=== PATIENT | male | born 1980 | race Caucasian/White ===

== ENCOUNTER 2019-11-15 19:35 | Emergency (ER) | payer OTHER, MEDICAID, SELFPAY ==
[2019-11-15 19:51] VITALS: BP 136/77; PULSE 73; RESP 15; TEMP 36.8; O2SAT 99; BMI 24.4
--- NOTE | 2019-11-15 20:03 | DI.CT.S_ITS ---
PROCEDURE: CT HEAD/BRAIN WO CON INDICATIONS: Trauma -10 ft fall TECHNIQUE: Noncontrast 4.5 mm thick angled axial sections acquired from the foramen magnum to the vertex, with coronal and sagittal reformats. For radiation dose reduction, the following was used: automated exposure control, adjustment of mA and/or kV according to patient size. COMPARISON: None. FINDINGS: Image quality: Excellent. CSF spaces: Basal cisterns are patent. No extra-axial fluid collections. Ventricles are normal in size and shape. Brain: No midline shift. No intracranial masses or hemorrhage. Gold-white matter interface is normal. Skull and face: Calvarium and visualized facial bones are intact, without suspicious lesions. Sinuses: Visualized sinuses and mastoids are clear. IMPRESSION: No acute intracranial process. Dictated by: Vijay Conte M.D. on 11/15/2019 at 21:11 Approved by: Vijay Conte M.D. on 11/15/2019 at 21:13
--- NOTE | 2019-11-15 20:03 | DI.CT.S_ITS ---
PROCEDURE: CT CERVICAL SPINE WO CON INDICATIONS: Trauma - 10 ft.fall TECHNIQUE: Noncontrast 3 mm thick sections acquired from the skull base to the T4 level. Sagittal and coronal reformats were then constructed. For radiation dose reduction, the following was used: automated exposure control, adjustment of mA and/or kV according to patient size. COMPARISON: None. FINDINGS: Image quality: Excellent. Bones: No fractures or dislocations. Visualized superior ribs are intact. Straightening of the normal lordotic curvature. Multilevel degenerative endplate sclerosis and spurring. Diffuse facet arthropathy. There is levocurvature Soft tissues: Prevertebral soft tissues are normal in thickness. No paravertebral hematomas. No apical pneumothoraces. IMPRESSION: No fracture Straightening of the normal lordotic curvature. Dictated by: Vijay Conte M.D. on 11/15/2019 at 21:13 Approved by: Vijay Conte M.D. on 11/15/2019 at 21:18
--- NOTE | 2019-11-15 20:03 | DI.CT.S_ITS ---
PROCEDURE: CT CHEST ABD PEL W CON INDICATIONS: Trauma -10 ft fall TECHNIQUE: After the administration of intravenous contrast, 5 mm thick sections acquired from the lung apices to the symphysis. 2.5 mm thick coronal and sagittal reformats were acquired. Additional 7 mm thick coronal maximum intensity projection (MIP) reformats acquired through the lungs. Optional 10-minute delayed imaging may be performed from the kidneys to the bladder. For radiation dose reduction, the following was used: automated exposure control, adjustment of mA and/or kV according to patient size. COMPARISON: None. FINDINGS: Image quality: Excellent. CHEST: Lungs: No pulmonary contusions or lacerations. No acute airspace opacities. No pneumothorax or hemothorax. Central and peripheral airways appear patent and normal in caliber. Mediastinum: No mediastinal hematomas. Heart size is normal. No pericardial effusion. Thoracic aorta and pulmonary arteries demonstrate normal size and enhancement. No mediastinal or hilar adenopathy. Esophagus is normal in caliber. No hiatal hernia. Chest wall: No rib fractures. No subcutaneous emphysema. No axillary or supraclavicular adenopathy. Thyroid gland negative. ABDOMEN: Solid organs: Liver is normal in size and enhancement, without lacerations. Gallbladder contains tiny incidental 1 mm layering gravel like gallstones. Biliary system is non-dilated. Pancreas enhances normally, without transection. Spleen is normal in size and enhancement, without lacerations. No adrenal hematomas. Both kidneys enhance normally, without hydronephrosis or lacerations. Peritoneum and bowel: No free fluid or air. Unenhanced bowel loops demonstrate normal wall thickness and caliber. Nodes and vessels: No retroperitoneal or mesenteric adenopathy. Aorta and inferior vena cava are normal in size and enhancement. Miscellaneous: No ventral hernias. PELVIS: Genitourinary: Bladder wall thickness is normal. Miscellaneous: No inguinal hernias or adenopathy. Bones: Pelvic ring and hip joints appear intact. No vertebral compression fractures. IMPRESSION: Trace perihepatic fluid although the exact origin is unclear. Elsewhere, no acute abnormality identified Dictated by: Vijay Conte M.D. on 11/15/2019 at 21:18 Approved by: Vijay Conte M.D. on 11/15/2019 at 21:23
[2019-11-15 20:12] VITALS: BP 134/78; PULSE 64; RESP 16; O2SAT 99
--- NOTE | 2019-11-15 20:15 | ED.FALL ---
HPI - Fall General Chief Complaint: Trauma Stated Complaint: head, neck, back pain s/p fall Time Seen by Provider: 11/15/19 19:40 Source: patient and family Mode of arrival: Family Vehicle Limitations: no limitations History of Present Illness HPI Narrative: 39-year-old male nonsmoker with noncontributory medical history presents with his in the chief complaint of multiple injuries after a fall. He was standing a top multiple derrek of hay, approximately 10 ft up when he lost his balance and fell largely onto his right side and back. He denies loss of consciousness and has full recall. Though he complains of midline neck tenderness and tenderness to much of his back his primary complaint is with his right shoulder. He has full range of motion but states that her 20 moves it. He is not dizzy nor weak or lightheaded. He denies any cough, shortness of breath nor nausea or vomiting. Related Data Previous Rx's Medication Instructions Recorded cyclobenzaprine 10 mg PO TID PRN #14 tab 11/15/19 hydrocodone-acetaminophen 1 tab PO Q4-6H PRN #10 tab 11/15/19 ketorolac 10 mg PO Q6H PRN #14 tab 11/15/19 ondansetron 4 mg PO TID-QID PRN #10 tab 11/15/19 Allergies Allergy/AdvReac Type Severity Reaction Status Date / Time amoxicillin Allergy Anaphylaxis Verified 11/15/19 19:53 amitriptyline AdvReac Verified 11/15/19 19:53 diphenhydramine AdvReac Verified 11/15/19 19:53 [From Benadryl] haloperidol [From Haldol] AdvReac Verified 11/15/19 19:53 Review of Systems Constitutional Constitutional: Denies chills, Denies fatigue, Denies fever(s), Denies frequent falls, Denies lethargy and Denies weakness Eyes Eyes: Denies change in vision, Denies eye discharge, Denies irritation and Denies loss of vision ENT Ears, Nose, Mouth, and Throat: Denies change in voice, Denies dizziness, Reports neck pain, Denies sore throat and Denies throat swelling Cardiovascular Cardiovascular: Denies chest pain, Denies irregular heart rhythm, Denies lightheadedness, Denies palpitations, Denies dyspnea, Denies dyspnea on exertion and Denies orthopnea Respiratory Respiratory: Denies cough, Denies dyspnea, Denies dyspnea on exertion and Denies wheezing Gastrointestinal Gastrointestinal: Denies abdominal pain, Denies change in bowel habits, Denies diarrhea, Denies nausea and Denies vomiting Genitourinary Genitourinary: Denies hematuria, Denies flank pain, Denies urinary incontinence and Denies urinary urgency Musculoskeletal Musculoskeletal: Reports back pain, Reports limited range of motion, Denies muscle weakness, Reports neck pain, Denies numbness and Denies tingling Integumentary/Breasts Skin/Breast: Denies pruritus, Denies erythema, Denies rash and Denies wounds Neurologic Neurologic: Denies behavioral changes, Denies confusion, Denies dizziness, Denies frequent falls, Denies loss of vision, Denies numbness, Denies tingling and Denies weakness Psychiatric Psychiatric: Denies anxiety, Denies behavioral changes, Denies confusion, Denies depression, Denies homicidal ideation and Denies suicidal ideation Endocrine Endocrine: Denies fatigue, Denies flushing and Denies palpitations Hematologic/Lymphatic Hematologic/Lymphatic: Denies easy bruising Allergic/Immunologic Allergic/Immunologic: Denies urticaria, Denies throat swelling and Denies wheezing Patient History Social History Smoking Status: Never smoker Smoking Status: Never smoker Substance Use Type: marijuana Exam Narrative Exam Narrative: GENERAL: [39] year old patient appears stated age. Well-nourished, well-developed patient, in mild distress. GCS 15 HEAD: Atraumatic. Normocephalic. EYES: Pupils equal round and reactive. Extraocular motions intact. No scleral icterus. No injection or drainage. ENT: Nose without bleeding, purulent drainage. Throat without erythema, tonsillar hypertrophy or exudate. Airway patent. NECK: Trachea midline. Non tender. Mild midline tenderness, step-offs or crepitance. C-collar in place CARDIOVASCULAR: Regular rate and rhythm without murmurs, gallops, or rubs. RESPIRATORY: Clear to auscultation. Breath sounds equal bilaterally. No wheezes, rales, or rhonchi. GASTROINTESTINAL: Abdomen soft, non-tender, nondistended. EXTREMITIES: No edema or joint tenderness. BACK: Patient has some tenderness to palpation of mid thoracic spine NEURO: AOx3. SKIN: No rash or erythema of visible areas Initial Vital Signs Initial Vital Signs: Vital Signs Temperature 98.3 F 11/15/19 19:51 Pulse Rate 73 11/15/19 19:51 Respiratory Rate 15 11/15/19 19:51 Blood Pressure 136/77 11/15/19 19:51 Pulse Oximetry 99 11/15/19 19:51 Course Orders Ordered: Discontinued Medications Hydrocodone Bitart/Acetaminophen (Vicodin 5/325 Prepack) 1 bottle MISC SEEINSTR ONE Stop: 11/15/19 21:36 Last Admin: 11/15/19 21:54 Dose: 1 bottle Documented by: KIRA Hydromorphone HCl (Dilaudid) 0.5 mg IV NOW ONE Stop: 11/15/19 20:03 Last Admin: 11/15/19 20:47 Dose: 0.5 mg Documented by: KIRA Ketorolac Tromethamine (Toradol) 15 mg IV NOW ONE Stop: 11/15/19 21:36 Last Admin: 11/15/19 21:53 Dose: 15 mg Documented by: KIRA Ondansetron HCl (Zofran) 4 mg IV NOW ONE Stop: 11/15/19 20:03 Last Admin: 11/15/19 20:47 Dose: 4 mg Documented by: KIRA Ondansetron HCl (Zofran Odt Prepack) 1 bottle MISC SEEINSTR ONE Stop: 11/15/19 21:36 Last Admin: 11/15/19 21:54 Dose: 1 bottle Documented by: KIRA Vital Signs Vital signs: Vital Signs - 8 hr 11/15/19 19:51 11/15/19 20:12 Temperature 98.3 F Pulse Rate 73 64 Respiratory Rate 15 16 Blood Pressure 136/77 Blood Pressure [Left Arm] 134/78 Pulse Oximetry 99 99 MDM - Fall Lab Data Result diagrams: 11/15/19 20:05 11/15/19 20:05 Labs: Lab Results 11/15/19 11/15/19 11/15/19 Range/Units 20:05 20:05 20:05 WBC 13.2 H (4.5-11.0) X10^3/uL RBC 3.99 L (4.5-5.9) X10^6/uL Hgb 12.3 L (13.5-17.5) g/dL Hct 36.5 L (41-53) % MCV 91.5 (80-100) fL MCH 30.9 (26-34) PG MCHC 33.8 (30-36) % RDW 14.7 (11.6-14.8) % Plt Count 402 H (150-400) X10^3/uL Neut % (Auto) 82.3 H (50-75) % Lymph % (Auto) 12.5 L (25-40) % [place] % (Auto) 4.2 (3-14) % Eos % (Auto) 0.6 L (2-4) % Baso % (Auto) 0.4 (0-2) % Neut # (Auto) 63727 H (7708-6478) /uL Lymph # (Auto) 1600 (6880-8345) /uL [place] # (Auto) 600 (0-900) /uL Eos # (Auto) 100 (0-450) /uL Baso # (Auto) 100 (0-100) /uL Sodium 142 (137-145) mmol/L Potassium 3.1 L (3.4-5.1) mmol/L Chloride 111 H (98-107) mmol/L Carbon Dioxide 24 (22-32) mmol/L BUN 17 (9-20) mg/dL Creatinine 0.56 L (0.66-1.25) mg/dL Estimated GFR > 60.0 (>60) mL/min BUN/Creatinine Ratio 30.4 H (6-22) Glucose 94 (70-100) mg/dL Calcium 9.2 (8.4-10.2) mg/dL Total Bilirubin 0.9 (0.2-1.3) mg/dL AST 24 (17-59) IU/L ALT 17 (<50) IU/L Alkaline Phosphatase 72 (38-126) U/L Total Protein 6.8 (6.3-8.2) g/dL Albumin 4.0 (3.5-5.0) g/dL Globulin 2.8 (1.7-4.1) g/dL Albumin/Globulin Ratio 1.4 (1.0-2.8) Lipase 53 (23-300) U/L Ethyl Alcohol < 10 ( - 10) mg/dL Blood Type A Positive Antibody Screen Negative Imaging Data CT scan - head: Radiologist's Impression: Tee Greenberg 39 M [address] [address] [address] Scan Report Signed Patient: Tee Greenberg CMR#: [id number] : 1980Acct:[id number] Age/Sex: 39 / MDate of Service: 11/15/19 Loc: ED Accession Number: [id number] Procedure: CT head/brain wo con Ordering Provider: Zohaib Cline D.O. PROCEDURE: CT HEAD/BRAIN WO CON INDICATIONS: Trauma -10 ft fall TECHNIQUE: Noncontrast 4.5 mm thick angled axial sections acquired from the foramen magnum to the vertex, with coronal and sagittal reformats. For radiation dose reduction, the following was used: automated exposure control, adjustment of mA and/or kV according to patient size. COMPARISON: None. FINDINGS: Image quality: Excellent. CSF spaces: Basal cisterns are patent. No extra-axial fluid collections. Ventricles are normal in size and shape. Brain: No midline shift. No intracranial masses or hemorrhage. Gold-white matter interface is normal. Skull and face: Calvarium and visualized facial bones are intact, without suspicious lesions. Sinuses: Visualized sinuses and mastoids are clear. IMPRESSION: No acute intracranial process. Dictated by: Vijay Conte M.D. on 11/15/2019 at 21:11 Approved by: Vijay Conte M.D. on 11/15/2019 at 21:13 [facility] DATE TYPE STATUS AUTHOR Shantanu 11/15/19 20:03 Vijay Conte 11/15/19 20:03 Vijay Conte 11/15/19 20:03 Vijay Conte YariTee Michaela 39, M0 1980 [facility] ER, Main ED R05 180.34cm 79.379kg BMI: 24.4kg/m? Trauma Search Chart No Data to Display No Data to Display Anaphylaxis No Data to Display Today 20:12 Tee Greenberg 39 M [address] [address] [address] Scan Report Signed Patient: Tee Greenberg CMR#: [id number] : 1980Acct:[id number] Age/Sex: 39 / MDate of Service: 11/15/19 Loc: ED Accession Number: [id number] Procedure: CT cervical spine wo con Ordering Provider: Zohaib Cline D.O. PROCEDURE: CT CERVICAL SPINE WO CON INDICATIONS: Trauma - 10 ft.fall TECHNIQUE: Noncontrast 3 mm thick sections acquired from the skull base to the T4 level. Sagittal and coronal reformats were then constructed. For radiation dose reduction, the following was used: automated exposure control, adjustment of mA and/or kV according to patient size. COMPARISON: None. FINDINGS: Image quality: Excellent. Bones: No fractures or dislocations. Visualized superior ribs are intact. Straightening of the normal lordotic curvature. Multilevel degenerative endplate sclerosis and spurring. Diffuse facet arthropathy. There is levocurvature Soft tissues: Prevertebral soft tissues are normal in thickness. No paravertebral hematomas. No apical pneumothoraces. IMPRESSION: No fracture Straightening of the normal lordotic curvature. Dictated by: Vijay Conte M.D. on 11/15/2019 at 21:13 Approved by: Vijay Conte M.D. on 11/15/2019 at 21:18 [facility] DATE TYPE STATUS AUTHOR Hx 11/15/19 20:03 Vijay Conte 11/15/19 20:03 Vijay Conte 11/15/19 20:03 Vijay Conte Michael C 39, M0 1980 [facility] ED R05 180.34cm 79.379kg BMI: 24.4kg/m? Trauma Search Chart No Data to Display No Data to Display Anaphylaxis No Data to Display Today 20:12 Tee Greenberg 39 M 1980 [place] [address] CT Scan Report Signed Patient: Tee Greenberg CMR#: [id number] : 1980Acct:[id number] Age/Sex: 39 / MDate of Service: 11/15/19 Loc: ED Accession Number: [id number] Procedure: CT chest abd pel w con Ordering Provider: Zohaib Cline D.O. PROCEDURE: CT CHEST ABD PEL W CON INDICATIONS: Trauma -10 ft fall TECHNIQUE: After the administration of intravenous contrast, 5 mm thick sections acquired from the lung apices to the symphysis. 2.5 mm thick coronal and sagittal reformats were acquired. Additional 7 mm thick coronal maximum intensity projection (MIP) reformats acquired through the lungs. Optional 10-minute delayed imaging may be performed from the kidneys to the bladder. For radiation dose reduction, the following was used: automated exposure control, adjustment of mA and/or kV according to patient size. COMPARISON: None. FINDINGS: Image quality: Excellent. CHEST: Lungs: No pulmonary contusions or lacerations. No acute airspace opacities. No pneumothorax or hemothorax. Central and peripheral airways appear patent and normal in caliber. Mediastinum: No mediastinal hematomas. Heart size is normal. No pericardial effusion. Thoracic aorta and pulmonary arteries demonstrate normal size and enhancement. No mediastinal or hilar adenopathy. Esophagus is normal in caliber. No hiatal hernia. Chest wall: No rib fractures. No subcutaneous emphysema. No axillary or supraclavicular adenopathy. Thyroid gland negative. ABDOMEN: Solid organs: Liver is normal in size and enhancement, without lacerations. Gallbladder contains tiny incidental 1 mm layering gravel like gallstones. Biliary system is non-dilated. Pancreas enhances normally, without transection. Spleen is normal in size and enhancement, without lacerations. No adrenal hematomas. Both kidneys enhance normally, without hydronephrosis or lacerations. Peritoneum and bowel: No free fluid or air. Unenhanced bowel loops demonstrate normal wall thickness and caliber. Nodes and vessels: No retroperitoneal or mesenteric adenopathy. Aorta and inferior vena cava are normal in size and enhancement. Miscellaneous: No ventral hernias. PELVIS: Genitourinary: Bladder wall thickness is normal. Miscellaneous: No inguinal hernias or adenopathy. Bones: Pelvic ring and hip joints appear intact. No vertebral compression fractures. IMPRESSION: Trace perihepatic fluid although the exact origin is unclear. Elsewhere, no acute abnormality identified Dictated by: Vijay Conte M.D. on 11/15/2019 at 21:18 Approved by: Vijay Conte M.D. on 11/15/2019 at 21:23 Discharge Plan Departure Patient Disposition: Home Clinical Impression: Muscle strain of shoulder region Qualifiers: Encounter type: initial encounter Laterality: right Qualified Code(s): S46.911A - Strain of unspecified muscle, fascia and tendon at shoulder and upper arm level, right arm, initial encounter Discharge Date/Time: 11/15/19 22:14 Instructions: DI for Trauma Activity Restrictions/Additional Instructions: *You have been diagnosed with [fall with contusion, spasm and sprain] *What to do: *Take medications as directed *Follow up with your primary care provider in 2-3 days, call for an appointment. Let them know you were seen in the Emergency Department and that we ask that you be seen in follow up *Return to ER if you should have any new, worsening or concerning symptoms Prescriptions: New cyclobenzaprine 10 mg tablet 10 mg PO TID PRN (Reason: muscle spasm) Qty: 14 RF: 0 hydrocodone-acetaminophen 5-325 mg tablet 1 tab PO Q4-6H PRN (Reason: pain) Qty: 10 RF: 0 ketorolac 10 mg tablet 10 mg PO Q6H PRN (Reason: pain) Qty: 14 RF: 0 ondansetron 4 mg tablet,disintegrating 4 mg PO TID-QID PRN (Reason: nausea and vomiting) Qty: 10 RF: 0 Referrals: Nat Mccormick, [Primary Care Provider] -
[2019-11-15 20:17] LABS: Add Manual Diff / Slide Review NO; Basophils Absolute Auto 100 /uL (0-100); Basophils Percent Auto 0.4 % (0-2); Eosinophils Absolute Auto 100 /uL (0-450); Eosinophils Percent Auto 0.6 % (2-4); Hematocrit 36.5 % (41-53); Hemoglobin 12.3 g/dL (13.5-17.5); Lymphocytes Absolute Auto 1600 /uL (1100-4500); Lymphocytes Percent Auto 12.5 % (25-40); Mean Corpuscular HGB Conc 33.8 % (30-36); Mean Corpuscular Hemoglobin 30.9 PG (26-34); Mean Corpuscular Volume 91.5 fL (80-100); Monocytes Absolute Auto 600 /uL (0-900); Monocytes Percent Auto 4.2 % (3-14); Neutrophils Absolute Auto 10800 /uL (1500-7000); Neutrophils Percent Auto 82.3 % (50-75); Platelet Count 402 X10^3/uL (150-400); Red Blood Cell Count 3.99 X10^6/uL (4.5-5.9); Red Cell Distribution Width 14.7 % (11.6-14.8); White Blood Cell Count 13.2 X10^3/uL (4.5-11.0)
[2019-11-15 20:31] LABS: Alanine Aminotransferase 17 IU/L (<50); Albumin Globulin Ratio 1.4 (1.0-2.8); Alkaline Phosphatase 72 U/L (38-126); Aspartate Aminotransferase 24 IU/L (17-59); BUN Creatinine Ratio 30.4 (6-22); Bilirubin Total 0.9 mg/dL (0.2-1.3); Blood Urea Nitrogen 17 mg/dL (9-20); Calcium 9.2 mg/dL (8.4-10.2); Carbon Dioxide 24 mmol/L (22-32); Chloride 111 mmol/L (98-107); Estimated Glomerular Filt Rate > 60.0 mL/min (>60); Ethanol (ETOH) < 10 mg/dL; Globulin 2.8 g/dL (1.7-4.1); Glucose 94 mg/dL (70-100); HEMOLYSIS < 15 (0-50); Lipase 53 U/L (23-300); Potassium 3.1 mmol/L (3.4-5.1); Sodium 142 mmol/L (137-145); Total Protein 6.8 g/dL (6.3-8.2)
[2019-11-15] MEDS: HYDROMORPHONE 1 MG INJ 0.5 MG IV (20:47)
[2019-11-15] MEDS: ONDANSETRON 4 MG/2 ML INJ IV (20:47)
[2019-11-15] MEDS: KETOROLAC 60 MG/2 ML VIAL 15 MG IV (21:53)
[2019-11-15] MEDS: HYDROCODONE/ACET 5/325 PREPACK 1 BOTTLE MISC (21:54)
[2019-11-15] MEDS: ONDANSETRON 4 MG ODT PREPACK 1 BOTTLE MISC (21:54)
[2019-11-15 22:11] VITALS: BP 136/82; PULSE 52; RESP 18; O2SAT 98
== END 2019-11-15 22:14 | disposition home or self-care (01) ==
PROVIDERS: Emergency Provider Emergency Medicine; PCP Family Medicine
DX: S46.911A Strain of unspecified muscle, fascia and tendon at shoulder and upper arm level, right arm, initial encounter (principal); S19.9XXA Unspecified injury of neck, initial encounter; S09.90XA Unspecified injury of head, initial encounter; W19.XXXA Unspecified fall, initial encounter
CPT/HCPCS: 36415; 70450; 71260; 72125; 74177; 80053; 80320; 83690; 85025; 86850; 86900; 86901; 96374; 96375; 99285; J1170; J1885; J2405; Q9967

== ENCOUNTER 2019-12-26 15:57 | Emergency (ER) | payer OTHER, MEDICAID, SELFPAY ==
--- NOTE | 2019-12-26 16:06 | ED_ITS ---
HPI - General Adult General Chief complaint: Extremity Injury, Lower Stated complaint: poss broken right foot/big toe knuckle Time Seen by Provider: 12/26/19 16:00 Source: patient Mode of arrival: Ambulatory Limitations: no limitations History of Present Illness HPI narrative: 39-year-old male here for evaluation of right foot/great toe pain. Patient states that for the past week he has had pain on the inside of his right foot. Approximately 3 hours ago when he was rolling over a stone with his foot he had a sudden increase in pain. Points to the area at the base of his great toe in the medial aspect is the greatest source of his pain. Other than this no specific trauma. Has not tried anything for symptoms. No prior injuries to his knowledge. Related Data Previous Rx's Medication Instructions Recorded cyclobenzaprine 10 mg PO TID PRN #14 tab 11/15/19 ketorolac 10 mg PO Q6H PRN #14 tab 11/15/19 ondansetron 4 mg PO TID-QID PRN #10 tab 11/15/19 hydrocodone-acetaminophen [P[place]] 1 tab PO Q6H PRN #10 tab 11/16/19 Allergies Allergy/AdvReac Type Severity Reaction Status Date / Time amoxicillin Allergy Anaphylaxis Verified 11/15/19 19:53 amitriptyline AdvReac Verified 11/15/19 19:53 diphenhydramine AdvReac Verified 11/15/19 19:53 [From Benadryl] haloperidol [From Haldol] AdvReac Verified 11/15/19 19:53 Review of Systems Constitutional Constitutional: Denies fever(s) Musculoskeletal Comments: Right great toe/foot pain Integumentary/Breasts Skin/Breast: Denies lesions and Denies rash Neurologic Comments: Tingling down the inside of his right foot Hematologic/Lymphatic Hematologic/Lymphatic: Denies easy bleeding and Denies easy bruising Patient History Medical History Healthy adult (Acute) Social History Smoking Status: Never smoker Smoking Status: Never smoker Substance Use Type: marijuana Exam Initial Vital Signs Initial Vital Signs: Vital Signs Temperature 98.6 F 12/26/19 16:07 Pulse Rate 60 12/26/19 16:07 Respiratory Rate 16 12/26/19 16:07 Blood Pressure 155/80 H 12/26/19 16:07 Pulse Oximetry 97 12/26/19 16:07 Const General: cooperative, comfortable and well developed Cardio Pulses: dorsalis pedis present on the right Skin Lesions: no lesions Rashes: no rashes Neuro Sensory Exam: no sensory deficits noted Extrem Other: Patient's right foot exam unremarkable except for tenderness to palpation along the MTP joint and specifically along bony prominence medial aspect of the base of the right great toe. Exam fairly consistent with a bunion. Course Orders Ordered: ED Orders 12/26/19 16:07 XR foot RT min 3V Stat Vital Signs Vital signs: Vital Signs - 8 hr 12/26/19 16:07 12/26/19 16:52 Temperature 98.6 F Pulse Rate 60 47 L Respiratory Rate 16 16 Blood Pressure 155/80 H Blood Pressure [Left Arm] 138/80 Pulse Oximetry 97 98 Medical Decision Making Imaging Data Extremity x-ray #1: Radiologist's Impression: [address] [address] XRay Report Signed Patient: Tee Greenberg CMR#: [id number] : 1980Acct:[id number] Age/Sex: 39 / MDate of Service: 12/26/19 Loc: ED Accession Number: [id number] Procedure: XR foot RT min 3V Ordering Provider: Tee Ohara D.O. PROCEDURE: XR FOOT RT MIN 3V INDICATIONS: pain in R foot x 1 week TECHNIQUE: 3 views of the foot were acquired. COMPARISON: None. FINDINGS: Bones: No fractures or dislocations. No suspicious bony lesions. Soft tissues: No tibiotalar joint effusion. Achilles tendon appears normal. IMPRESSION: No trauma found. Source of pain is not identified. Dictated by: Agapito Beauchamp M.D. on 12/26/2019 at 15:42 Approved by: Agapito Beauchamp M.D. on 12/26/2019 at 15:43 MDM Narrative Medical decision making narrative: X-ray shows no signs of a fracture. He is neurovascularly intact. Potentially has ligamentous injury to the medial aspect of the MTP joint of his right great toe however is difficult to establish that here in the ER. He was wearing a steel-toed shoe at the time that he was pushing over the rock. Discussed the use of Tylenol and/or ibuprofen for discomfort. Was given a hard sole shoe to help with symptom control. Feel we can hold on further workup for now. Patient is given return precautions. He expressed understanding and agreement. Discharge Plan Departure Prescriptions: No Action cyclobenzaprine 10 mg tablet 10 mg PO TID PRN (Reason: muscle spasm) Qty: 14 RF: 0 ketorolac 10 mg tablet 10 mg PO Q6H PRN (Reason: pain) Qty: 14 RF: 0 ondansetron 4 mg tablet,disintegrating 4 mg PO TID-QID PRN (Reason: nausea and vomiting) Qty: 10 RF: 0 hydrocodone-acetaminophen [P[place]illy] 5-325 mg tablet 1 tab PO Q6H PRN (Reason: pain) Qty: 10 RF: 0
[2019-12-26 16:07] VITALS: BP 155/80; PULSE 60; RESP 16; TEMP 37; O2SAT 97; BMI 23.6
[2019-12-26 16:52] VITALS: BP 138/80; PULSE 47; RESP 16; O2SAT 98
== END 2019-12-26 17:16 | disposition home or self-care (01) ==
PROVIDERS: Emergency Provider Emergency Medicine; PCP Family Medicine
DX: M79.674 Pain in right toe(s) (principal)
CPT/HCPCS: 73630; 99283

== ENCOUNTER 2020-02-12 11:55 | Emergency (ER) | payer OTHER, MEDICAID, SELFPAY ==
[2020-02-12 12:04] VITALS: BP 149/86; PULSE 65; RESP 14; O2SAT 97; BMI 22.3
[2020-02-12 16:30] VITALS: BP 135/69; PULSE 87; RESP 18; O2SAT 99
--- NOTE | 2020-02-12 16:31 | DI.RAD.S_ITS ---
PROCEDURE: XR LUMBAR SPINE 2-3V INDICATIONS: thoracic and lumbar back pain TECHNIQUE: Three views of the lumbar spine were acquired. COMPARISON: None. FINDINGS: Bones: Five [id number] vertebrae are present. There is normal bony alignment. No vertebral body compression fractures. No suspicious bony lesions. Soft tissues: Overlying bowel gas pattern is normal. No suspicious soft tissue calcifications. IMPRESSION: Normal lumbar spine. Dictated by: Jennifer Rodriguez M.D. on 02/12/2020 at 16:17 Approved by: Jennifer Rodriguez M.D. on 02/12/2020 at 16:17
--- NOTE | 2020-02-12 16:31 | DI.RAD.S_ITS ---
PROCEDURE: XR THORACIC SPINE 3V INDICATIONS: thoracic and lumbar back pain TECHNIQUE: Three views of the thoracic spine were acquired. COMPARISON: None. FINDINGS: Bones: No fractures or dislocations. No suspicious bony lesions. 12 pairs of ribs are noted, and appear intact where visualized. Soft tissues: No paravertebral stripe thickening. IMPRESSION: Normal thoracic spine. Dictated by: Jennifer Rodriguez M.D. on 02/12/2020 at 16:10 Approved by: Jennifer Rodriguez M.D. on 02/12/2020 at 16:16
--- NOTE | 2020-02-12 16:39 | ED_ITS ---
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 Patient reports he had moved 60 lb concrete back 5 days ago since then he has been having acute pain on chronic back pain. He states he was seen at [facility] ER and he was given steroids which he had completed for 5 day course. Patient reports no imaging test was done during this visit. Patient reports slight improvement in pressure-like discomfort after the steroids. However, he continues to have constant L4 and L5 back pain which radiates up to his neck and right-sided abdomen. Patient reports pain worsened with movement. Patient reports he has urinary urgency, frequency, dysuria but denies hematuria. Patient denies fever, chills, nausea or vomiting, or rash in his back. Patient denies urinary retention, incontinence for stool or bladder, overt saddle anesthesia. Patient denies IV drug use in the past. Patient reports numbness mostly in anterior and occasional posterior in bilateral legs which comes as a wave. He has been resting his back since the acute pain. He has been using methocarbamol, gabapentin, Motrin, hydrocodone for back pain without much improvement and he continues to take his routine psych medications. Patient is requesting MRI test. Patient does not have primary care physician but sees medical providers at [facility] and used to see Dr. Jacobs. Patient states he was proven for back surgery by technology infusion specialist but had difficult time with medical insurance to forego with this. Related Data Previous Rx's Medication Instructions Recorded cyclobenzaprine 10 mg PO TID PRN #14 tab 11/15/19 ondansetron 4 mg PO TID-QID PRN #10 tab 11/15/19 hydrocodone-acetaminophen [[place]] 1 tab PO Q6H PRN #10 tab 05/07/20 ketorolac 10 mg PO Q8H PRN 5 Days #15 tab 02/12/20 Allergies Allergy/AdvReac Type Severity Reaction Status Date / Time amoxicillin Allergy Anaphylaxis Verified 11/15/19 19:53 amitriptyline AdvReac Verified 11/15/19 19:53 diphenhydramine AdvReac Verified 11/15/19 19:53 [From Benadryl] haloperidol [From Haldol] AdvReac Verified 11/15/19 19:53 Review of Systems <BRAD Sharp - Last Filed: 02/12/20 21:57> Review of Systems Narrative: General: Denies fever, chills, fatigue, malaise, sweats. HEENT: Denies sinus pain, ear pain, sore throat, difficulty swallowing, dizziness. Respiratory: Denies dyspnea, cough, wheezing, hemoptysis, sputum. Cardiovascular: Denies chest pain, palpitations, orthopnea, edema. Gastrointestinal: See HPI : See HPI Musculoskeletal: See HPI Skin: Denies rash, skin lesions, or other. Neurologic: Denies weakness, headache, numbness, change in speech, confusion, seizures, incoordination. Psychiatric: No concerning psychosocial issues. 12-point review of systems is negative except for those stated above. Patient History <BRAD Sharp - Last Filed: 02/12/20 21:57> Medical History (Updated 02/12/20 @ 18:02 by BRAD Sharp) Compression fracture (Acute) Head injury (Acute) PTSD (post-traumatic stress disorder) (Acute) Surgical History (Updated 02/12/20 @ 16:46 by BRAD Sharp) History of appendectomy (Acute) Social History (Updated 02/12/20 @ 16:47 by BRAD Sharp) Smoking Status: Current every day smoker alcohol intake: former substance use type: marijuana Smoking Status: Current every day smoker tobacco type: cigarettes alcohol intake frequency: 0-2 drinks per day Substance Use Type: marijuana Exam <BRAD Sharp - Last Filed: 02/12/20 21:57> Narrative Exam Narrative: GEN: Alert, oriented x 3, well appearing and nourished, and in no acute distress. Head: Normal cephalic, atraumatic. No scalp or temporal tenderness, palpable mass or rash. EYES: Pupils are equal, round, and reactive to light and accommodation. Extraocular muscles are intact bilaterally. There is no subconjunctival hemorrhage, exudate and sclera non-icteric. ENT: Hearing grossly intact. Airway patent. Neck: Trachea in midline. No JVD, non-tender without lymphadenopathy. No masses or thyroid megaly. Supple, non-tender and no meningeal signs. CARDIAC: Normal [place] rate and rhythm without murmurs, gallops, or rubs. No chest wall tenderness. No peripheral edema, cyanosis or pallor. Capillary refill is less than 2 seconds. RESPIRATORY: Lungs are clear to auscultate bilaterally. No cough, wheezes, rales, or rhonchi. No stridor, respiratory distress, increase work of breathing, or accessary muscle used. ABD: Abdomen soft, non distension, tender to palpate in bilateral quadrant worsen right-sided. No guarding or rebound tenderness to palpate. Bowel sounds are normal in all 4 quadrants. There is no palpable masses or organomegaly. EXT: Full painless ROM of all extremities with no loss of sensation, strength, effusion or edema. SKIN: Warm, dry, normal color for patient. No erythema, lesions or rash over visible areas. NEUROLOGICAL: Alert and oriented to place, time and person. Sensation and motor function intact bilaterally. No facial droops, dysphasia. PSYCHIATRIC: Good judgement and reason, without hallucinations, abnormal affect or abnormal behaviors during the examination. Patient is not suicidal. Initial Vital Signs Initial Vital Signs: Vital Signs Pulse Rate 65 02/12/20 12:04 Respiratory Rate 14 02/12/20 12:04 Blood Pressure 149/86 H 02/12/20 12:04 Pulse Oximetry 97 02/12/20 12:04 Back/Spine/Pelvis Back: normal to inspection, back tenderness, No CVA tenderness, No ecchymosis, No erythema, No mass and No warmth Thoracic/Lumbar Spine: thoracic and lumbar spine normal to inspection, No surgical scar(s) present, pain with thoraco-lumbar ROM, paraspinal tenderness, thoraco-lumbar spasm, thoracic spinal tenderness, lumbar spinal tenderness and straight leg raise positive <Lincoln Ferreira MD - Last Filed: 02/13/20 08:13> Initial Vital Signs Initial Vital Signs: Vital Signs Pulse Rate 65 08/03/20 12:04 Respiratory Rate 14 02/12/20 12:04 Blood Pressure 149/86 H 02/12/20 12:04 Pulse Oximetry 97 02/12/20 12:04 Scores <BRAD Sharp - Last Filed: 02/12/20 21:57> GCS Romain coma scale eye opening: Spontaneous Romain coma scale verbal response: Orientated Romain coma scale motor response: Obey commands Romain coma scale total score: 15 Course <BRAD Sharp - Last Filed: 02/12/20 21:57> Orders Ordered: Discontinued Medications Cyclobenzaprine HCl (Flexeril) 10 mg PO NOW ONE Stop: 02/12/20 16:35 Last Admin: 02/12/20 16:58 Dose: 10 mg Documented by: KIRA Ketorolac Tromethamine (Toradol) 30 mg IM NOW ONE Stop: 02/12/20 16:32 Last Admin: 02/12/20 16:58 Dose: 30 mg Documented by: KIRA Lidocaine (Lidoderm) 2 each TOP NOW ONE Stop: 02/12/20 16:32 Last Admin: 02/12/20 16:58 Dose: 2 each Documented by: KIRA Lidocaine (Lidoderm (Remove Patch)) 1 each TOP BEDTIME KEYLA Vital Signs Vital signs: Vital Signs - 8 hr 02/12/20 16:30 02/12/20 18:36 Pulse Rate 87 51 L Respiratory Rate 18 14 Blood Pressure 135/69 140/84 Pulse Oximetry 99 98 <Lincoln Ferreira MD - Last Filed: 02/13/20 08:13> Orders Ordered: Discontinued Medications Cyclobenzaprine HCl (Flexeril) 10 mg PO NOW ONE Stop: 02/12/20 16:35 Last Admin: 02/12/20 16:58 Dose: 10 mg Documented by: KIRA Ketorolac Tromethamine (Toradol) 30 mg IM NOW ONE Stop: 02/12/20 16:32 Last Admin: 02/12/20 16:58 Dose: 30 mg Documented by: KIRA Lidocaine (Lidoderm) 2 each TOP NOW ONE Stop: 02/12/20 16:32 Last Admin: 02/12/20 16:58 Dose: 2 each Documented by: KIRA Lidocaine (Lidoderm (Remove Patch)) 1 each TOP BEDTIME KEYLA Vital Signs Vital signs: Vital Signs - 8 hr 02/12/20 16:30 02/12/20 18:36 Pulse Rate 87 51 L Respiratory Rate 18 14 Blood Pressure 135/69 140/84 Pulse Oximetry 99 98 MDM - Back Pain/Injury <Gerry BRAD Ramon - Last Filed: 02/12/20 21:57> Differential Diagnosis Differential diagnosis: Likely lumbar radiculopathy, strain of lumbar region, thoracic back pain, discitis and other (Abscess, cauda equina syndrome) Medical Records Attestation: I reviewed the patient's medical records. Lab Data Attestation: I reviewed the patient's lab results. Result diagrams: 02/12/20 16:51 02/12/20 16:51 Labs: Lab Results 02/12/20 02/12/20 02/12/20 Range/Units 16:51 16:51 18:15 WBC 10.1 (4.5-11.0) X10^3/uL RBC 4.42 L (4.5-5.9) X10^6/uL Hgb 13.7 (13.5-17.5) g/dL Hct 40.0 L (41-53) % MCV 90.5 (80-100) fL MCH 31.0 (26-34) PG MCHC 34.3 (30-36) % RDW 14.4 (11.6-14.8) % Plt Count 478 H (150-400) X10^3/uL Neut % (Auto) 60.8 (50-75) % Lymph % (Auto) 32.7 (25-40) % [place] % (Auto) 4.5 (3-14) % Eos % (Auto) 1.5 L (2-4) % Baso % (Auto) 0.5 (0-2) % Neut # (Auto) 6100 (8391-2496) /uL Lymph # (Auto) 3300 (4602-5677) /uL [place] # (Auto) 500 (0-900) /uL Eos # (Auto) 200 (0-450) /uL Baso # (Auto) 0 (0-100) /uL ESR 2 (0-15) MM/HR Sodium 142 (137-145) mmol/L Potassium 3.5 (3.4-5.1) mmol/L Chloride 109 H (98-107) mmol/L Carbon Dioxide 28 (22-32) mmol/L BUN 13 (9-20) mg/dL Creatinine 0.60 L (0.66-1.25) mg/dL Estimated GFR > 60.0 (>60) mL/min BUN/Creatinine Ratio 21.7 (6-22) Glucose 97 (70-100) mg/dL Calcium 9.9 (8.4-10.2) mg/dL Total Bilirubin 0.5 (0.2-1.3) mg/dL AST 19 (17-59) IU/L ALT 15 (<50) IU/L Alkaline Phosphatase 60 (38-126) U/L C-Reactive Protein < 0.5 (<1.0) mg/dL Total Protein 6.8 (6.3-8.2) g/dL Albumin 4.4 (3.5-5.0) g/dL Globulin 2.4 (1.7-4.1) g/dL Albumin/Globulin Ratio 1.8 (1.0-2.8) Urine RBC None seen (0-5/HPF) Urine WBC 5-10/hpf H (0-5/HPF) Ur Squamous Epith Cells 0-1 /hpf (0-5/HPF) Urine Bacteria Moderate (10-30) H (None) Ur Culture Indicated? Specimen cultured Urine Dip Bedside Urine Glucose Negative Bedside Urine Bilirubin - Negative Bedside Urine Ketone - Negative Urine Specific [place] 1.010 Bedside Urine Occult Blood - Negative Bedside Urine pH 7.5 Bedside Urine Protein - Negative Bedside Urine Urobilinogen - Negative Bedside Urine Nitrite - Negative Bedside Urine Leukocytes +/- 15 Esterase Imaging Data XR-Thoracic: Radiologist's Impression: [address] [address] XRay Report Signed Patient: Tee Greenberg CMR#: [id number] : 1980Acct:[id number] Age/Sex: 39 / MDate of Service: 02/12/20 Loc: ED Accession Number: [id number] Procedure: XR thoracic spine 3V Ordering Provider: Gerry Ramon PROCEDURE: XR THORACIC SPINE 3V INDICATIONS: thoracic and lumbar back pain TECHNIQUE: Three views of the thoracic spine were acquired. COMPARISON: None. FINDINGS: Bones: No fractures or dislocations. No suspicious bony lesions. 12 pairs of ribs are noted, and appear intact where visualized. Soft tissues: No paravertebral stripe thickening. IMPRESSION: Normal thoracic spine. Dictated by: Jennifer Rodriguez M.D. on 02/12/2020 at 16:10 Approved by: Jennifer Rodriguez M.D. on 02/12/2020 at 16:16 XR-Lumbar: Radiologist's Impression: [address] [address] XRay Report Signed Patient: Tee Greenberg CMR#: [id number] : 1980Acct:[id number] Age/Sex: 39 / MDate of Service: 02/12/20 Loc: ED Accession Number: [id number] Procedure: XR lumbar spine 2-3V Ordering Provider: Gerry Ramon PROCEDURE: XR LUMBAR SPINE 2-3V INDICATIONS: thoracic and lumbar back pain TECHNIQUE: Three views of the lumbar spine were acquired. COMPARISON: None. FINDINGS: Bones: Five [id number] vertebrae are present. There is normal bony alignment. No vertebral body compression fractures. No suspicious bony lesions. Soft tissues: Overlying bowel gas pattern is normal. No suspicious soft tissue calcifications. IMPRESSION: Normal lumbar spine. Dictated by: Jennifer Rodriguez M.D. on 02/12/2020 at 16:17 Approved by: Jennifer Rodriguez M.D. on 02/12/2020 at 16:17 [facility] Narrative Medical decision making narrative: This is a 39-year-old gentleman who presents to ED with acute thoracic and back pain who has history of back pain and compression fracture in the past after he was carrying heavy bag of cement 5 days ago. He was evaluated and treated at [facility] with steroids that any imaging test. Patient is here requesting MRI test. Patient reports radiculopathy pain to right-sided abdomen worse than left side but does not exhibit red flag symptoms. Patient is afebrile with within normal range of vital signs. Patient has no history of IV drug use in the past. Explained to patient that MRI test is not obtainable today and this could be arranged by his primary care physician and it is unlikely the patient's symptoms are warrants requiring an emergent surgical intervention. X-ray test of lumbar and thoracic region without acute findings. No leukocytosis per CBC with normal ESR and CRP and it is unlikely patient has epidural abscess or infection. Patient reports dysuria. POC urine test shows +/-leukoesterase without urine nitrite. Micro urine test shows moderate bacteria and 5-10/hpf urine WBC and urine culture is pending. Patient was treated IM Toradol, Flexeril,and Lidocaine patches and patient reports improved discomfort. Patient discharged to home with short course of p.o. Ketolac and to advised to use [id number] 4% lidocaine patch and to continue with his current pain management regimen. We discussed NSAIDS precautions. Return precautions were discussed with patient and patient advised to follow with primary care physician at [facility] for further evaluation and treatment such as physical therapy, spinal injection and further imaging tests as warrants. Patient verbalized understanding and agreement with treatment plan. <Lincoln Ferreira MD - Last Filed: 02/13/20 08:13> Lab Data Labs: Lab Results 02/12/20 02/12/20 02/12/20 Range/Units 16:51 16:51 18:15 WBC 10.1 (4.5-11.0) X10^3/uL RBC 4.42 L (4.5-5.9) X10^6/uL Hgb 13.7 (13.5-17.5) g/dL Hct 40.0 L (41-53) % MCV 90.5 (80-100) fL MCH 31.0 (26-34) PG MCHC 34.3 (30-36) % RDW 14.4 (11.6-14.8) % Plt Count 478 H (150-400) X10^3/uL Neut % (Auto) 60.8 (50-75) % Lymph % (Auto) 32.7 (25-40) % [place] % (Auto) 4.5 (3-14) % Eos % (Auto) 1.5 L (2-4) % Baso % (Auto) 0.5 (0-2) % Neut # (Auto) 6100 (7755-7225) /uL Lymph # (Auto) 3300 (5415-6094) /uL [place] # (Auto) 500 (0-900) /uL Eos # (Auto) 200 (0-450) /uL Baso # (Auto) 0 (0-100) /uL ESR 2 (0-15) MM/HR Sodium 142 (137-145) mmol/L Potassium 3.5 (3.4-5.1) mmol/L Chloride 109 H (98-107) mmol/L Carbon Dioxide 28 (22-32) mmol/L BUN 13 (9-20) mg/dL Creatinine 0.60 L (0.66-1.25) mg/dL Estimated GFR > 60.0 (>60) mL/min BUN/Creatinine Ratio 21.7 (6-22) Glucose 97 (70-100) mg/dL Calcium 9.9 (8.4-10.2) mg/dL Total Bilirubin 0.5 (0.2-1.3) mg/dL AST 19 (17-59) IU/L ALT 15 (<50) IU/L Alkaline Phosphatase 60 (38-126) U/L C-Reactive Protein < 0.5 (<1.0) mg/dL Total Protein 6.8 (6.3-8.2) g/dL Albumin 4.4 (3.5-5.0) g/dL Globulin 2.4 (1.7-4.1) g/dL Albumin/Globulin Ratio 1.8 (1.0-2.8) Urine RBC None seen (0-5/HPF) Urine WBC 5-10/hpf H (0-5/HPF) Ur Squamous Epith Cells 0-1 /hpf (0-5/HPF) Urine Bacteria Moderate (10-30) H (None) Ur Culture Indicated? Specimen cultured Urine Dip Bedside Urine Glucose Negative Bedside Urine Bilirubin - Negative Bedside Urine Ketone - Negative Urine Specific [place] 1.010 Bedside Urine Occult Blood - Negative Bedside Urine pH 7.5 Bedside Urine Protein - Negative Bedside Urine Urobilinogen - Negative Bedside Urine Nitrite - Negative Bedside Urine Leukocytes +/- 15 Esterase Discharge Plan Departure Patient Disposition: Home Clinical Impression: Acute back pain with radiculopathy Discharge Date/Time: 02/12/20 18:38 Instructions: DI for Back Strain or Sprain Activity Restrictions/Additional Instructions: You have been diagnosed with [thoracic and lumbar pain with radiculopathy. No indications for infection according to blood test. Acute findings in x-ray in lumbar and thoracic region. Urine culture is pending]. What to do: *Take your medications as directed. He can continue to take your pain regimen at home. Lidocaine patch 4% [id number] which stays on for 12 hours and off for 12 hours. Ketolac 10mg 3 times a day as needed for pain. Please take this medication with food to decrease GI irritation. This medication has been transmitted to [facility] in [place]. Also, you can pick pulling machine tender [id number] omeprazole while your taking this medications. Please do not take additional NAIDS while your taking this such as Aleve, ibuprofen, Motrin, Naprosyn, etc. *Follow up with your primary care provider in 2-3 days, call for an appointment. Let them know you were seen in the ED and that we asked you to be seen in follow up. *Return to ED if you have any new, worsening, or concerning symptoms, such as [fever, chest pain, breathing difficulty, unable to tolerate fluids, increasing weakness/numbness in extremities, incontinence for bowel or bladder numbness to her groin region, rash on her back or any acute concerns]. Prescriptions: New ketorolac 10 mg tablet 10 mg PO Q8H PRN (Reason: pain) 5 Days Qty: 15 RF: 0 No Action cyclobenzaprine 10 mg tablet 10 mg PO TID PRN (Reason: muscle spasm) Qty: 14 RF: 0 ondansetron 4 mg tablet,disintegrating 4 mg PO TID-QID PRN (Reason: nausea and vomiting) Qty: 10 RF: 0 hydrocodone-acetaminophen [[place]] 5-325 mg tablet 1 tab PO Q6H PRN (Reason: pain) Qty: 10 RF: 0 Referrals: Nat Mccormick DO [Primary Care Provider] -
[2020-02-12] MEDS: CYCLOBENZAPRINE 10 MG TABLET PO (16:58)
[2020-02-12] MEDS: LIDOCAINE PATCH 1 EACH ADH..PATCH 2 EACH TOP (16:58)
[2020-02-12] MEDS: KETOROLAC 60 MG/2 ML VIAL 30 MG IM (16:58)
[2020-02-12 17:00] LABS: Add Manual Diff / Slide Review NO; Basophils Absolute Auto 0 /uL (0-100); Basophils Percent Auto 0.5 % (0-2); Eosinophils Absolute Auto 200 /uL (0-450); Eosinophils Percent Auto 1.5 % (2-4); Hemoglobin 13.7 g/dL (13.5-17.5); Lymphocytes Absolute Auto 3300 /uL (1100-4500); Lymphocytes Percent Auto 32.7 % (25-40); Mean Corpuscular HGB Conc 34.3 % (30-36); Mean Corpuscular Volume 90.5 fL (80-100); Monocytes Absolute Auto 500 /uL (0-900); Monocytes Percent Auto 4.5 % (3-14); Neutrophils Absolute Auto 6100 /uL (1500-7000); Neutrophils Percent Auto 60.8 % (50-75); Platelet Count 478 X10^3/uL (150-400); Red Blood Cell Count 4.42 X10^6/uL (4.5-5.9); Red Cell Distribution Width 14.4 % (11.6-14.8); White Blood Cell Count 10.1 X10^3/uL (4.5-11.0)
[2020-02-12 17:15] LABS: Alanine Aminotransferase 15 IU/L (<50); Albumin 4.4 g/dL (3.5-5.0); Albumin Globulin Ratio 1.8 (1.0-2.8); Alkaline Phosphatase 60 U/L (38-126); Aspartate Aminotransferase 19 IU/L (17-59); BUN Creatinine Ratio 21.7 (6-22); Bilirubin Total 0.5 mg/dL (0.2-1.3); Blood Urea Nitrogen 13 mg/dL (9-20); Calcium 9.9 mg/dL (8.4-10.2); Carbon Dioxide 28 mmol/L (22-32); Chloride 109 mmol/L (98-107); Estimated Glomerular Filt Rate > 60.0 mL/min (>60); Globulin 2.4 g/dL (1.7-4.1); Glucose 97 mg/dL (70-100); HEMOLYSIS < 15 (0-50); Potassium 3.5 mmol/L (3.4-5.1); Sodium 142 mmol/L (137-145); Total Protein 6.8 g/dL (6.3-8.2)
[2020-02-12 17:17] LABS: C-Reactive Protein Quant < 0.5 mg/dL (<1.0)
[2020-02-12 17:41] LABS: Erythrocyte Sedimentation Rate 2 MM/HR (0-15)
[2020-02-12 18:24] LABS: RBC Urine None Seen (0-5/HPF)
[2020-02-12 18:36] VITALS: BP 140/84; PULSE 51; RESP 14; O2SAT 98
[2020-02-12 18:36] LABS: Bacteria Urine Moderate (10-30); Culture Indicated Urine Specimen Cultured; Squamous Epithelial Cell Urine 0-1 /HPF (0-5/HPF); WBC Urine 5-10/HPF (0-5/HPF)
== END 2020-02-12 18:38 | disposition home or self-care (01) ==
PROVIDERS: Emergency Provider Nurse Practitioner Family; PCP Family Medicine
DX: M54.16 Radiculopathy, lumbar region (principal); M54.14 Radiculopathy, thoracic region; R30.0 Dysuria; R20.0 Anesthesia of skin; Z87.310 Personal history of (healed) osteoporosis fracture
CPT/HCPCS: 36415; 72072; 72100; 80053; 81003; 81015; 85025; 85651; 86140; 87077; 87086; 87186; 96372; 99284; J1885

== ENCOUNTER 2020-06-18 20:52 | Emergency (ER) | payer OTHER, MEDICAID, SELFPAY ==
[2020-06-18 21:03] VITALS: BP 121/69; PULSE 60; RESP 18; TEMP 37.1; O2SAT 98
--- NOTE | 2020-06-18 21:09 | ED.ABDPAIN ---
HPI - Abdominal Pain General Chief Complaint: Abdominal Pain Stated Complaint: GROIN AREA PAIN Time Seen by Provider: 06/18/20 20:55 Source: patient Mode of arrival: Ambulatory Limitations: no limitations History of Present Illness HPI narrative: 39-year-old male daily smoker presents with his significant other and a chief complaint of pain in his left lower quadrant which has been present over the past few months but significantly worse over the past 4 days. He states there has been a bulge there that seems to cause significant pain with bowel movements and when standing and goes away when he lays flat. He has had no fever chills. He denies any nausea or vomiting. He states that the problem has been developing for some time and he has been seen at other facilities and had reassuring lab work and imaging, but he was not having the bulge at that time. MD complaint: abdominal pain Onset (ago): month(s) Pain Consistency: intermittent and now resolved Location: LLQ Quality: cramping and aching Radiation: none Relieving factors: other (laying flat) Exacerbating factors: bowel movement and other (standing up, lifting) Associated symptoms: denies other symptoms Related Data Previous Rx's Medication Instructions Recorded cyclobenzaprine 10 mg PO TID PRN #14 tab 11/15/19 ondansetron 4 mg PO TID-QID PRN #10 tab 11/15/19 hydrocodone-acetaminophen [[employer]] 1 tab PO Q6H PRN #10 tab 11/16/19 Allergies Allergy/AdvReac Type Severity Reaction Status Date / Time amoxicillin Allergy Anaphylaxis Verified 11/15/19 19:53 amitriptyline AdvReac Verified 11/15/19 19:53 diphenhydramine AdvReac Verified 11/15/19 19:53 [From Benadryl] haloperidol [From Haldol] AdvReac Verified 11/15/19 19:53 Review of Systems Constitutional Constitutional: Denies chills, Denies fatigue, Denies fever(s), Denies frequent falls, Denies lethargy and Denies weakness Eyes Eyes: Denies change in vision, Denies eye discharge, Denies irritation and Denies loss of vision ENT Ears, Nose, Mouth, and Throat: Denies change in voice, Denies dizziness, Denies neck pain, Denies sore throat and Denies throat swelling Cardiovascular Cardiovascular: Denies chest pain, Denies irregular heart rhythm, Denies lightheadedness, Denies palpitations, Denies dyspnea, Denies dyspnea on exertion and Denies orthopnea Respiratory Respiratory: Denies cough, Denies dyspnea, Denies dyspnea on exertion and Denies wheezing Gastrointestinal Gastrointestinal: Reports abdominal pain, Denies change in bowel habits, Denies diarrhea, Denies nausea and Denies vomiting Musculoskeletal Musculoskeletal: Denies neck pain and Denies numbness Integumentary/Breasts Skin/Breast: Denies pruritus, Denies erythema, Denies rash and Denies wounds Neurologic Neurologic: Denies behavioral changes, Denies confusion, Denies dizziness, Denies frequent falls, Denies loss of vision, Denies numbness and Denies weakness Psychiatric Psychiatric: Denies anxiety, Denies behavioral changes, Denies confusion, Denies depression, Denies homicidal ideation and Denies suicidal ideation Endocrine Endocrine: Denies fatigue, Denies flushing and Denies palpitations Hematologic/Lymphatic Hematologic/Lymphatic: Denies easy bruising Allergic/Immunologic Allergic/Immunologic: Denies urticaria, Denies throat swelling and Denies wheezing Patient History Medical History Compression fracture Head injury PTSD (post-traumatic stress disorder) Surgical History History of appendectomy Social History Smoking Status: Current every day smoker alcohol intake: former substance use type: marijuana Smoking Status: Current every day smoker tobacco type: cigarettes alcohol intake frequency: 0-2 drinks per day Substance Use Type: marijuana Exam Narrative Exam Narrative: GEN: AOx3 and in mild distress EYES: Pupils are equal, round, and reactive to light and accommodation. Extraoccular muscles are intact bilaterally. There is no subconjunctival hemorrhage or exudate. CHEST: Lungs are clear to auscultation bilaterally and free of wheezes, rales, or rhonchi. Heart rate is regular rhythm, there are no murmurs, clicks, rubs, or gallops. There is no chest wall tenderness. ABD: Abdomen is soft and largely nontender. He does have some pain in left groin while laying flat, no redness, warmth. BS x4 quadrants There is no guarding or rebound. Patient also examined while standing and painful bulge appears in L groin consistent with hernia. It is reducible while standing and also spontaneously resolves when laying flat. EXT: Full painless ROM of all extremities with no loss of sensation or strength. SKIN: Warm, pink, and dry. No erythema or rash Initial Vital Signs Initial Vital Signs: Vital Signs Temperature 98.7 F 06/18/20 21:03 Pulse Rate 60 06/18/20 21:03 Respiratory Rate 18 06/18/20 21:03 Blood Pressure 121/69 06/18/20 21:03 Pulse Oximetry 98 06/18/20 21:03 Course Vital Signs Vital signs: Vital Signs - 8 hr 06/18/20 21:03 Temperature 98.7 F Pulse Rate 60 Respiratory Rate 18 Blood Pressure 121/69 Pulse Oximetry 98 MDM - Abdominal Pain MDM Narrative Medical decision making narrative: History and physical most consistent with groin hernia. There is currently no evidence of incarceration. Return precautions given, and extensive discussion regarding avoidance of activities which raise intra-abdominal pressure. Discharge Plan Departure Patient Disposition: Home Clinical Impression: Inguinal hernia Qualifiers: Obstruction and gangrene presence: without obstruction or gangrene Laterality: unilateral Recurrence: non-recurrent Qualified Code(s): K40.90 - Unilateral inguinal hernia, without obstruction or gangrene, not specified as recurrent Instructions: DI for Groin Hernia Activity Restrictions/Additional Instructions: *You have been diagnosed with [left inguinal hernia, reducible] *What to do: *Take medications as directed: Stay well-hydrated, consider a diet high in fiber, uneven the possible addition of Metamucil or other bulk forming laxative to help avoid constipation. Avoid heavy lifting and other activities (likely discussed) that buildup pressure in your belly and make the hernia more likely to ?come out ? *Contact Dr. Delatorre with [facility]. Please call the office in the morning and let them know you were seen in the Emergency Department and we want you to be seen in follow up. *Return to ER if you should have any new, worsening or concerning symptoms, such as [the bulge not going back in with pressure or laying down, unrelenting pain, redness of the skin overlying it, vomiting, fever > 101F, inability to have bowel movement or other bothersome symptoms ] Prescriptions: No Action cyclobenzaprine 10 mg tablet 10 mg PO TID PRN (Reason: muscle spasm) Qty: 14 RF: 0 ondansetron 4 mg tablet,disintegrating 4 mg PO TID-QID PRN (Reason: nausea and vomiting) Qty: 10 RF: 0 hydrocodone-acetaminophen [[employer]] 5-325 mg tablet 1 tab PO Q6H PRN (Reason: pain) Qty: 10 RF: 0 Referrals: Nat Mccormick DO [Primary Care Provider] - Rico Delatorre MD [Physician] -
== END 2020-06-18 21:34 | disposition home or self-care (01) ==
PROVIDERS: Emergency Provider Emergency Medicine; PCP Family Medicine
DX: K40.90 Unilateral inguinal hernia, without obstruction or gangrene, not specified as recurrent (principal)
CPT/HCPCS: 99281

== ENCOUNTER → 2020-06-21 14:30 | Outpatient (CLI) | payer OTHER, MEDICAID, SELFPAY ==
[2020-06-21 14:45] LABS: Appearance Urine UA CLEAR; Bilirubin Urine UA NEGATIVE (NEGATIVE); Color Urine UA YELLOW; Glucose Urine UA NEGATIVE (Negative); Ketones Urine UA NEGATIVE (NEGATIVE); Leukocyte Esterase Urine UA NEGATIVE (NEGATIVE); Nitrite Urine UA NEGATIVE (Negative); Occult Blood Urine UA NEGATIVE (Negative); Protein Urine UA NEGATIVE (Negative); Urobilinogen Urine UA 0.2 E.U./dL (0.2)
== END ==
PROVIDERS: PCP Family Medicine; Referring Provider Surgery; Visit Provider Surgery
DX: R30.0 Dysuria (principal); K40.90 Unilateral inguinal hernia, without obstruction or gangrene, not specified as recurrent; R10.32 Left lower quadrant pain; F11.90 Opioid use, unspecified, uncomplicated; G89.29 Other chronic pain
CPT/HCPCS: 81003; 99214

== ENCOUNTER → 2020-06-25 10:22 | Outpatient (CLI) | payer OTHER, MEDICAID, SELFPAY ==
[2020-06-25 11:22] LABS: COVID19 -Nasal RAPID Negative (Negative)
== END ==
PROVIDERS: PCP Family Medicine; Visit Provider Surgery
DX: Z20.828 Contact with and (suspected) exposure to other viral communicable diseases (principal)
CPT/HCPCS: 87635

== ENCOUNTER → 2020-06-26 14:07 | Day surgery (SDC) | payer OTHER, MEDICAID, SELFPAY ==
[2020-06-25 15:01] VITALS: BMI 21.3
[2020-06-26 14:43] VITALS: BMI 21.3
--- NOTE | 2020-06-26 15:07 | SUR.PREOP ---
Pt in lobby drinking from bottle of water prior to coming back to pre-op. Upon questioning pt admitted that he had drank nearly an entire 16.9 ounce bottle of water since this morning. Anesthesia informed, surgery was cancelled for today as waiting 2 hours would put the start time after 1700 and therefore surgery needs to be rescheduled. Pt unhappy and stated he was told he was allowed to drink water. Had discussion with pt regarding the amount of water he could have and that all water drinking must be stopped a minimum of 2 hours prior to surgery check-in. Pt stated understanding. No IV start was performed.
== END ==
PROVIDERS: PCP Family Medicine; Referring Provider Surgery; Visit Provider Surgery

== ENCOUNTER 2020-06-27 13:09 | Day surgery (SDC) | payer OTHER, MEDICAID, SELFPAY ==
[2020-06-27] VITALS (9 sets, daily range): BP systolic 100–115; BP diastolic 53–69; PULSE 52–74; RESP 14–20; TEMP 36.4–36.8; O2SAT 95–99; BMI 46.1
--- NOTE | 2020-06-27 | PATH_ITS ---
[facility] Accession Number: [id number] . 01 Material submitted: . PART A: hernia - HERNIA SAC PART B: spermatic cord - SPERMATIC CORD LIPOMA . 01 Diagnosis: A. Hernia Sac, Excision: Fibromembranous and adipose tissue, consistent with hernia sac contents. . B. Spermatic Cord Lipoma, Excision: Mature adipose tissue, consistent with lipoma. MRV 07/01/2020 1136 Local . 01 Electronically signed: . Francesca Parker MD, Pathologist NPI- [id number] . 01 Gross description: . A. Received in formalin, labeled with the patient's name and hernia sac, is a 1.0 gram, 2.2 x 1.0 x 0.5 cm fragment of pink and yellow-akers fibrous soft tissue visually consistent with a hernia sac, no lesions identified; teleservices representative sections are submitted. . Summary of sections: A1. Three pieces. . B. Received in formalin, labeled with the patient's name and spermatic cord lipoma, is a 0.3 gram, 3.1 x 1.5 x 0.6 cm fragment of partially encapsulated yellow-akers adipose tissue, outer surface inked blue, sectioned to reveal homogeneous yellow-akers fatty cut surface without hemorrhage or softening. Equine Manager sections are submitted. . Summary of sections: B1. Three pieces. ([id number]) /MRV 06/28/2020 1439 Local . 01 Pathologist provided ICD-10: K40.90, D17.9 . 01 CPT . 125629, 602514 Performed at: [address], [place], [place] [id number] MD Titus Ghosh MD Phone: [phone]
[2020-06-27] MEDS: LACTATED RINGERS 1,000 ML 100 ML IV (13:41)
--- NOTE | 2020-06-27 14:03 | PM.PREOP ---
Pre-operative Note COVID-19 COVID-19 status: Negative Result date/Date tested (Pos, Neg/Pending): 06/25/20 Interval Note History & Physical reviewed/Exam performed by Physician: Yes Changes to H&P: No
[2020-06-27] MEDS: CLINDAMYCIN 900 MG/50 ML PIGGYBACK 50 MG IV (14:30)
--- NOTE | 2020-06-27 14:47 | SUR.OPER ---
Supine on padded OR bed, head on pillow, arms secured on padded arm boards at <90 degrees abduction, legs uncrossed, safety belt at thigh, tape over blanket over lower legs.
[2020-06-27] MEDS: BUPIVACAINE LIPOSOME 266 MG/20 ML VIAL INJ (14:56)
[2020-06-27] MEDS: BUPIVACAINE 0.25% W/ EPI (PF) 10 ML VIAL 30 ML INJ ×2 (14:57→15:23)
--- NOTE | 2020-06-27 15:55 | P.OP_ITS ---
Operative Date/Time/Diagnoses Date of procedure: 06/27/20 Time of procedure: 15:55 Pre-op diagnosis: Left inguinal hernia Post-op diagnosis: same (Indirect left inguinal hernia with spermatic cord lipoma) Procedure & Clinicians Procedure: Open repair of indirect left inguinal hernia with removal of spermatic cord lipoma Same procedure as scheduled: Yes Indications: left inguinal hernia, left groin pain Surgeon: Shoshana Bhatti Yes if Unassisted: Yes Anesthesia Type: General Operative Notes Findings: Left indirect hernia sac adherent to spermatic cord structures; left spermatic cord lipoma Specimen(s): other (hernia sac, spermatic cord lipoma) Prosthetic devices, grafts, tissues, transplants, or devices: BARD macroporous polypropelene mesh Estimated Blood Loss (mL): 2 Procedure in detail: The patient was brought into the OR, placed supine on the OR table, and appropriate preoperative antibiotics were given. Sequential compression devices were placed on both legs and turned on. General anesthesia was induced and the patient was intubated with an LMA by the anesthesiologist. The left lower abdomen and groin were prepped and draped in sterile fashion for inguinal incision. A surgical time out was conducted. Local anesthetic was inf iltrated into the skin and a 15 blade was used to make an oblique 10cm incision two finger breadths superior to the inguinal ligament. Dissection was carried down to through the subcutaneous fat and gorge's fascia. Dissection was carried down to the aponeurosis of the external oblique. Using a fresh 15 blade, I opened the aponeurosis after giving generous local anesthetic. There was a moderate indirect inguinal hernia, with a hernia sac scarred onto the spermatic cord and an associated spermatic cord lipoma coming through the indirect defect. I then gave local anesthetic in the inguinal canal floor, pubic tubercle, and conjoint tendon, using a total of 40mL of 0.25% Marcaine with Epi. I also infiltrated the area superior to Poupart's ligament with 20mL Exparel in small aliquots. I dissected the indirect hernia sac free from the spermatic cord, and did a high ligation of the sac. I removed the excess sac and passed it off the field. I dissected the spermatic cord lipoma free from the cord and suture ligated it, passing it off the field as well. The stump of the spermatic cord lipoma and the stump of the hernia sac were dropped back into the abdomen through the indirect defect. A BARD macroporous inguinal hernia mesh was then brought into the field and shaped to fit the groin. I secured it to the ligaments overlying the pubic tubercle with 2cm overlap, and then secured it to the inguinal ligament inferiorly and the conjoint tendon superiorly with 2-0 PDS suture. I made an opening in the mesh to accommodate the spermatic cord, ensuring it was appropriately sized to avoid strangulation of the cord. Once the mesh was secure, I closed the external oblique aponeurosis with 3-0 Vicryl. I closed the Gorge's fascia with 3-0 Vicryl. The remaining local anesthetic was given in the skin and soft tissue. The skin was closed with running 4-0 Monocryl subcuticular stitch. The skin edges were sealed with Dermabond. The patient was awakened from anesthesia and extubated. He tolerated the procedure well. Needle, sponge and instrument counts were correct x 2. The patient was transferred to PACU in stable condition. Complications: none Post-operative Condition: stable Disposition: PACU
[2020-06-27] MEDS: KETOROLAC 30 MG/ML VIAL IV (16:17)
--- NOTE | 2020-06-27 16:18 | SUR.PHASEI ---
KETOROLAC GIVEN AT THIS TIME ANESTHESIA FORGOT TO GIVE IT IN THE OR. PT. STILL SLEEPING.
[2020-06-27] MEDS: OXYCODONE/ACETAMINOPHEN 5/325 TABLET 1 TAB PO ×2 (16:43→17:06)
== END 2020-06-27 17:19 | disposition home or self-care (01) ==
PROVIDERS: PCP Family Medicine; Referring Provider Surgery; Visit Provider Surgery
PROC: (CPT 49505; principal; 2020-06-27 14:15)
DX: K40.90 Unilateral inguinal hernia, without obstruction or gangrene, not specified as recurrent (principal); D17.6 Benign lipomatous neoplasm of spermatic cord; F17.210 Nicotine dependence, cigarettes, uncomplicated; G89.29 Other chronic pain; F11.90 Opioid use, unspecified, uncomplicated
CPT/HCPCS: 49505; 82962; C1781; C9290; J1100; J1885; J2250; J2405; J2704; J3010

== ENCOUNTER → 2020-09-27 10:29 | Outpatient (CLI) | payer OTHER, MEDICAID, SELFPAY ==
[2020-09-27 12:18] LABS: COVID19 -Nasal RAPID Negative (Negative)
== END ==
PROVIDERS: PCP Family Medicine; Visit Provider Surgery
DX: Z20.822 Contact with and (suspected) exposure to COVID-19 (principal)
CPT/HCPCS: 87635; C9803

== ENCOUNTER 2020-09-30 11:11 | Day surgery (SDC) | payer OTHER, MEDICAID, SELFPAY ==
[2020-09-30] VITALS (15 sets, daily range): BP systolic 89–128; BP diastolic 40–71; PULSE 50–60; RESP 12–18; TEMP 36.5–37.1; O2SAT 90–99; BMI 21.5
--- NOTE | 2020-09-30 | PATH_ITS ---
[facility] Accession Number: [id number] . 01 Material submitted: . PART A: hernia - RIGHT INGUINAL HERNIA SAC PART B: spermatic cord - RIGHT SPERMATIC CORD LIPOMA . 02 Diagnosis: A. Right Inguinal Hernia Sac, Hernia Repair: Portions of fibroconnective tissue with patchy areas of mesothelial lining, consistent with hernia sac. Negative for atypia or malignancy. . B. Right Spermatic Cord Lipoma, Hernia Repair: Portion of mature fibroadipose and fibrovascular tissue, consistent with cord lipoma (3.0 x 2.0 x 1.2 cm). MRV 10/03/2020 0937 Local . 02 Electronically signed: . Julia Kovacs MD, Pathologist NPI- [id number] . 01 Gross description: . A. The specimen is received in formalin, labeled right hernia sac and consists of a 2.0 x 1.0 x 0.8 cm akers-pink fibromembranous fragment of soft tissue which is bisected and entirely submitted in cassette A1. B. The specimen is received in formalin, labeled right spermatic cord lipoma and consists of a 3.0 x 2.0 x 1.2 cm akers-yellow fragment of adipose tissue which is inked blue and sectioned to reveal akers-yellow, lobulated cut surfaces. The specimen is entirely submitted in cassettes B1-B4. ([id number]) /MRV 10/02/2020 1504 Local . 02 Pathologist provided ICD-10: K40.90 . 02 CPT . 988045, 269762 Performed at: [address], [place], [place] [id number] MD Titus Ghosh MD Phone: [phone] Performed at: 02 [facility] [address] [place] [id number] MD Susanna Starr MD Phone: [phone]
[2020-09-30] MEDS: LACTATED RINGERS 1,000 ML 42 ML IV (12:30)
--- NOTE | 2020-09-30 12:33 | PM.PREOP ---
Pre-operative Note COVID-19 COVID-19 status: Negative Result date/Date tested (Pos, Neg/Pending): 09/27/20 Interval Note History & Physical reviewed/Exam performed by Physician: Yes Changes to H&P: No
[2020-09-30] MEDS: CLINDAMYCIN 900 MG/50 ML PIGGYBACK 50 MG IV (12:42)
[2020-09-30] MEDS: BUPIVACAINE 0.25% W/ EPI (PF) 10 ML VIAL 30 ML INJ (13:06)
[2020-09-30] MEDS: BUPIVACAINE LIPOSOME 266 MG/20 ML VIAL INJ (13:07)
--- NOTE | 2020-09-30 14:21 | P.OP_ITS ---
Procedure & Clinicians Procedure: Open right inguinal hernia repair, removal of spermatic cord lipoma Same procedure as scheduled: Yes Indications: Symptomatic right inguinal hernia Surgeon: Shoshana Irizarry Click Yes if Unassisted: Yes Anesthesia Type: General Operative Notes Findings: Indirect right inguinal hernia with spermatic cord lipoma Specimen(s): other (Spermatic cord lipoma, hernias) Estimated Blood Loss (mL): 2 Procedure in detail: The patient was brought into the OR, placed supine on the OR table, and appropriate preoperative antibiotics were given. Sequential compression devices were placed on both legs and turned on. General anesthesia was induced and the patient was intubated with an LMA by the anesthesiologist. The right lower abdomen and groin were prepped and draped in sterile fashion for inguinal incision. A surgical time out was conducted. Local anesthetic was infiltrated into the skin and a 15 blade was used to make an oblique 10cm incision two finger breadths superior to the inguinal ligament. Dissection was carried down to through the subcutaneous fat and gorge's fascia. Dissection was carried down to the aponeurosis of the external oblique. Using a fresh 15 blade, I opened the aponeurosis after giving generous local anesthetic. There was a moderate indirect inguinal hernia, with an associated spermatic cord lipoma. I dissected the cord lipoma free from the cord and suture ligated it, passing it off the field. I dissected the hernia sac off of the spermatic cord, and suture ligated it with a 3-0 Vicryl. I divided the hernia sac and passed off the field. The stumps of the spermatic cord lipoma and hernia sac were dropped back into the abdomen through the indirect defect. 20 mL of Exparel, and a total of 30 mL of 0.25% Marcaine with epi were used for the entire pr ocedure. The Exparel was infiltrated in the conjoint tendon, and pubic tubercle, avoiding the inguinal ligament shelving edge, and below. A BARD macroporous inguinal hernia mesh was then brought into the field and shaped to fit the groin. I secured it to the ligaments overlying the pubic tubercle with 2cm overlap, and then secured it to the inguinal ligament inferiorly and the conjoint tendon superiorly with 2-0 PDS suture. I made an opening in the mesh to accommodate the spermatic cord, ensuring it was appropriately sized to avoid strangulation of the cord. Once the mesh was secure, I closed the external oblique aponeurosis with 3-0 Vicryl. I closed the Gorge's fascia with 3-0 Vicryl. The remaining local anesthetic was given in the skin and soft tissue. The skin was closed with running 4-0 Monocryl subcuticular stitch. The skin edges were sealed with Dermabond. The patient was awakened from anesthesia and extubated. He tolerated the procedure well. Needle, sponge and instrument counts were correct x 2. The patient was transferred to PACU in stable condition. Complications: none Post-operative Condition: stable Disposition: PACU
[2020-09-30] MEDS: fentaNYL 100 MCG/2 ML INJ IV (14:25)
[2020-09-30] MEDS: OXYCODONE/ACETAMINOPHEN 5/325 TABLET 1 TAB PO ×2 (14:29→15:04)
== END 2020-09-30 15:20 | disposition home or self-care (01) ==
PROVIDERS: Referring Provider Surgery; Visit Provider Surgery
PROC: (CPT 49505; principal; 2020-09-30 12:45)
DX: K40.90 Unilateral inguinal hernia, without obstruction or gangrene, not specified as recurrent (principal); D17.6 Benign lipomatous neoplasm of spermatic cord; F41.9 Anxiety disorder, unspecified; F43.10 Post-traumatic stress disorder, unspecified; F17.210 Nicotine dependence, cigarettes, uncomplicated; G89.29 Other chronic pain; G62.9 Polyneuropathy, unspecified
CPT/HCPCS: 49505; 82962; C1781; C9290; J1100; J2250; J2405; J2704; J3010

== ENCOUNTER 2020-10-07 09:28 | Emergency (ER) | payer OTHER, MEDICAID, SELFPAY ==
[2020-10-07] VITALS (9 sets, daily range): BP systolic 120–141; BP diastolic 58–87; PULSE 45–60; RESP 14–22; TEMP 36.8; O2SAT 96–99; BMI 22.0
[2020-10-07 10:05] LABS: Add Manual Diff / Slide Review NO; Basophils Absolute Auto 0 /uL (0-100); Basophils Percent Auto 0.3 % (0-2); Eosinophils Absolute Auto 200 /uL (0-450); Eosinophils Percent Auto 1.7 % (2-4); Hematocrit 40.2 % (41-53); Hemoglobin 13.7 g/dL (13.5-17.5); Lymphocytes Absolute Auto 2900 /uL (1100-4500); Lymphocytes Percent Auto 28.6 % (25-40); Mean Corpuscular HGB Conc 34.1 % (30-36); Mean Corpuscular Hemoglobin 32.4 PG (26-34); Monocytes Absolute Auto 400 /uL (0-900); Monocytes Percent Auto 4.4 % (3-14); Neutrophils Absolute Auto 6600 /uL (1500-7000); Platelet Count 465 X10^3/uL (150-400); Red Blood Cell Count 4.23 X10^6/uL (4.5-5.9); Red Cell Distribution Width 12.9 % (11.6-14.8); White Blood Cell Count 10.2 X10^3/uL (4.5-11.0)
--- NOTE | 2020-10-07 10:08 | DI.CT.S_ITS ---
PROCEDURE: CT ABDOMEN PELVIS W CON INDICATIONS: right lower quad pain after hernia repair TECHNIQUE: After the administration of intravenous contrast, 5 mm thick sections acquired from the diaphragm to the symphysis. 5 mm coronal and sagittal reformats were acquired. For radiation dose reduction, the following was used: automated exposure control, adjustment of mA and/or kV according to patient size. COMPARISON: [facility], CT, CT CHEST ABD PEL W CON, 11/15/2019, 20:08. [facility], RG, CT ABDOMEN/PELVIS WITH CONTRAST, 08/03/2020, 9:26. FINDINGS: Image quality: Excellent. ABDOMEN: Lung bases: Lung bases are clear. Heart size is normal. Solid organs: Liver is normal in size and enhancement. Gallbladder wall is not thickened. Biliary system is non dilated. Pancreas enhances normally. Spleen is normal in size and enhancement. No adrenal nodules. Kidneys demonstrate normal size and enhancement, without hydronephrosis. Peritoneum and bowel: Bowel loops demonstrate normal wall thickness and caliber. No free fluid or air. No appendix is seen. Nodes and vessels: No retroperitoneal or mesenteric adenopathy by size criteria. Aorta and inferior vena cava are normal in size. Miscellaneous: A mild periumbilical hernia is seen, containing fat. PELVIS: Genitourinary: Bladder wall thickness is normal. Miscellaneous: In this patient with this given history, scrutiny is given to the right groin. No significant abnormality is seen. No inguinal hernias or adenopathy. Bones: No suspicious bony lesions. No vertebral body compression fractures. Mild levoconvex scoliotic curvature is noted. Degenerative changes are seen, which are worst at the L5-S1 level. IMPRESSION: No significant right groin abnormality can be seen. Prior appendectomy. Incidental note is made of: Fat containing periumbilical hernia Levoconvex scoliotic curvature Focal L5-S1 degenerative change Dictated by: Fady Muhammad M.D. on 10/07/2020 at 9:30 Approved by: Fady Muhammad M.D. on 10/07/2020 at 9:34
[2020-10-07 10:11] LABS: Prothrombin Time 11.4 SECONDS (10.1-12.7)
[2020-10-07 10:13] LABS: PTT Partial Thromboplastin Tim 36 SECONDS (26.4-36.2)
[2020-10-07 10:16] LABS: Alanine Aminotransferase 22 IU/L (<50); Albumin 4.5 g/dL (3.5-5.0); Albumin Globulin Ratio 1.8 (1.0-2.8); Alkaline Phosphatase 44 U/L (38-126); Aspartate Aminotransferase 23 IU/L (17-59); BUN Creatinine Ratio 24.5 (6-22); Bilirubin Total 0.4 mg/dL (0.2-1.3); Blood Urea Nitrogen 13 mg/dL (9-20); Carbon Dioxide 23 mmol/L (22-32); Chloride 107 mmol/L (98-107); Estimated Glomerular Filt Rate > 60.0 mL/min (>60); Globulin 2.5 g/dL (1.7-4.1); Glucose 112 mg/dL (70-100); HEMOLYSIS < 15 (0-50); Lipase 90 U/L (23-300); Potassium 4.1 mmol/L (3.4-5.1); Sodium 138 mmol/L (137-145)
[2020-10-07] MEDS: KETOROLAC 60 MG/2 ML VIAL 15 MG IV (10:21)
--- NOTE | 2020-10-07 10:34 | ED_ITS ---
HPI - Abdominal Pain General Chief Complaint: Abdominal Pain Stated Complaint: post hernia mesh, abd pain Time Seen by Provider: 10/07/20 09:44 Source: patient Mode of arrival: Ambulatory Limitations: no limitations History of Present Illness HPI narrative: PATIENT IS A 40-YEAR-OLD MALE WITH HISTORY OF RECENT RIGHT INGUINAL HERNIA REPAIR LAST WEEK AND COLITIS PRESENTING TODAY WITH WORSENING RIGHT LOWER QUADRANT PAIN. HE IS TENDER OVER THE INCISION SITE ALSO SUPERIORLY. HE IS WORRIED THERE IS INFECTION HE HAS BEEN CHILLED but denies any fever. He denies any nausea or vomiting he has been taking his pain medications and he says he feels like it is helping but is still having pain. It has progressively gotten worse over the last few days MD complaint: abdominal pain Onset (ago): day(s) Pain Consistency: constant Location: RLQ Severity: moderate Quality: sharp Related Data Home Medications Medication Instructions Recorded Confirmed acetaminophen 325 mg capsule 650 mg PO Q6H PRN 06/21/20 09/30/20 ibuprofen 400 mg tablet 400 mg PO Q8H PRN 06/21/20 09/30/20 lamotrigine 100 mg tablet 100 mg PO DAILY 06/21/20 09/30/20 methocarbamol 750 mg tablet 750 mg PO BEDTIME 06/21/20 09/30/20 prazosin 2 mg capsule 2 mg PO BEDTIME 06/21/20 09/30/20 cetirizine 10 mg PO BID PRN 06/26/20 09/30/20 gabapentin 600 mg PO TID 06/26/20 09/30/20 methylphenidate HCl [Ritalin] 10 mg PO BID 09/30/20 09/30/20 Previous Rx's Medication Instructions Recorded hydrocodone-acetaminophen [[place]] 1 tab PO Q6H PRN #10 tab 11/16/19 docusate sodium 100 mg PO BID #20 cap 06/27/20 docusate sodium 100 mg PO BID #20 cap 09/30/20 oxycodone 5 mg PO Q6H PRN #30 tab 09/30/20 Allergies Allergy/AdvReac Type Severity Reaction Status Date / Time amoxicillin Allergy Severe Anaphylaxis Verified 10/07/20 09:47 amitriptyline AdvReac Severe Agitated Verified 10/07/20 09:47 diphenhydramine AdvReac Severe Agitated Verified 10/07/20 09:47 [From Benadryl] haloperidol [From Haldol] AdvReac Severe Agitated Verified 10/07/20 09:47 Review of Systems Review of Systems Narrative: GENERAL: Denies chills, fatigue, malaise, fever, sweats, travel HEENT: Denies sinus pain, ear pain, sore throat, difficulty swallowing, neck pain RESPIRATORY: Denies dyspnea, cough, wheezing, hemoptysis, sputum. CARDIOVASCULAR: Denies chest pain, palpitations, orthopnea, edema GASTROINTESTINAL: See HPI : Denies dysuria, frequency, incontinence, hematuria, urinary retention, flank pain. MUSCULOSKELETAL: Denies weakness, joint pain, or bony pain SKIN: No rash, no erythema, no pruritus NEUROLOGIC: Denies weakness, dizziness, headache, numbness, change in speech, confusion PSYCHIATRIC: No concerning psychosocial issues. 12 point review of systems is negative except for those stated above and HPI Patient History Medical History Anxiety Chronic pain Compression fracture Depression Head injury Neuropathy PTSD (post-traumatic stress disorder) Surgical History History of appendectomy Social History marital status: household members: spouse occupational status: disabled Smoking Status: Current every day smoker alcohol intake: former substance use type: marijuana Smoking Status: Current every day smoker tobacco type: cigarettes alcohol intake frequency: 0-2 drinks per day Substance Use Type: marijuana Exam Initial Vital Signs Initial Vital Signs: Vital Signs Temperature 98.3 F 10/07/20 09:44 Pulse Rate 60 10/07/20 09:44 Respiratory Rate 14 10/07/20 09:44 Blood Pressure 141/87 H 10/07/20 09:44 Pulse Oximetry 99 10/07/20 09:44 GENERAL: Well-appearing, well-nourished and in no acute distress. HEENT: Head atraumatic,EOMI, pupils reactive, face symmetric, moist mucous membranes CARDIOVASCULAR: Regular rate and rhythm without murmurs, rubs or gallops. RESPIRATORY: Breath sounds equal bilaterally, no wheezes rales or rhonchi. ABDOMEN: Soft, tender suprapubic and right lower quadrant area incision site overall appears well no erythema my this swelling noted no drainage EXTREMITIES: Normal range of motion, no clubbing or edema. Neurovascularly intact NEUROLOGICAL: Alert and oriented x4.Normal gait and speech. SKIN: Warm, dry, no laceration, no petechiae, no rashes or lesions. Course Orders Ordered: ED Orders 10/07/20 09:50 Complete Blood Count AUTO DIFF Stat Comprehensive Metabolic Panel Stat Lipase Stat Partial Thromboplastin Time Stat Prothrombin Time INR Stat 10/07/20 10:08 CT abdomen pelvis w con Stat Discontinued Medications Ketorolac Tromethamine (Ketorolac 60 Mg/2 Ml Vial) 15 mg IV NOW ONE Stop: 10/07/20 10:09 Last Admin: 10/07/20 10: Dose: 15 mg Documented by: KWESI Morphine Sulfate (Morphine 4 Mg/Ml Inj) 4 mg IV NOW ONE Stop: 10/07/20 12:09 Last Admin: 10/07/20 12:26 Dose: 4 mg Documented by: IVONNE Vital Signs Vital signs: Vital Signs - 8 hr 10/07/20 09:44 10/07/20 10:21 10/07/20 10:22 Temperature 98.3 F Pulse Rate 60 51 L 49 L Respiratory Rate 14 Blood Pressure 141/87 H 129/66 Pulse Oximetry 99 99 99 10/07/20 10:30 10/07/20 11:00 10/07/20 11:30 Temperature Pulse Rate 50 L 45 L 45 L Respiratory Rate 14 18 18 Blood Pressure 120/68 121/70 123/69 Pulse Oximetry 98 96 97 10/07/20 12:00 10/07/20 12:30 10/07/20 12:31 Temperature Pulse Rate 48 L 55 L 52 L Respiratory Rate 17 22 19 Blood Pressure 124/64 125/58 L Pulse Oximetry 96 96 96 MDM - Abdominal Pain Lab Data Attestation: I reviewed the patient's lab results. Result diagrams: 10/07/20 09:50 10/07/20 09:50 Labs: Lab Results 10/07/20 10/07/20 10/07/20 Range/Units 09:50 09:50 09:50 WBC 10.2 (4.5-11.0) X10^3/uL RBC 4.23 L (4.5-5.9) X10^6/uL Hgb 13.7 (13.5-17.5) g/dL Hct 40.2 L (41-53) % MCV 95.0 (80-100) fL MCH 32.4 (26-34) PG MCHC 34.1 (30-36) % RDW 12.9 (11.6-14.8) % Plt Count 465 H (150-400) X10^3/uL Neut % (Auto) 65.0 (50-75) % Lymph % (Auto) 28.6 (25-40) % Kings % (Auto) 4.4 (3-14) % Eos % (Auto) 1.7 L (2-4) % Baso % (Auto) 0.3 (0-2) % Neut # (Auto) 6600 (3890-5475) /uL Lymph # (Auto) 2900 (8095-2789) /uL Kings # (Auto) 400 (0-900) /uL Eos # (Auto) 200 (0-450) /uL Baso # (Auto) 0 (0-100) /uL PT 11.4 (10.1-12.7) SECONDS INR 1.0 (0.9-1.3) APTT 36 (26.4-36.2) SECONDS Sodium 138 (137-145) mmol/L Potassium 4.1 (3.4-5.1) mmol/L Chloride 107 (98-107) mmol/L Carbon Dioxide 23 (22-32) mmol/L BUN 13 (9-20) mg/dL Creatinine 0.53 L (0.66-1.25) mg/dL Estimated GFR > 60.0 (>60) mL/min BUN/Creatinine Ratio 24.5 H (6-22) Glucose 112 H (70-100) mg/dL Calcium 10.0 (8.4-10.2) mg/dL Total Bilirubin 0.4 (0.2-1.3) mg/dL AST 23 (17-59) IU/L ALT 22 (<50) IU/L Alkaline Phosphatase 44 (38-126) U/L Total Protein 7.0 (6.3-8.2) g/dL Albumin 4.5 (3.5-5.0) g/dL Globulin 2.5 (1.7-4.1) g/dL Albumin/Globulin Ratio 1.8 (1.0-2.8) Lipase 90 (23-300) U/L Point of care testing: Urine Dip Bedside Urine Glucose Negative Bedside Urine Bilirubin - Negative Bedside Urine Ketone - Negative Urine Specific Bim 1.01 Bedside Urine Occult Blood - Negative Bedside Urine pH 7.5 Bedside Urine Protein - Negative Bedside Urine Urobilinogen - Negative Bedside Urine Nitrite - Negative Bedside Urine Leukocytes - Negative Esterase Imaging Data CT scan - abdomen/pelvis: Radiologist's Impression: PROCEDURE: CT ABDOMEN PELVIS W CON INDICATIONS: right lower quad pain after hernia repair TECHNIQUE: After the administration of intravenous contrast, 5 mm thick sections acquired from the diaphragm to the symphysis. 5 mm coronal and sagittal reformats were acquired. For radiation dose reduction, the following was used: automated exposure control, adjustment of mA and/or kV according to patient size. COMPARISON: [facility], CT, CT CHEST ABD PEL W CON, 11/15/2019, 20:08. [facility], RG, CT ABDOMEN/PELVIS WITH CONTRAST, 08/03/2020, 9:26. FINDINGS: Image quality: Excellent. ABDOMEN: Lung bases: Lung bases are clear. Heart size is normal. Solid organs: Liver is normal in size and enhancement. Gallbladder wall is not thickened. Biliary system is non dilated. Pancreas enhances normally. Spleen is normal in size and enhancement. No adrenal nodules. Kidneys demonstrate normal size and enhancement, without hydronephrosis. Peritoneum and bowel: Bowel loops demonstrate normal wall thickness and c aliber. No free fluid or air. No appendix is seen. Nodes and vessels: No retroperitoneal or mesenteric adenopathy by size criteria. Aorta and inferior vena cava are normal in size. Miscellaneous: A mild periumbilical hernia is seen, containing fat. PELVIS: Genitourinary: Bladder wall thickness is normal. Miscellaneous: In this patient with this given history, scrutiny is given to the right groin. No significant abnormality is seen. No inguinal hernias or adenopathy. Bones: No suspicious bony lesions. No vertebral body compression fractures. Mild levoconvex scoliotic curvature is noted. Degenerative changes are seen, which are worst at the L5-S1 level. IMPRESSION: No significant right groin abnormality can be seen. Prior appendectomy. Incidental note is made of: Fat containing periumbilical hernia Levoconvex scoliotic curvature Focal L5-S1 degenerative change Dictated by: Fady Muhammad M.D. on 10/07/2020 at 9:30 MDM Narrative Medical decision making narrative: Patient's incision overall appears well he is tender around and suprapubically blood work is reassuring CT does not show any abnormality Adjust time discussion with Dr. Etienne on-call surgery agrees with outpatient follow-up with surgeon as scheduled. Patient is requesting more pain medicine after Toradol. He has had multiple pain scripts filled he is given morphine to help with pain however he will need to talk with his surgeon or PCP in regards to further pain management Discharge Plan Departure Patient Disposition: Home Clinical Impression: Postoperative abdominal pain Instructions: DI for Abdominal Pain-Adult Activity Restrictions/Additional Instructions: *You have been diagnosed with postoperative abdominal pain *What to do: Try icing the area 20-30 minutes at a time to see if it helps. At this time no antibiotics indicated CT does not show any abnormalities. If your needing more pain medications please see your primary care provider or your surgeon *Continue to take medications as directed *Follow up with your primary care provider in 2-3 days *Return to ER if you should have increasing pain, fever, redness, pus, swelling or any new, worsening or concerning symptoms Prescriptions: No Action methocarbamol 750 mg tablet 750 mg PO BEDTIME RF: 0 ibuprofen 400 mg tablet 400 mg PO Q8H PRN (Reason: Pain) RF: 0 acetaminophen [Tylenol] 325 mg capsule 650 mg PO Q6H PRN (Reason: Pain) RF: 0 lamotrigine [Lamictal] 100 mg tablet 100 mg PO DAILY RF: 0 prazosin 2 mg capsule 2 mg PO BEDTIME RF: 0 docusate sodium 100 mg capsule 100 mg PO BID Qty: 20 RF: 0 methylphenidate HCl [Ritalin] 10 mg Tablet 10 mg PO BID RF: 0 oxycodone 5 mg tablet 5 mg PO Q6H PRN (Reason: post operative pain) Qty: 30 RF: 0 docusate sodium 100 mg capsule 100 mg PO BID Qty: 20 RF: 0 hydrocodone-acetaminophen [[place]] 5-325 mg tablet 1 tab PO Q6H PRN (Reason: pain) Qty: 10 RF: 0 gabapentin 600 mg tablet 600 mg PO TID RF: 0 cetirizine 10 mg tablet 10 mg PO BID PRN (Reason: Allergy Symptoms) RF: 0 Referrals: Shoshana Irizarry MD [Physician] -
[2020-10-07] MEDS: MORPHINE 4 MG/ML INJ IV (12:26)
== END 2020-10-07 12:51 | disposition home or self-care (01) ==
PROVIDERS: Emergency Medicine; Emergency Provider Emergency Medicine
DX: G89.18 Other acute postprocedural pain (principal); R10.9 Unspecified abdominal pain
CPT/HCPCS: 36415; 74177; 80053; 81003; 83690; 85025; 85610; 85730; 96374; 96375; 99284; J1885; J2270; Q9967

== ENCOUNTER 2020-10-25 12:39 | Emergency (ER) | payer OTHER, MEDICAID, SELFPAY ==
[2020-10-25 12:51] VITALS: BP 142/68; PULSE 56; RESP 16; TEMP 37.4; O2SAT 99; BMI 21.6
--- NOTE | 2020-10-25 15:03 | ED_ITS ---
HPI - General Adult General Chief complaint: Abdominal Pain Stated complaint: abdominal pain, due to a hernia surgery month ago Time Seen by Provider: 10/25/20 14:45 Source: patient Mode of arrival: Ambulatory Limitations: no limitations History of Present Illness HPI narrative: Patient is a 40-year-old male who several months ago had a left inguinal hernia repair. He did have some discomfort afterwards. One month ago he had a right inguinal hernia repair. He has not followed up with his surgeon since then. He states ?I think I missed that appointment ?he has not rescheduled a follow-up appointment as of yet. He has been here in the emergency department just recently for pain in his right inguinal area. He had a CT scan at the time which showed no acute pathology. He returns today for continued discomfort. Related Data Home Medications Medication Instructions Recorded Confirmed acetaminophen 325 mg capsule 650 mg PO Q6H PRN 06/21/20 09/30/20 ibuprofen 400 mg tablet 400 mg PO Q8H PRN 06/21/20 09/30/20 lamotrigine 100 mg tablet 100 mg PO DAILY 06/21/20 09/30/20 methocarbamol 750 mg tablet 750 mg PO BEDTIME 06/21/20 09/30/20 prazosin 2 mg capsule 2 mg PO BEDTIME 06/21/20 09/30/20 cetirizine 10 mg PO BID PRN 06/26/20 09/30/20 gabapentin 600 mg PO TID 06/26/20 09/30/20 methylphenidate HCl [Ritalin] 10 mg PO BID 09/30/20 09/30/20 Previous Rx's Medication Instructions Recorded hydrocodone-acetaminophen [[place]] 1 tab PO Q6H PRN #10 tab 11/16/19 docusate sodium 100 mg PO BID #20 cap 06/27/20 docusate sodium 100 mg PO BID #20 cap 09/30/20 oxycodone 5 mg PO Q6H PRN #30 tab 09/30/20 Allergies Allergy/AdvReac Type Severity Reaction Status Date / Time amoxicillin Allergy Severe Anaphylaxis Verified 10/07/20 09:47 amitriptyline AdvReac Severe Agitated Verified 10/07/20 09:47 diphenhydramine AdvReac Severe Agitated Verified 10/07/20 09:47 [From Benadryl] haloperidol [From Haldol] AdvReac Severe Agitated Verified 10/07/20 09:47 Review of Systems Constitutional Constitutional: Denies fatigue and Denies fever(s) Cardiovascular Cardiovascular: Denies chest pain and Denies dyspnea Respiratory Respiratory: Denies dyspnea Gastrointestinal Gastrointestinal: Reports abdominal pain, Denies change in bowel habits, Denies nausea and Denies vomiting Genitourinary Genitourinary: Denies dysuria and Denies testicular pain Genitourinary: Denies dysuria Musculoskeletal Musculoskeletal: Denies arthralgias and Denies myalgias Integumentary/Breasts Skin/Breast: Denies rash Neurologic Neurologic: Denies behavioral changes Psychiatric Psychiatric: Denies behavioral changes Endocrine Endocrine: Denies fatigue Hematologic/Lymphatic On Anticoagulants: No Allergic/Immunologic Allergic/Immunologic: Denies urticaria Patient History Medical History Anxiety Chronic pain Compression fracture Depression Head injury Neuropathy PTSD (post-traumatic stress disorder) Surgical History History of appendectomy Social History marital status: household members: spouse occupational status: disabled Smoking Status: Current every day smoker alcohol intake: former substance use type: marijuana Smoking Status: Current every day smoker tobacco type: cigarettes alcohol intake frequency: 0-2 drinks per day Substance Use Type: marijuana Exam Initial Vital Signs Initial Vital Signs: Vital Signs Temperature 99.3 F 10/25/20 12:51 Pulse Rate 56 L 10/25/20 12:51 Respiratory Rate 16 10/25/20 12:51 Blood Pressure 142/68 H 10/25/20 12:51 Pulse Oximetry 99 10/25/20 12:51 Const General: cooperative and comfortable Limitations: mental status not altered HENMT Head: normal to inspection and normocephalic Eyes General: appearance normal, both eyes and all related structures Resp Effort & Inspection: normal respiratory effort Cardio Rate: bradycardic GI Inspection: non-distended Palpation: soft, No firm and No tender External: circumcised Penis: normal penis Meatus: meatus normal Skin Other: Well-healed surgical scar right inguinal area consistent with stated history. Neuro General: patient alert and patient awake Cognition: normal cognition Speech: speech normal Extrem General: normal to inspection and capillary refill normal Psych Appearance: grossly normal and well kempt Course Orders Ordered: Discontinued Medications Hydrocodone Bitart/Acetaminophen (Hydrocodone/Acet 5/325 Tablet) 1 tab PO NOW ONE Stop: 10/25/20 15:05 Last Admin: 10/25/20 15:28 Dose: 1 tab Documented by: DONA Vital Signs Vital signs: Vital Signs - 8 hr 10/25/20 12:51 10/25/20 15:37 Temperature 99.3 F Pulse Rate 56 L 57 L Respiratory Rate 16 17 Blood Pressure 142/68 H 132/78 Pulse Oximetry 99 99 Medical Decision Making MDM Narrative Medical decision making narrative: Patient has a well-healed surgical scar in his right inguinal area. No signs of infection. He is afebrile. His had a CT scan in the past. Informed him that he needs to follow up with his surgeon. I was able to schedule appointment with him next Wednesday at [address] Butt who is his operative provider. I did inform him that he needed talk with the general surgery department for any further pain management. Will discharge home. I feel we can discharge home without further evaluation. He expressed understanding and agreement. Discharge Plan Departure Patient Disposition: Home Clinical Impression: Postoperative abdominal pain Instructions: DI for Abdominal Pain-Adult Activity Restrictions/Additional Instructions: Having discomfort after an inguinal hernia repair is common. Unfortunately there is not much more that we can do out of the emergency department. Pain control needs to come from the surgeon. I was able to schedule your follow-up appointment next WednesdayOctober 30 at 1015. Your check in time is 1000 hours. Be sure to keep this appointment. Prescriptions: No Action methocarbamol 750 mg tablet 750 mg PO BEDTIME RF: 0 ibuprofen 400 mg tablet 400 mg PO Q8H PRN (Reason: Pain) RF: 0 acetaminophen [Tylenol] 325 mg capsule 650 mg PO Q6H PRN (Reason: Pain) RF: 0 lamotrigine [Lamictal] 100 mg tablet 100 mg PO DAILY RF: 0 prazosin 2 mg capsule 2 mg PO BEDTIME RF: 0 docusate sodium 100 mg capsule 100 mg PO BID Qty: 20 RF: 0 methylphenidate HCl [Ritalin] 10 mg Tablet 10 mg PO BID RF: 0 oxycodone 5 mg tablet 5 mg PO Q6H PRN (Reason: post operative pain) Qty: 30 RF: 0 docusate sodium 100 mg capsule 100 mg PO BID Qty: 20 RF: 0 hydrocodone-acetaminophen [[place]] 5-325 mg tablet 1 tab PO Q6H PRN (Reason: pain) Qty: 10 RF: 0 gabapentin 600 mg tablet 600 mg PO TID RF: 0 cetirizine 10 mg tablet 10 mg PO BID PRN (Reason: Allergy Symptoms) RF: 0
[2020-10-25] MEDS: HYDROCODONE/ACET 5/325 TABLET 1 TAB PO (15:28)
[2020-10-25 15:37] VITALS: BP 132/78; PULSE 57; RESP 17; O2SAT 99
== END 2020-10-25 15:39 | disposition home or self-care (01) ==
PROVIDERS: Emergency Provider Emergency Medicine
DX: R10.9 Unspecified abdominal pain (principal)
CPT/HCPCS: 99283

== ENCOUNTER 2020-11-17 18:29 | Emergency (ER) | payer OTHER, MEDICAID, SELFPAY ==
[2020-11-17 19:20] VITALS: BP 128/61; PULSE 65; RESP 15; TEMP 36.6; O2SAT 98; BMI 20.9
--- NOTE | 2020-11-17 20:56 | PC.NURSE ---
Went to patient's room and he said that the right side of his face hurt starting at his eye. Reported this to the nurse.
--- NOTE | 2020-11-17 21:02 | ED.EYEPROB ---
HPI - Eye Problem General Chief complaint: Eye Problems Stated complaint: something in right eye Time Seen by Provider: 11/17/20 21:02 Source: patient Mode of arrival: Ambulatory Limitations: no limitations History of Present Illness HPI Narrative: This is a 40-year-old male comes emergency department with complaint of pain and foreign body in his right eye. Patient states he was working with a metal fence earlier today and thinks something may have flown in he has had increasing pain in the right eye. He has had some blurriness. Patient denies any prior eye issues, he does not wear contacts or glasses. He does not follow with an [employer] regularly. He is not no prior interventions on his eye. He states his tetanus is up-to-date. He takes medications for degenerative, allergies and he states a medication that is for seizures but is not actually uses a anti seizure medication for himself. Patient does normally take hydrocodone as needed for pain. He states that he tried flushing his eye for 15-30 minutes without any improvement and he can see a small spot in his eye over the cornea. Related Data Home Medications Medication Instructions Recorded Confirmed acetaminophen 325 mg capsule 650 mg PO Q6H PRN 06/21/20 10/30/20 ibuprofen 400 mg tablet 400 mg PO Q8H PRN 06/21/20 10/30/20 lamotrigine 100 mg tablet 100 mg PO DAILY 06/21/20 10/30/20 methocarbamol 750 mg tablet 750 mg PO BEDTIME 06/21/20 10/30/20 prazosin 2 mg capsule 2 mg PO BEDTIME 06/21/20 10/30/20 cetirizine 10 mg PO BID PRN 06/26/20 10/30/20 gabapentin 600 mg PO TID 06/26/20 10/30/20 methylphenidate HCl [Ritalin] 10 mg PO BID 09/30/20 10/30/20 Previous Rx's Medication Instructions Recorded hydrocodone-acetaminophen [[place]] 1 tab PO Q6H PRN #10 tab 11/16/19 docusate sodium 100 mg PO BID #20 cap 06/27/20 docusate sodium 100 mg PO BID #20 cap 09/30/20 oxycodone 5 mg PO Q6H PRN #30 tab 09/30/20 Allergies Allergy/AdvReac Type Severity Reaction Status Date / Time amoxicillin Allergy Severe Anaphylaxis Verified 10/30/20 10:26 amitriptyline AdvReac Severe Agitated Verified 10/30/20 10:26 diphenhydramine AdvReac Severe Agitated Verified 10/30/20 10:26 [From Benadryl] haloperidol [From Haldol] AdvReac Severe Agitated Verified 10/30/20 10:26 Review of Systems Review of Systems ROS Unobtainable: All systems reviewed & are unremarkable except as noted in HPI and below Patient History Medical History Anxiety Chronic pain Compression fracture Depression Head injury Neuropathy PTSD (post-traumatic stress disorder) Surgical History History of appendectomy Social History marital status: household members: spouse occupational status: disabled Smoking Status: Former smoker alcohol intake: former substance use type: marijuana Smoking Status: Former smoker tobacco type: cigarettes alcohol intake frequency: 0-2 drinks per day Substance Use Type: marijuana Exam Narrative Exam Narrative: GENERAL: Alert and oriented x three, well-nourished male in mild distress. HEENT: Head normocephalic, atraumatic, EOMI, pupils reactive, face symmetric, moist mucous membranes NECK: Supple, full range of motion Visual acuity: right 2024 and 2024 on the left General: no globe trauma Eyelids: normal inspection, eyelids everted for exam on right Conjunctiva/Sclera: normal inspection Corneas: normal inspection, no fluorescein was available. Patient does have a metallic foreign body at the 9 o'clock position on the right eye. Was able to remove and patient does have a rust ring present. Patient has some mild abrasion evaluated by myself EOM: intact, no palsy/entrapment Pupils: PERRL, normal accomadation, pupil normal Anterior Chambers: normal inspection, no hypema Posterior: normal fundoscopic on [right/left] EXTREMITIES: Normal range of motion, no clubbing or edema. Neurovascularly intact NEUROLOGICAL: Cranial nerves II through XII grossly intact. Moving all extremities SKIN: Warm, dry, no petechiae, no rashes or lesions. Initial Vital Signs Initial Vital Signs: Vital Signs Temperature 97.8 F 11/17/20 19:20 Pulse Rate 65 11/17/20 19:20 Respiratory Rate 15 11/17/20 19:20 Blood Pressure 128/61 11/17/20 19:20 Pulse Oximetry 98 11/17/20 19:20 Procedures Foreign Body EYE Time Out performed: Yes Location: eye (R) Topical anesthetic used: proparacaine Foreign body: metal Evidence of corneal penetration: Yes Technique: irrigation, cotton tip swab and needle Procedure performed under: direct visualization with magnification and slit-lamp Post-procedure medication: ophthalmic antibiotic and topical anesthetic Patient tolerated procedure: well Complications: residual rust ring Course Orders Ordered: Discontinued Medications Fluorescein Sodium (Fluorescein 1 Mg Strip) 1 mg EYE-RIGHT NOW ONE Stop: 11/17/20 21:03 Ofloxacin (Ofloxacin 0.3% Ophth Prepack) 1 bottle MISC SEEINSTR ONE Stop: 11/17/20 21:34 Last Admin: 11/17/20 21:40 Dose: 2 drop Documented by: RODRIGUEZ Oxycodone/Acetaminophen (Oxycodone/Apap 5/325 Prepack) 1 bottle MISC SEEINSTR ONE Stop: 11/17/20 21:34 Last Admin: 11/17/20 21:42 Dose: 1 bottle Documented by: RODRIGUEZ Proparacaine HCl (Proparacaine 0.5% Ophth Katie) 2 drops EYE-RIGHT NOW ONE Stop: 11/17/20 21:03 Last Admin: 11/17/20 21:20 Dose: 2 drop Documented by: DONA Vital Signs Vital signs: Vital Signs - 8 hr 11/17/20 19:20 Temperature 97.8 F Pulse Rate 65 Respiratory Rate 15 Blood Pressure 128/61 Pulse Oximetry 98 MDM - Eye Problem MDM Narrative Medical decision making narrative: 40-year-old male with foreign body in the right eye, patient had foreign body removed. There is a rust ring present. We did not have fluorescein available so this was not included on the exam but patient was started on antibiotics. And referred for Ophthalmology in the morning for removal of rust ring and recheck. Patient is aware of the importance of follow-up. Believes his tetanus is up-to-date within the last 1 2 years. Discharge Plan Departure Patient Disposition: Home Clinical Impression: Corneal rust ring of right eye Acute foreign body of right eye Qualifiers: Encounter type: initial encounter Qualified Code(s): T15.91XA - Foreign body on external eye, part unspecified, right eye, initial encounter Instructions: DI for Corneal Foreign Body-Eye Activity Restrictions/Additional Instructions: Follow up Ophthalmology tomorrow to be evaluated and for treatment of your rust ring. Call for an appointment in the morning. 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 Use antibiotic eye drops, 2 drops 4 times daily while awake x 7 days. You may take oxycodone 1 tablet every 6 hours as needed for pain. Do not take this with your regular narcotic pain medication. Return for sudden vision loss or decreasing vision, new redness, purulent drainage, increasing swelling of the eye or surrounding skin or other new or concerning symptoms. Prescriptions: No Action methocarbamol 750 mg tablet 750 mg PO BEDTIME RF: 0 ibuprofen 400 mg tablet 400 mg PO Q8H PRN (Reason: Pain) RF: 0 acetaminophen [Tylenol] 325 mg capsule 650 mg PO Q6H PRN (Reason: Pain) RF: 0 lamotrigine [Lamictal] 100 mg tablet 100 mg PO DAILY RF: 0 prazosin 2 mg capsule 2 mg PO BEDTIME RF: 0 docusate sodium 100 mg capsule 100 mg PO BID Qty: 20 RF: 0 methylphenidate HCl [Ritalin] 10 mg Tablet 10 mg PO BID RF: 0 oxycodone 5 mg tablet 5 mg PO Q6H PRN (Reason: post operative pain) Qty: 30 RF: 0 docusate sodium 100 mg capsule 100 mg PO BID Qty: 20 RF: 0 hydrocodone-acetaminophen [[place]] 5-325 mg tablet 1 tab PO Q6H PRN (Reason: pain) Qty: 10 RF: 0 gabapentin 600 mg tablet 600 mg PO TID RF: 0 cetirizine 10 mg tablet 10 mg PO BID PRN (Reason: Allergy Symptoms) RF: 0
[2020-11-17] MEDS: PROPARACAINE 0.5% OPHTH SOL 2 DROPS EYE-RIGHT (21:20)
[2020-11-17] MEDS: OFLOXACIN 0.3% OPHTH PREPACK 1 BOTTLE MISC (21:40)
[2020-11-17] MEDS: OXYCODONE/APAP 5/325 PREPACK 1 BOTTLE MISC (21:42)
== END 2020-11-17 21:48 | disposition home or self-care (01) ==
PROVIDERS: Emergency Provider Emergency Medicine
DX: T15.91XA Foreign body on external eye, part unspecified, right eye, initial encounter (principal); H18.891 Other specified disorders of cornea, right eye
CPT/HCPCS: 65222; 99282; 99283

== ENCOUNTER 2021-03-30 18:33 | Emergency (ER) | payer OTHER, MEDICAID, SELFPAY ==
[2021-03-30 18:33] VITALS: BP 137/91; PULSE 72; RESP 16; TEMP 37; O2SAT 99
[2021-03-30] MEDS: ONDANSETRON 4 MG/2 ML INJ IV (18:45)
[2021-03-30] MEDS: HYDROMORPHONE 0.5 MG INJ IV ×2 (18:45→19:36)
--- NOTE | 2021-03-30 18:45 | DI.RAD.S_ITS ---
PROCEDURE: XR ACUTE ABDOMEN SERIES INDICATIONS: Abdominal pain TECHNIQUE: One view chest and two views of the abdomen were acquired. COMPARISON: [facility], CT, CT ABDOMEN PELVIS W CON, 10/07/2020, 10:15. FINDINGS: Surgical changes and devices: None. Chest: Lungs are clear. Heart size is normal. No pleural effusions. No pneumoperitoneum. Abdomen: Bowel gas pattern is normal. No suspicious calcifications. Elongated right hepatic lobe again noted. Bones: No suspicious bony lesions. IMPRESSION: Nonobstructive bowel gas pattern. No pneumoperitoneum. Dictated by: Srikanth Gonzales M.D. on 03/30/2021 at 19:24 Approved by: Srikanth Gonzales M.D. on 03/30/2021 at 19:25
[2021-03-30 18:50] LABS: Add Manual Diff / Slide Review NO; Basophils Absolute Auto 0 /uL (0-100); Basophils Percent Auto 0.5 % (0-2); Eosinophils Absolute Auto 100 /uL (0-450); Eosinophils Percent Auto 1.5 % (2-4); Hemoglobin 14.2 g/dL (13.5-17.5); Lymphocytes Absolute Auto 3600 /uL (1100-4500); Lymphocytes Percent Auto 39.8 % (25-40); Mean Corpuscular HGB Conc 33.9 % (30-36); Mean Corpuscular Hemoglobin 31.9 PG (26-34); Monocytes Absolute Auto 300 /uL (0-900); Monocytes Percent Auto 3.2 % (3-14); Neutrophils Absolute Auto 5000 /uL (1500-7000); Platelet Count 458 X10^3/uL (150-400); Red Blood Cell Count 4.46 X10^6/uL (4.5-5.9); Red Cell Distribution Width 12.5 % (11.6-14.8)
[2021-03-30 19:00] VITALS: BP 120/83; PULSE 54; RESP 18; O2SAT 98
[2021-03-30 19:00] LABS: Alanine Aminotransferase 21 IU/L (<50); Albumin 4.5 g/dL (3.5-5.0); Albumin Globulin Ratio 1.9 (1.0-2.8); Alkaline Phosphatase 41 U/L (38-126); Aspartate Aminotransferase 26 IU/L (17-59); BUN Creatinine Ratio 15.2 (6-22); Bilirubin Total 0.5 mg/dL (0.2-1.3); Blood Urea Nitrogen 10 mg/dL (9-20); Calcium 9.6 mg/dL (8.4-10.2); Carbon Dioxide 30 mmol/L (22-32); Chloride 108 mmol/L (98-107); Estimated Glomerular Filt Rate > 60.0 mL/min (>60); Globulin 2.4 g/dL (1.7-4.1); Glucose 103 mg/dL (70-100); HEMOLYSIS 19 (0-50); Lipase 98 U/L (23-300); Potassium 3.9 mmol/L (3.4-5.1); Sodium 143 mmol/L (137-145); Total Protein 6.9 g/dL (6.3-8.2)
[2021-03-30] MEDS: SODIUM CHLORIDE 0.9% 1,000 ML 1000 ML IV (19:03)
--- NOTE | 2021-03-30 19:31 | DI.CT.S_ITS ---
PROCEDURE: CT ABDOMEN PELVIS W CON INDICATIONS: severe pain in lower abdomen TECHNIQUE: After the administration of intravenous contrast, axial sections acquired from the lung bases to the pubic symphysis. Coronal and sagittal reformats were performed. For radiation dose reduction, the following was used: automated exposure control, adjustment of mA and/or kV according to patient size. COMPARISON: [facility], CR, XR ACUTE ABDOMEN SERIES, 03/30/2021, 18:40. [facility], CT, CT ABDOMEN PELVIS W CON, 10/07/2020, 10:15. FINDINGS: Image quality: Excellent. Lung bases: Unremarkable. Heart: No significant findings. ABDOMEN: Liver: Unremarkable. Gallbladder: Multiple tiny gallstones are seen in the gallbladder. No secondary signs of acute cholecystitis. A probable diverticulum is seen at the medial portion of the gallbladder without associated inflammatory changes. Biliary ducts: Unremarkable. Pancreas: There is mild diffuse pancreatic ductal dilatation, measuring 4-5 mm in diameter. No obstructing mass is seen at the pancreatic head. This finding is increased when compared to the CT from 10/07/2020. Spleen: Unremarkable. Adrenal Glands: Unremarkable. Kidneys and Ureters: Unremarkable. Stomach and Bowel: Mildly prominent fluid-filled loops of small bowel are seen in the central abdomen. There is mild bowel wall thickening versus underdistention in the ascending colon. Peritoneum: No abnormal intraperitoneal fluid. No free air. Ventral Wall: Stable small fat containing periumbilical hernia. Abdominal Nodes: No retroperitoneal or mesenteric adenopathy by size criteria. Vessels: Aorta and inferior vena cava are normal in size. PELVIS: Pelvic Organs: Unremarkable. Bladder: Unremarkable. Pelvic Nodes: No enlarged lymph nodes. Miscellaneous: No hernias are seen. Bones: Focal degenerative changes are seen at the L5-S1 level. IMPRESSION: 1. Nonspecific mildly prominent fluid-filled loops of small bowel in the central abdomen and mild thickening versus underdistention of the ascending colon. Findings are nonspecific, but could indicate a mild enterocolitis. 2. Multiple tiny gallstones in the gallbladder without secondary inflammatory changes. 3. Diffuse mild dilation of the main pancreatic duct, which is nonspecific. No significant biliary ductal dilatation is seen. No obstructing mass or distal choledocholith is identified. Recommend correlation with clinical laboratory findings. Dictated by: Srikanth Gonzales M.D. on 03/30/2021 at 19:50 Approved by: Srikanth Gonzales M.D. on 03/30/2021 at 20:01
--- NOTE | 2021-03-30 19:46 | ED_ITS ---
HPI - Abdominal Pain General Chief Complaint: Abdominal Pain Stated Complaint: ABD LOWER STOMACH PAIN Time Seen by Provider: 03/30/21 18:40 Source: patient Mode of arrival: Ambulatory History of Present Illness HPI narrative: 40-year-old male smoker with history of chronic abdominal pain, bilateral inguinal hernia repair presents with significant other and a chief complaint lower abdominal pain for the past 4 days or so. He thinks it started rather suddenly but not under any memorable circumstances. He states the pain is worse with motion and improves with rest. He denies any radiation of the pain and states that it is sharp and stabbing as well as crampy. He denies any change in bowel habits such as constipation or diarrhea. He denies any dysuria or urgency but has had some increased frequency of urination. He is nauseated but denies any vomiting. He has no runny nose, sore throat or cough. He denies any new medications or dietary change Related Data Home Medications Medication Instructions Recorded Confirmed acetaminophen 325 mg capsule 650 mg PO Q6H PRN 06/21/20 10/30/20 (Tylenol) ibuprofen 400 mg tablet 400 mg PO Q8H PRN 06/21/20 10/30/20 lamotrigine 100 mg tablet 100 mg PO DAILY 06/21/20 10/30/20 (Lamictal) methocarbamol 750 mg tablet 750 mg PO BEDTIME 06/21/20 10/30/20 prazosin 2 mg capsule 2 mg PO BEDTIME 06/21/20 10/30/20 cetirizine 10 mg tablet 10 mg PO BID PRN 06/26/20 10/30/20 gabapentin 600 mg tablet 600 mg PO TID 06/26/20 10/30/20 methylphenidate HCl 10 mg tablet 10 mg PO BID 09/30/20 10/30/20 (Ritalin) Previous Rx's Medication Instructions Recorded hydrocodone 5 mg-acetaminophen 325 1 tab PO Q6H PRN #10 tab 11/16/19 mg tablet (Gibson) docusate sodium 100 mg capsule 100 mg PO BID #20 cap 06/27/20 docusate sodium 100 mg capsule 100 mg PO BID #20 cap 09/30/20 oxycodone 5 mg tablet 5 mg PO Q6H PRN #30 tab 09/30/20 hyoscyamine sulfate 0.125 mg tablet 0.125 mg PO BID-QID PRN #20 tab 03/30/21 ondansetron 4 mg disintegrating 4 mg PO TID-QID PRN #10 tab 03/30/21 tablet Allergies Allergy/AdvReac Type Severity Reaction Status Date / Time amoxicillin Allergy Severe Anaphylaxis Verified 10/30/20 10:26 amitriptyline AdvReac Severe Agitated Verified 10/30/20 10:26 diphenhydramine AdvReac Severe Agitated Verified 10/30/20 10:26 [From Benadryl] haloperidol [From Haldol] AdvReac Severe Agitated Verified 10/30/20 10:26 Review of Systems Review of Systems Narrative: GENERAL: Denies chills, fatigue, malaise, fever, sweats. HEENT: Denies sinus pain, ear pain, sore throat, difficulty swallowing, dizziness. RESPIRATORY: Denies dyspnea, cough, wheezing, hemoptysis, sputum. CARDIOVASCULAR: Denies chest pain, palpitations, orthopnea, edema, GASTROINTESTINAL: See HPI : Denies dysuria, frequency, incontinence, hematuria, urinary retention. MUSCULOSKELETAL: denies weakness, joint pain, or bony pain SKIN: Denies rash, skin lesions, or other NEUROLOGIC: Denies weakness, headache, numbness, change in speech, confusion, seizures, incoordination. PSYCHIATRIC: No concerning psychosocial issues. 12 point review of systems is negative except for those stated above Patient History Medical History Anxiety Chronic pain Compression fracture Depression Head injury Neuropathy PTSD (post-traumatic stress disorder) Surgical History History of appendectomy Social History marital status: household members: spouse occupational status: disabled Smoking Status: Former smoker alcohol intake: former substance use type: marijuana Smoking Status: Former smoker tobacco type: cigarettes alcohol intake frequency: 0-2 drinks per day Substance Use Type: marijuana Exam Narrative Exam Narrative: GENERAL: [40 year old patient appears stated age. Well-developed patient, in mild distress. HEAD: Atraumatic. Normocephalic. EYES: Pupils equal round and reactive. Extraocular motions intact. No scleral icterus. No injection or drainage. ENT: Nose without bleeding, purulent drainage. Throat without erythema, t onsillar hypertrophy or exudate. Airway patent. NECK: Trachea midline. Non tender CARDIOVASCULAR: Regular rate and rhythm without murmurs, gallops, or rubs. RESPIRATORY: Clear to auscultation. Breath sounds equal bilaterally. No wheezes, rales, or rhonchi. GASTROINTESTINAL: Abdomen soft, mildly tender across the lower abdomen, no distension, no guarding, bowel sounds present in all 4 quadrants BACK: Nontender without deformity or crepitance. No flank tenderness. NEURO: AOx3. SKIN: No rash or erythema of visible areas Initial Vital Signs Initial Vital Signs: Vital Signs Temperature 98.6 F 03/30/21 18:33 Pulse Rate 72 03/30/21 18:33 Respiratory Rate 16 03/30/21 18:33 Blood Pressure 137/91 H 03/30/21 18:33 Pulse Oximetry 99 03/30/21 18:33 Course Orders Ordered: ED Orders 03/30/21 18:42 Complete Blood Count AUTO DIFF Stat Comprehensive Metabolic Panel Stat Lipase Stat 03/30/21 18:45 XR acute abdomen series Stat 03/30/21 19:31 CT abdomen pelvis w con Stat Discontinued Medications Hydromorphone HCl (Hydromorphone 0.5 Mg Inj) 0.5 mg IV NOW ONE Stop: 03/30/21 18:44 Last Admin: 03/30/21 18:45 Dose: 0.5 mg Documented by: YG Hydromorphone HCl (Hydromorphone 0.5 Mg Inj) 0.5 mg IV NOW ONE Stop: 03/30/21 19:32 Last Admin: 03/30/21 19:36 Dose: 0.5 mg Documented by: RONI Sodium Chloride (Normal Saline 0.9%) 1,000 mls @ 1,000 mls/hr IV BOLUS ONE Stop: 03/30/21 19:42 Last Infusion: 03/30/21 20:40 Dose: 0 mls/hr Documented by: Admin: 03/30/21 19:03 Dose: 1,000 mls/hr Documented by: YG Ondansetron HCl (Ondansetron 4 Mg/2 Ml Inj) 4 mg IV NOW ONE Stop: 03/30/21 18:38 Last Admin: 03/30/21 18:45 Dose: 4 mg Documented by: KBRYERS Ondansetron HCl (Ondansetron 4 Mg/2 Ml Inj) 4 mg IV NOW ONE Stop: 03/30/21 18:44 Last Admin: 03/30/21 19:03 Dose: Not Given Documented by: YG Vital Signs Vital signs: Vital Signs - 8 hr 03/30/21 18:33 03/30/21 19:00 03/30/21 20:41 Temperature 98.6 F Pulse Rate 72 54 L 52 L Respiratory Rate 16 18 16 Blood Pressure 137/91 H 120/83 126/73 Pulse Oximetry 99 98 99 MDM - Abdominal Pain Lab Data Result diagrams: 03/30/21 18:42 03/30/21 18:42 Labs: Lab Results 03/30/21 03/30/21 Range/Units 18:42 18:42 WBC 9.0 (4.5-11.0) X10^3/uL RBC 4.46 L (4.5-5.9) X10^6/uL Hgb 14.2 (13.5-17.5) g/dL Hct 42.0 (41-53) % MCV 94.0 (80-100) fL MCH 31.9 (26-34) PG MCHC 33.9 (30-36) % RDW 12.5 (11.6-14.8) % Plt Count 458 H (150-400) X10^3/uL Neut % (Auto) 55.0 (50-75) % Lymph % (Auto) 39.8 (25-40) % [place] % (Auto) 3.2 (3-14) % Eos % (Auto) 1.5 L (2-4) % Baso % (Auto) 0.5 (0-2) % Neut # (Auto) 5000 (1901-3251) /uL Lymph # (Auto) 3600 (6036-4545) /uL [place] # (Auto) 300 (0-900) /uL Eos # (Auto) 100 (0-450) /uL Baso # (Auto) 0 (0-100) /uL Sodium 143 (137-145) mmol/L Potassium 3.9 (3.4-5.1) mmol/L Chloride 108 H (98-107) mmol/L Carbon Dioxide 30 (22-32) mmol/L BUN 10 (9-20) mg/dL Creatinine 0.66 (0.66-1.25) mg/dL Estimated GFR > 60.0 (>60) mL/min BUN/Creatinine Ratio 15.2 (6-22) Glucose 103 H (70-100) mg/dL Calcium 9.6 (8.4-10.2) mg/dL Total Bilirubin 0.5 (0.2-1.3) mg/dL AST 26 (17-59) IU/L ALT 21 (<50) IU/L Alkaline Phosphatase 41 (38-126) U/L Total Protein 6.9 (6.3-8.2) g/dL Albumin 4.5 (3.5-5.0) g/dL Globulin 2.4 (1.7-4.1) g/dL Albumin/Globulin Ratio 1.9 (1.0-2.8) Lipase 98 (23-300) U/L Point of care testing: Urine Dip Bedside Urine Glucose Negative Bedside Urine Bilirubin - Negative Bedside Urine Ketone - Negative Urine Specific [place] 1.015 Bedside Urine Occult Blood - Negative Bedside Urine pH 6.5 Bedside Urine Protein - Negative Bedside Urine Urobilinogen - Negative Bedside Urine Nitrite - Negative Bedside Urine Leukocytes - Negative Esterase Imaging Data CT scan - abdomen/pelvis: Radiologist's Impression: Tee Greenberg??40??M??1980 ? Allergy/Adv: amoxicillin, amitriptyline, diphenhydramine, haloperidol (More??) Close Abdomen/Pelvis CT (Signed) Srikanth Gonzales - 03/30/21 Chest/Abdomen X-ray (Signed) Srikanth Gonzales - 03/30/21 Abdomen/Pelvis CT (Signed) Fady Muhammad - 10/07/20 Thoracic Spine X-Ray (Signed) Jennifer Rodriguez - 02/12/20 Lumbar Spine X-Ray (Signed) Jennifer Rodriguez - 02/12/20 Foot X-Ray (Signed) Agapito Beauchamp - 12/26/[address] (Signed) Vijay Conte - 11/15/19 Chest/Abdomen/Pelvis CT (Signed) Vijay Conte - 11/15/[address] (Signed) Vijay Conte - 11/15/19 Launch?[address] [address] [address] Scan Report Signed Patient: Tee Greenberg MR#: [id number] : 1980 Acct:[id number] Age/Sex: 40 / M Date of Service: 03/30/21 Loc: ED Accession Number: [id number] ?? Procedure: CT abdomen pelvis w con Ordering Provider: Zohaib Cline D.O. PROCEDURE:? CT ABDOMEN PELVIS W CON ? INDICATIONS:? severe pain in lower abdomen ? TECHNIQUE:? After the administration of intravenous contrast, axial sections acquired from the lung bases to the pubic symphysis.? Coronal and sagittal reformats were performed.? For radiation dose reduction, the following was used:? automated exposure control, adjustment of mA and/or kV according to patient size.? ? COMPARISON:? [facility], CR, XR ACUTE ABDOMEN SERIES, 03/30/2021, 18:40.? [facility], CT, CT ABDOMEN PELVIS W CON, 10/07/2020, 10:15. ? FINDINGS:? Image quality:? Excellent.? ? Lung bases:? Unremarkable. Heart:? No significant findings. ? ABDOMEN: Liver:? Unremarkable.? ? Gallbladder:? Multiple tiny gallstones are seen in the gallbladder.? No secondary signs of acute cholecystitis.? A probable diverticulum is seen at the medial portion of the gallbladder without associated inflammatory changes. Biliary ducts:? Unremarkable.? ? Pancreas:? There is mild diffuse pancreatic ductal dilatation, measuring 4-5 mm in diameter.? No obstructing mass is seen at the pancreatic head.? This finding is increased when compared to the CT from 10/07/2020. Spleen:? Unremarkable.? ? Adrenal Glands:? Unremarkable.? ? Kidneys and Ureters:? Unremarkable.? ? ? Stomach and Bowel:? Mildly prominent fluid-filled loops of small bowel are seen in the central abdomen.? There is mild bowel wall thickening versus underdistention in the ascending colon. Peritoneum:? No abnormal intraperitoneal fluid.? No free air.? ? Ventral Wall: ? Stable small fat containing periumbilical hernia. Abdominal Nodes:? No retroperitoneal or mesenteric adenopathy by size criteria.? Vessels:? Aorta and inferior vena cava are normal in size.? ? PELVIS: Pelvic Organs:? Unremarkable.? ? Bladder:? Unremarkable.? ? Pelvic Nodes: No enlarged lymph nodes.? Miscellaneous: No hernias are seen. ? ? ? Bones:? Focal degenerative changes are seen at the L5-S1 level. ? ? IMPRESSION:? 1. Nonspecific mildly prominent fluid-filled loops of small bowel in the central abdomen and mild thickening versus underdistention of the ascending colon.? Findings are nonspecific, but could indicate a mild enterocolitis. ? 2. Multiple tiny gallstones in the gallbladder without secondary inflammatory changes. ? 3. Diffuse mild dilation of the main pancreatic duct, which is nonspecific.? No significant biliary ductal dilatation is seen.? No obstructing mass or distal choledocholith is identified.? Recommend correlation with clinical laboratory findings.? ? ? Dictated by: Srikanth Gonzales M.D. on 03/30/2021 at 19:50 ? ? Approved by: Srikanth Gonzales M.D. on 03/30/2021 at 20:01 ? MDM Narrative Medical decision making narrative: Patient with chronic abdominal pain presents with 4 days of discomfort. He has had no signs of sepsis and is tolerating orals without difficulty. His pain is well controlled the above-stated the rapies. He has reassuring labs and imaging. Patient is appropriate for discharge. Extensive return precautions given and questions answered to his apparent satisfaction Discharge Plan Departure Patient Disposition: Home Clinical Impression: Abdominal pain Instructions: DI for Abdominal Pain-Adult Activity Restrictions/Additional Instructions: *You have been diagnosed with [lower abdominal pain, labs and CT are very reassuring *What to do: *Please continue to take your regular medications as directed. [x] New medication prescriptions sent to your pharmacy: [[facility] in [facility] ] [ ] New medication written as a paper prescription [ ] No new medications given *Please follow up with your primary care provider in 2-3 days, call for an appointment. Let them know you were seen in the Emergency Department and that we ask that you be seen in follow up. We will electronically transmit a record of today's note if your PCP is in our system *If you do not have a primary care provider please contact the [facility] Resource line at [phone]. They will ask some questions about your medical history and help get you set up with a doctor in the community. *Return to Emergency Department if you should have any new, worsening or concerning symptoms, such as [fever greater than 101 F, shaking chills, worsening pain, persistent vomiting or other bothersome symptoms] Prescriptions: New hyoscyamine sulfate 0.125 mg tablet 0.125 mg PO BID-QID PRN (Reason: dyspepsia) Qty: 20 RF: 0 ondansetron 4 mg tablet,disintegrating 4 mg PO TID-QID PRN (Reason: nausea and vomiting) Qty: 10 RF: 0 No Action methocarbamol 750 mg tablet 750 mg PO BEDTIME RF: 0 ibuprofen 400 mg tablet 400 mg PO Q8H PRN (Reason: Pain) RF: 0 acetaminophen [Tylenol] 325 mg capsule 650 mg PO Q6H PRN (Reason: Pain) RF: 0 lamotrigine [Lamictal] 100 mg tablet 100 mg PO DAILY RF: 0 prazosin 2 mg capsule 2 mg PO BEDTIME RF: 0 docusate sodium 100 mg capsule 100 mg PO BID Qty: 20 RF: 0 methylphenidate HCl [Ritalin] 10 mg Tablet 10 mg PO BID RF: 0 oxycodone 5 mg tablet 5 mg PO Q6H PRN (Reason: post operative pain) Qty: 30 RF: 0 docusate sodium 100 mg capsule 100 mg PO BID Qty: 20 RF: 0 hydrocodone-acetaminophen [Gibson] 5-325 mg tablet 1 tab PO Q6H PRN (Reason: pain) Qty: 10 RF: 0 gabapentin 600 mg tablet 600 mg PO TID RF: 0 cetirizine 10 mg tablet 10 mg PO BID PRN (Reason: Allergy Symptoms) RF: 0
[2021-03-30 20:41] VITALS: BP 126/73; PULSE 52; RESP 16; O2SAT 99
== END 2021-03-30 20:42 | disposition home or self-care (01) ==
PROVIDERS: Emergency Provider Emergency Medicine
DX: R10.30 Lower abdominal pain, unspecified (principal)
CPT/HCPCS: 36415; 51798; 74022; 74177; 80053; 81003; 83690; 85025; 96361; 96374; 96375; 96376; 99284; J1170; J2405; Q9967

== ENCOUNTER 2021-04-25 14:53 | Emergency (ER) | payer OTHER, MEDICAID, SELFPAY ==
[2021-04-25 15:08] VITALS: BP 128/61; PULSE 66; RESP 18; TEMP 36.8; O2SAT 99; BMI 22.0
--- NOTE | 2021-04-25 15:11 | DI.US.S_ITS ---
PROCEDURE: US ABDOMEN LIMITED INDICATIONS: 04/20 LEFT GROIN PAIN. RULE OUT HERNIA TECHNIQUE: Real-time focused scanning was performed of the inguinal region, with image documentation. COMPARISON: [facility], CT, CT ABDOMEN PELVIS W CON, 03/30/2021, 19:40. FINDINGS: No left inguinal hernia is seen. No acute sonographic abnormality is seen. The visualized portions of the common femoral vein and greater saphenous vein are patent. IMPRESSION: No sonographic evidence of left inguinal hernia. No acute abnormality is seen. Dictated by: Srikanth Gonzales M.D. on 04/25/2021 at 17:00 Approved by: Srikanth Gonzales M.D. on 04/25/2021 at 17:01
[2021-04-25 16:53] LABS: Appearance Urine UA CLEAR; Bilirubin Urine UA NEGATIVE (NEGATIVE); Color Urine UA YELLOW; Glucose Urine UA NEGATIVE (Negative); Ketones Urine UA NEGATIVE (NEGATIVE); Leukocyte Esterase Urine UA NEGATIVE (NEGATIVE); Nitrite Urine UA NEGATIVE (Negative); Occult Blood Urine UA NEGATIVE (Negative); Protein Urine UA NEGATIVE (Negative); Urobilinogen Urine UA 0.2 E.U./dL (0.2)
[2021-04-25 17:23] LABS: Bacteria Urine Occasional (0-1); Culture Indicated Urine Cult Not Indicated; RBC Urine 0-1/HPF (0-5/HPF); WBC Urine 0-1/HPF (0-5/HPF)
--- NOTE | 2021-04-25 21:06 | ED.MALEGU ---
HPI - Male Genitourinary <Jen Josiasprerna, - Last Filed: 04/27/21 07:51> General Chief complaint: Urogenital-Male Stated complaint: Groin Pain Time Seen by Provider: 04/25/21 20:52 Source: patient Mode of arrival: Ambulatory Limitations: no limitations History of Present Illness HPI Narrative: Patient is a 40-year-old male with history of bilateral inguinal hernia repair, chronic pain, PTSD, presenting today with 2 days of left inguinal pain. He says it is actually right over the inguinal ligament. 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 He said he sought pulsating previously. He denies any numbness tingling or weakness down his leg. He has absolutely no testicular pain or swelling. He has not had any fever or chills. Related Data Home Medications Medication Instructions Recorded Confirmed acetaminophen 325 mg capsule 650 mg PO Q6H PRN 06/21/20 10/30/20 (Tylenol) ibuprofen 400 mg tablet 400 mg PO Q8H PRN 06/21/20 10/30/20 lamotrigine 100 mg tablet 100 mg PO DAILY 06/21/20 10/30/20 (Lamictal) methocarbamol 750 mg tablet 750 mg PO BEDTIME 06/21/20 10/30/20 prazosin 2 mg capsule 2 mg PO BEDTIME 06/21/20 10/30/20 cetirizine 10 mg tablet 10 mg PO BID PRN 06/26/20 10/30/20 gabapentin 600 mg tablet 600 mg PO TID 06/26/20 10/30/20 methylphenidate HCl 10 mg tablet 10 mg PO BID 09/30/20 10/30/20 (Ritalin) Previous Rx's Medication Instructions Recorded hydrocodone 5 mg-acetaminophen 325 1 tab PO Q6H PRN #10 tab 11/16/19 mg tablet ([place]) docusate sodium 100 mg capsule 100 mg PO BID #20 cap 06/27/20 docusate sodium 100 mg capsule 100 mg PO BID #20 cap 09/30/20 oxycodone 5 mg tablet 5 mg PO Q6H PRN #30 tab 09/30/20 hyoscyamine sulfate 0.125 mg tablet 0.125 mg PO BID-QID PRN #20 tab 03/30/21 ondansetron 4 mg disintegrating 4 mg PO TID-QID PRN #10 tab 03/30/21 tablet Allergies Allergy/AdvReac Type Severity Reaction Status Date / Time amoxicillin Allergy Severe Anaphylaxis Verified 04/25/21 15:08 amitriptyline AdvReac Severe Agitated Verified 04/25/21 15:08 diphenhydramine AdvReac Severe Agitated Verified 04/25/21 15:08 [From Benadryl] haloperidol [From Haldol] AdvReac Severe Agitated Verified 04/25/21 15:08 Review of Systems <Jen Horne DO - Last Filed: 04/27/21 07:51> Review of Systems Narrative: GENERAL: Denies chills, fatigue, malaise, fever, sweats, travel HEENT: Denies sinus pain, ear pain, sore throat, difficulty swallowing, neck pain RESPIRATORY: Denies dyspnea, cough, wheezing, hemoptysis, sputum. CARDIOVASCULAR: Denies chest pain, palpitations, orthopnea, edema GASTROINTESTINAL: See HPI : Denies dysuria, frequency, incontinence, hematuria, urinary retention, flank pain. MUSCULOSKELETAL: Denies weakness, joint pain, or bony pain SKIN: No rash, no erythema, no pruritus NEUROLOGIC: Denies weakness, dizziness, headache, numbness, change in speech, confusion PSYCHIATRIC: No concerning psychosocial issues. 12 point review of systems is negative except for those stated above and HPI Patient History <Jen Horne DO - Last Filed: 04/27/21 07:51> Medical History Anxiety Chronic pain Compression fracture Depression Head injury Neuropathy PTSD (post-traumatic stress disorder) Surgical History History of appendectomy Social History marital status: household members: spouse occupational status: disabled Smoking Status: Former smoker alcohol intake: former substance use type: marijuana Smoking Status: Former smoker tobacco type: cigarettes alcohol intake frequency: 0-2 drinks per day Substance Use Type: marijuana Exam <Jen Horne DO - Last Filed: 04/27/21 07:51> Initial Vital Signs Initial Vital Signs: Vital Signs Temperature 98.2 F 04/25/21 15:08 Pulse Rate 66 04/25/21 15:08 Respiratory Rate 18 04/25/21 15:08 Blood Pressure 128/61 04/25/21 15:08 Pulse Oximetry 99 04/25/21 15:08 GENERAL: Well-appearing, well-nourished and in no acute distress. HEENT: Head atraumatic,EOMI, pupils reactive, face symmetric, moist mucous membranes CARDIOVASCULAR: Regular rate and rhythm without murmurs, rubs or gallops. RESPIRATORY: Breath sounds equal bilaterally, no wheezes rales or rhonchi. ABDOMEN: Soft, nontender. Normoactive bowel sounds all 4 quadrants. No guarding or rebound. Left inguinal ligament pain. No pulsatile mass. No hernia, but exquisitely tender along the inguinal ligament. No obvious lymph nodes are present : No CVA tenderness nurse Jennifer at bedside for exam. No testicular pain no inguinal hernia bilaterally no significant testicular erythema EXTREMITIES: Normal range of motion, no clubbing or edema. Neurovascularly intact NEUROLOGICAL: Alert and oriented x4.Normal gait and speech. Cranial nerves II through XII grossly intact. SKIN: Warm, dry, no laceration, no petechiae, no rashes or lesions. <Anais Ferrer DO - Last Filed: 04/26/21 07:11> Initial Vital Signs Initial Vital Signs: Vital Signs Temperature 98.2 F 04/25/21 15:08 Pulse Rate 66 04/25/21 15:08 Respiratory Rate 18 04/25/21 15:08 Blood Pressure 128/61 04/25/21 15:08 Pulse Oximetry 99 04/25/21 15:08 Course <Jen Horne DO - Last Filed: 04/27/21 07:51> Orders Ordered: Discontinued Medications Hydromorphone HCl (Hydromorphone 1 Mg Inj) 1 mg IV NOW ONE Stop: 04/25/21 21:11 Last Admin: 04/25/21 21:26 Dose: 1 mg Documented by: ATAYLOR Hydromorphone HCl (Hydromorphone 1 Mg Inj) 1 mg IV NOW ONE Stop: 04/25/21 22:59 Last Admin: 04/25/21 23:01 Dose: 1 mg Documented by: Ketorolac Tromethamine (Ketorolac 30 Mg/Ml Vial) 15 mg IV NOW ONE Stop: 04/25/21 22:06 Last Admin: 04/25/21 22:17 Dose: 15 mg Documented by: Vital Signs Vital signs: Vital Signs - 8 hr 04/25/21 15:08 04/25/21 21:20 Temperature 98.2 F Pulse Rate 66 48 L Respiratory Rate 18 16 Blood Pressure 128/61 125/78 Pulse Oximetry 99 98 <Anais Ferrer DO - Last Filed: 04/26/21 07:11> Orders Ordered: Discontinued Medications Hydromorphone HCl (Hydromorphone 1 Mg Inj) 1 mg IV NOW ONE Stop: 04/25/21 21:11 Last Admin: 04/25/21 21:26 Dose: 1 mg Documented by: ATAYLOR Hydromorphone HCl (Hydromorphone 1 Mg Inj) 1 mg IV NOW ONE Stop: 04/25/21 22:59 Last Admin: 04/25/21 23:01 Dose: 1 mg Documented by: Ketorolac Tromethamine (Ketorolac 30 Mg/Ml Vial) 15 mg IV NOW ONE Stop: 04/25/21 22:06 Last Admin: 04/25/21 22:17 Dose: 15 mg Documented by: Vital Signs Vital signs: Vital Signs - 8 hr 04/25/21 15:08 04/25/21 21:20 Temperature 98.2 F Pulse Rate 66 48 L Respiratory Rate 18 16 Blood Pressure 128/61 125/78 Pulse Oximetry 99 98 MDM - Male Genitourinary <Jen Horne DO - Last Filed: 04/27/21 07:51> Lab Data Result diagrams: 04/25/21 21:15 04/25/21 21:15 Labs: Lab Results 04/25/21 04/25/21 04/25/21 Range/Units 16:29 21:15 21:15 WBC 8.5 (4.5-11.0) X10^3/uL RBC 3.90 L (4.5-5.9) X10^6/uL Hgb 12.3 L (13.5-17.5) g/dL Hct 36.2 L (41-53) % MCV 92.9 (80-100) fL MCH 31.6 (26-34) PG MCHC 34.1 (30-36) % RDW 12.8 (11.6-14.8) % Plt Count 357 (150-400) X10^3/uL Neut % (Auto) 53.2 (50-75) % Lymph % (Auto) 40.0 (25-40) % [place] % (Auto) 4.1 (3-14) % Eos % (Auto) 1.9 L (2-4) % Baso % (Auto) 0.8 (0-2) % Neut # (Auto) 4500 (6086-8831) /uL Lymph # (Auto) 3400 (5476-1129) /uL [place] # (Auto) 300 (0-900) /uL Eos # (Auto) 200 (0-450) /uL Baso # (Auto) 100 (0-100) /uL Sodium 142 (137-145) mmol/L Potassium 3.2 L (3.4-5.1) mmol/L Chloride 108 H (98-107) mmol/L Carbon Dioxide 31 (22-32) mmol/L BUN 12 (9-20) mg/dL Creatinine 0.65 L (0.66-1.25) mg/dL Estimated GFR > 60.0 (>60) mL/min BUN/Creatinine Ratio 18.5 (6-22) Glucose 86 (70-100) mg/dL Calcium 9.2 (8.4-10.2) mg/dL Total Bilirubin 0.4 (0.2-1.3) mg/dL AST 21 (17-59) IU/L ALT 17 (<50) IU/L Alkaline Phosphatase 43 (38-126) U/L Total Protein 6.3 (6.3-8.2) g/dL Albumin 4.1 (3.5-5.0) g/dL Globulin 2.2 (1.7-4.1) g/dL Albumin/Globulin Ratio 1.9 (1.0-2.8) Lipase 95 (23-300) U/L Urine Color Yellow Urine Appearance Clear Urine pH 7.0 (4.5-8.0) Ur Specific [place] 1.010 (1.000-1.035) Urine Protein Negative (Negative) Urine Glucose (UA) Negative (Negative) g/dL Urine Ketones Negative (NEGATIVE) Urine Occult Blood Negative (Negative) Urine Nitrate Negative (Negative) Urine Bilirubin Negative (NEGATIVE) Urine Urobilinogen 0.2 (0.2) E.U./dL Ur Leukocyte Esterase Negative (NEGATIVE) Urine RBC 0-1/hpf (0-5/HPF) Urine WBC 0-1/hpf (0-5/HPF) Urine Bacteria Occasional (0-1) D (None) Ur Culture Indicated? Cult not indicated Imaging Data US - abdomen: Radiologist's Impression: PROCEDURE:? US ABDOMEN LIMITED ? INDICATIONS:? 04/20 LEFT GROIN PAIN. RULE OUT HERNIA ? TECHNIQUE:? Real-time focused scanning was performed of the inguinal region, with image documentation.? ? COMPARISON:? [facility], CT, CT ABDOMEN PELVIS W CON, 03/30/2021, 19:40. ? FINDINGS:? No left inguinal hernia is seen.? No acute sonographic abnormality is seen.? The visualized portions of the common femoral vein and greater saphenous vein are patent. ? IMPRESSION:? No sonographic evidence of left inguinal hernia.? No acute abnormality is seen. ? ? Dictated by: Srikanth Gonzales M.D. on 04/25/2021 at 17:00 ?? [facility] Narrative Medical decision making narrative: The patient is having some left inguinal ligament pain. No appreciated hernia is felt but he is exquisitely tender. No lymph nodes or palpable mass on a. Ultrasound initially was negative blood work is reassuring. Will get CT to evaluate for other possible etiology possible fat containing hernia versus of groin strain. 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 Patient signed out to Dr. Ferrer for follow-up CT and disposition Dr. Ferrer: 40-year-old male with lower abdominal discomfort exam was signed out to myself CT shows some possible change the colon but is seen on priors and may be from under distention. His cholelithiasis but is not the same location as well he was tender and labs do not support this. Patient feeling better during stay here after medications. <Anais Ferrer, DO - Last Filed: 04/26/21 07:11> Lab Data Labs: Lab Results 04/25/21 04/25/21 04/25/21 Range/Units 16:29 21:15 21:15 WBC 8.5 (4.5-11.0) X10^3/uL RBC 3.90 L (4.5-5.9) X10^6/uL Hgb 12.3 L (13.5-17.5) g/dL Hct 36.2 L (41-53) % MCV 92.9 (80-100) fL MCH 31.6 (26-34) PG MCHC 34.1 (30-36) % RDW 12.8 (11.6-14.8) % Plt Count 357 (150-400) X10^3/uL Neut % (Auto) 53.2 (50-75) % Lymph % (Auto) 40.0 (25-40) % [place] % (Auto) 4.1 (3-14) % Eos % (Auto) 1.9 L (2-4) % Baso % (Auto) 0.8 (0-2) % Neut # (Auto) 4500 (4582-5116) /uL Lymph # (Auto) 3400 (3394-0194) /uL [place] # (Auto) 300 (0-900) /uL Eos # (Auto) 200 (0-450) /uL Baso # (Auto) 100 (0-100) /uL Sodium 142 (137-145) mmol/L Potassium 3.2 L (3.4-5.1) mmol/L Chloride 108 H (98-107) mmol/L Carbon Dioxide 31 (22-32) mmol/L BUN 12 (9-20) mg/dL Creatinine 0.65 L (0.66-1.25) mg/dL Estimated GFR > 60.0 (>60) mL/min BUN/Creatinine Ratio 18.5 (6-22) Glucose 86 (70-100) mg/dL Calcium 9.2 (8.4-10.2) mg/dL Total Bilirubin 0.4 (0.2-1.3) mg/dL AST 21 (17-59) IU/L ALT 17 (<50) IU/L Alkaline Phosphatase 43 (38-126) U/L Total Protein 6.3 (6.3-8.2) g/dL Albumin 4.1 (3.5-5.0) g/dL Globulin 2.2 (1.7-4.1) g/dL Albumin/Globulin Ratio 1.9 (1.0-2.8) Lipase 95 (23-300) U/L Urine Color Yellow Urine Appearance Clear Urine pH 7.0 (4.5-8.0) Ur Specific [place] 1.010 (1.000-1.035) Urine Protein Negative (Negative) Urine Glucose (UA) Negative (Negative) g/dL Urine Ketones Negative (NEGATIVE) Urine Occult Blood Negative (Negative) Urine Nitrate Negative (Negative) Urine Bilirubin Negative (NEGATIVE) Urine Urobilinogen 0.2 (0.2) E.U./dL Ur Leukocyte Esterase Negative (NEGATIVE) Urine RBC 0-1/hpf (0-5/HPF) Urine WBC 0-1/hpf (0-5/HPF) Urine Bacteria Occasional (0-1) D (None) Ur Culture Indicated? Cult not indicated Imaging Data CT scan - abdomen/pelvis: Radiologist's Impression: Tee Greenberg??40??M??1980 ? Allergy/Adv: amoxicillin, amitriptyline, diphenhydramine, haloperidol (More??) Close Abdomen/Pelvis CT (Signed) Dewayne Saha - 04/25/21 Abdomen Ultrasound (Signed) Srikanth Gonzales - 04/25/21 Abdomen/Pelvis CT (Signed) Srikanth Gonzales - 03/30/21 Chest/Abdomen X-ray (Signed) Srikanth Gonzales - 03/30/21 Abdomen/Pelvis CT (Signed) Fady Muhammad - 10/07/20 Thoracic Spine X-Ray (Signed) Jennifer Rodriguez - 02/12/20 Lumbar Spine X-Ray (Signed) Jennifer Rodriguez - 02/12/20 Foot X-Ray (Signed) Agapito Beauchamp - 12/26/[address] (Signed) Vijay Conte - 11/15/19 Chest/Abdomen/Pelvis CT (Signed) Vijay Conte - 11/15/[address] (Signed) Vijay Conte - 11/15/19 [place] [address] CT Scan Report Signed Patient: Tee rGeenberg MR#: [id number] : 1980 Acct:[id number] Age/Sex: 40 / M Date of Service: 04/25/21 Loc: ED Accession Number: [id number] ?? Procedure: CT abdomen pelvis w con Ordering Provider: Jen Horne D.O. PROCEDURE:? CT ABDOMEN PELVIS W CON ? INDICATIONS:? Left lower quadrant pain and left inguinal pain. ? TECHNIQUE:? After the administration of intravenous contrast, axial sections acquired from the lung bases to the pubic symphysis.? Coronal and sagittal reformats were performed.? For radiation dose reduction, the following was used:? automated exposure control, adjustment of mA and/or kV according to patient size.? ? COMPARISON:? [facility], RG, MRI ABDOMEN W/O CONTRAST, 08/07/2020, 18:21.? [facility], CT, CT ABDOMEN PELVIS W CON, 10/07/2020, 10:15.? [facility], CT, CT ABDOMEN PELVIS W CON, 03/30/2021, 19:40. ? FINDINGS:? Image quality:? Excellent.? ? Lung bases:? Lung bases are clear.? Tiny hiatal hernia. Heart:? No significant findings. ? ABDOMEN: Liver:? Liver is normal in size and enhancement.? ? Gallbladder:? Gallbladder contains small gallstones.? No gallbladder wall thickening or pericholecystic fluid collection.? ? Biliary ducts:? Unremarkable.? ? Pancreas:? Pancreas is normal in morphology and enhancement.? There is mild pancreatic dilation measuring up to 4.8 mm.? ? Spleen:? Unremarkable.? ? Adrenal Glands:? Unremarkable.? ? Kidneys and Ureters:? Unremarkable.? ? ? Stomach and Bowel:? Stomach, small bowel loops, and colon are normal in caliber.? Mild diverticulosis.? There may be mild thickening of sigmoid colon, which could be caused by artifact due to lack of contrast extension.? There is a similar appearance on the the last CT exam. Peritoneum:? No abnormal intraperitoneal fluid.? No free air.? ? Ventral Wall: ? There is a tiny fat containing umbilical hernia.? Abdominal Nodes:? No retroperitoneal or mesenteric adenopathy by size criteria.? Vessels:? Aorta and inferior vena cava are normal in size.? ? PELVIS: Pelvic Organs:? Unremarkable.? ? Bladder:? Unremarkable.? ? Pelvic Nodes: No enlarged lymph nodes.? Miscellaneous: No hernias are seen. ? ? ? Bones:? Unremarkable.? IMPRESSION:? ? 1. Possible mild colonic thickening involving the sigmoid colon although the appearance could be caused artifact from non distension.? On the comparison CT dated 03/30/2021, the sigmoid colon has a similar appearance. 2. Mild diverticulosis without diverticulitis. 3. Cholelithiasis.? No CT findings to suggest acute cholecystitis.? Mild pancreatic duct dilation of uncertain etiology.? If clinically indicated, MRCP may be obtained for follow-up. 4. No inguinal hernias.? ? ? The result was discussed with Dr. Horne. ? ? Dictated by: Dustin Saha M.D. on 04/25/2021 at 22:42 ? ? Approved by: Dustin Saha M.D. on 04/25/2021 at 22:54?? MDM Narrative Medical decision making narrative: 40-year-old male with lower abdominal discomfort exam was signed out to myself CT shows some possible change the colon but is seen on priors and may be from under distention. His cholelithiasis but is not the same location as well he was tender and labs do not support this. Patient feeling better during stay here after medications. Discharge Plan Departure Patient Disposition: Home Clinical Impression: Strain of left inguinal muscle Qualifiers: Encounter type: initial encounter Qualified Code(s): S39.013A - Strain of muscle, fascia and tendon of pelvis, initial encounter Instructions: Groin Strain Activity Restrictions/Additional Instructions: *You have been diagnosed with left groin strain *What to do: At this time increase activity as tolerated. May try ice or heat whichever makes it feel better. Like stretching. No lifting. *Continue to take medications as directed Continue her chronic pain management May add Motrin 600 mg every 6 hours if needed for [id number] *Follow up with your primary care provider in 2-3 days *Return to ER if you should have increasing pain, change in bowel movements or any new, worsening or concerning symptoms Prescriptions: No Action methocarbamol 750 mg tablet 750 mg PO BEDTIME RF: 0 ibuprofen 400 mg tablet 400 mg PO Q8H PRN (Reason: Pain) RF: 0 acetaminophen [Tylenol] 325 mg capsule 650 mg PO Q6H PRN (Reason: Pain) RF: 0 lamotrigine [Lamictal] 100 mg tablet 100 mg PO DAILY RF: 0 prazosin 2 mg capsule 2 mg PO BEDTIME RF: 0 docusate sodium 100 mg capsule 100 mg PO BID Qty: 20 RF: 0 methylphenidate HCl [Ritalin] 10 mg Tablet 10 mg PO BID RF: 0 oxycodone 5 mg tablet 5 mg PO Q6H PRN (Reason: post operative pain) Qty: 30 RF: 0 docusate sodium 100 mg capsule 100 mg PO BID Qty: 20 RF: 0 hyoscyamine sulfate 0.125 mg tablet 0.125 mg PO BID-QID PRN (Reason: dyspepsia) Qty: 20 RF: 0 ondansetron 4 mg tablet,disintegrating 4 mg PO TID-QID PRN (Reason: nausea and vomiting) Qty: 10 RF: 0 hydrocodone-acetaminophen [[place]] 5-325 mg tablet 1 tab PO Q6H PRN (Reason: pain) Qty: 10 RF: 0 gabapentin 600 mg tablet 600 mg PO TID RF: 0 cetirizine 10 mg tablet 10 mg PO BID PRN (Reason: Allergy Symptoms) RF: 0
--- NOTE | 2021-04-25 21:10 | DI.CT.S_ITS ---
PROCEDURE: CT ABDOMEN PELVIS W CON INDICATIONS: Left lower quadrant pain and left inguinal pain. TECHNIQUE: After the administration of intravenous contrast, axial sections acquired from the lung bases to the pubic symphysis. Coronal and sagittal reformats were performed. For radiation dose reduction, the following was used: automated exposure control, adjustment of mA and/or kV according to patient size. COMPARISON: [facility], RG, MRI ABDOMEN W/O CONTRAST, 08/07/2020, 18:21. [facility], CT, CT ABDOMEN PELVIS W CON, 10/07/2020, 10:15. [facility], CT, CT ABDOMEN PELVIS W CON, 03/30/2021, 19:40. FINDINGS: Image quality: Excellent. Lung bases: Lung bases are clear. Tiny hiatal hernia. Heart: No significant findings. ABDOMEN: Liver: Liver is normal in size and enhancement. Gallbladder: Gallbladder contains small gallstones. No gallbladder wall thickening or pericholecystic fluid collection. Biliary ducts: Unremarkable. Pancreas: Pancreas is normal in morphology and enhancement. There is mild pancreatic dilation measuring up to 4.8 mm. Spleen: Unremarkable. Adrenal Glands: Unremarkable. Kidneys and Ureters: Unremarkable. Stomach and Bowel: Stomach, small bowel loops, and colon are normal in caliber. Mild diverticulosis. There may be mild thickening of sigmoid colon, which could be caused by artifact due to lack of contrast extension. There is a similar appearance on the the last CT exam. Peritoneum: No abnormal intraperitoneal fluid. No free air. Ventral Wall: There is a tiny fat containing umbilical hernia. Abdominal Nodes: No retroperitoneal or mesenteric adenopathy by size criteria. Vessels: Aorta and inferior vena cava are normal in size. PELVIS: Pelvic Organs: Unremarkable. Bladder: Unremarkable. Pelvic Nodes: No enlarged lymph nodes. Miscellaneous: No hernias are seen. Bones: Unremarkable. IMPRESSION: 1. Possible mild colonic thickening involving the sigmoid colon although the appearance could be caused artifact from non distension. On the comparison CT dated 03/30/2021, the sigmoid colon has a similar appearance. 2. Mild diverticulosis without diverticulitis. 3. Cholelithiasis. No CT findings to suggest acute cholecystitis. Mild pancreatic duct dilation of uncertain etiology. If clinically indicated, MRCP may be obtained for follow-up. 4. No inguinal hernias. The result was discussed with Dr. Horne. Dictated by: Dustin Saha M.D. on 04/25/2021 at 22:42 Approved by: Dustin Saha M.D. on 04/25/2021 at 22:54
[2021-04-25 21:20] VITALS: BP 125/78; PULSE 48; RESP 16; O2SAT 98
[2021-04-25] MEDS: HYDROMORPHONE 1 MG INJ IV ×2 (21:26→23:01)
[2021-04-25 21:28] LABS: Add Manual Diff / Slide Review NO; Basophils Absolute Auto 100 /uL (0-100); Basophils Percent Auto 0.8 % (0-2); Eosinophils Absolute Auto 200 /uL (0-450); Eosinophils Percent Auto 1.9 % (2-4); Hematocrit 36.2 % (41-53); Hemoglobin 12.3 g/dL (13.5-17.5); Lymphocytes Absolute Auto 3400 /uL (1100-4500); Mean Corpuscular HGB Conc 34.1 % (30-36); Mean Corpuscular Hemoglobin 31.6 PG (26-34); Mean Corpuscular Volume 92.9 fL (80-100); Monocytes Absolute Auto 300 /uL (0-900); Monocytes Percent Auto 4.1 % (3-14); Neutrophils Absolute Auto 4500 /uL (1500-7000); Neutrophils Percent Auto 53.2 % (50-75); Platelet Count 357 X10^3/uL (150-400); Red Cell Distribution Width 12.8 % (11.6-14.8); White Blood Cell Count 8.5 X10^3/uL (4.5-11.0)
[2021-04-25 21:39] LABS: Alanine Aminotransferase 17 IU/L (<50); Albumin 4.1 g/dL (3.5-5.0); Albumin Globulin Ratio 1.9 (1.0-2.8); Alkaline Phosphatase 43 U/L (38-126); Aspartate Aminotransferase 21 IU/L (17-59); BUN Creatinine Ratio 18.5 (6-22); Bilirubin Total 0.4 mg/dL (0.2-1.3); Blood Urea Nitrogen 12 mg/dL (9-20); Calcium 9.2 mg/dL (8.4-10.2); Carbon Dioxide 31 mmol/L (22-32); Chloride 108 mmol/L (98-107); Estimated Glomerular Filt Rate > 60.0 mL/min (>60); Globulin 2.2 g/dL (1.7-4.1); Glucose 86 mg/dL (70-100); HEMOLYSIS < 15 (0-50); Lipase 95 U/L (23-300); Potassium 3.2 mmol/L (3.4-5.1); Sodium 142 mmol/L (137-145); Total Protein 6.3 g/dL (6.3-8.2)
[2021-04-25] MEDS: KETOROLAC 30 MG/ML VIAL 15 MG IV (22:17)
[2021-04-25 23:07] VITALS: BP 133/81; PULSE 48; RESP 16; O2SAT 98
== END 2021-04-25 23:09 | disposition home or self-care (01) ==
PROVIDERS: Emergency Medicine; Emergency Provider Emergency Medicine
DX: S39.013A Strain of muscle, fascia and tendon of pelvis, initial encounter (principal)
CPT/HCPCS: 36415; 74177; 76705; 80053; 81001; 83690; 85025; 96374; 96375; 96376; 99284; J1170; J1885; Q9967

== ENCOUNTER 2021-05-27 17:24 | Emergency (ER) | payer OTHER, MEDICAID, SELFPAY ==
[2021-05-27] VITALS (12 sets, daily range): BP systolic 106–145; BP diastolic 64–82; PULSE 41–69; RESP 14–19; TEMP 36.8; O2SAT 94–97; BMI 22.0
[2021-05-27 18:25] LABS: Add Manual Diff / Slide Review NO; Basophils Absolute Auto 0 /uL (0-100); Basophils Percent Auto 0.4 % (0-2); Eosinophils Absolute Auto 100 /uL (0-450); Eosinophils Percent Auto 1.7 % (2-4); Hematocrit 39.8 % (41-53); Hemoglobin 13.7 g/dL (13.5-17.5); Lymphocytes Absolute Auto 2600 /uL (1100-4500); Lymphocytes Percent Auto 33.6 % (25-40); Mean Corpuscular HGB Conc 34.5 % (30-36); Mean Corpuscular Hemoglobin 31.8 PG (26-34); Mean Corpuscular Volume 92.3 fL (80-100); Monocytes Absolute Auto 300 /uL (0-900); Monocytes Percent Auto 3.4 % (3-14); Neutrophils Absolute Auto 4700 /uL (1500-7000); Neutrophils Percent Auto 60.9 % (50-75); Platelet Count 459 X10^3/uL (150-400); Red Blood Cell Count 4.31 X10^6/uL (4.5-5.9); Red Cell Distribution Width 13.2 % (11.6-14.8); White Blood Cell Count 7.8 X10^3/uL (4.5-11.0)
[2021-05-27 18:35] LABS: Alanine Aminotransferase 21 IU/L (<50); Albumin 4.9 g/dL (3.5-5.0); Alkaline Phosphatase 36 U/L (38-126); Aspartate Aminotransferase 26 IU/L (17-59); BUN Creatinine Ratio 17.6 (6-22); Bilirubin Total 0.4 mg/dL (0.2-1.3); Blood Urea Nitrogen 12 mg/dL (9-20); Calcium 10.2 mg/dL (8.4-10.2); Carbon Dioxide 31 mmol/L (22-32); Chloride 104 mmol/L (98-107); Estimated Glomerular Filt Rate > 60.0 mL/min (>60); Globulin 2.4 g/dL (1.7-4.1); Glucose 84 mg/dL (70-100); HEMOLYSIS < 15 (0-50); Potassium 4.3 mmol/L (3.4-5.1); Sodium 142 mmol/L (137-145); Total Protein 7.3 g/dL (6.3-8.2)
--- NOTE | 2021-05-27 19:04 | DI.CT.S_ITS ---
PROCEDURE: CT ABDOMEN PELVIS W CON INDICATIONS: ?UC flare ? kidney stone TECHNIQUE: After the administration of intravenous contrast, axial sections acquired from the lung bases to the pubic symphysis. Coronal and sagittal reformats were performed. For radiation dose reduction, the following was used: automated exposure control, adjustment of mA and/or kV according to patient size. COMPARISON: [facility], CT, CT ABDOMEN PELVIS W CON, 04/25/2021, 21:35. FINDINGS: ABDOMEN: Lung bases: No acute findings. Heart: No pericardial effusion. Normal in size. Liver: Normal. Gallbladder: Decompressed otherwise unremarkable Bile ducts: Normal. Pancreas: Normal. Spleen: Normal. Adrenals: Normal. Kidneys and Ureters: Normal. Stomach and duodenum: Normal. Bowel: No evidence of bowel obstruction. Appendix is not clearly identified however no suspicious pericecal inflammatory changes are seen. Scattered colonic diverticula are noted. There is questionable mural thickening of the sigmoid colon although grossly unchanged appearance since 04/25/21. There is no definite pericolonic inflammatory fat stranding. Possible distal sigmoid/rectal wall thickening on image 73/2 although this area of bowel is decompressed and technically indeterminate. No abscess seen. Other: No free fluid or air. Abdominal nodes: Normal. Aorta and IVC: Normal in size. Ventral wall: Normal. PELVIS: Bladder and reproductive: Unremarkable. Inguinal region: No hernia. Pelvic nodes: Normal. Bones: No suspicious bony lesions. No vertebral body compression fractures. Diffuse spondylytic changes and facet disease. IMPRESSION: Overall, minimal interval change since 04/25/21. Possible sigmoid colon mural thickening which could reflect chronic diverticular disease, potentially acute on chronic diverticulitis. There is also possible mural thickening at the rectosigmoid junction however this segment of bowel is decompressed at the time of the study therefore limited evaluation. Further evaluation with lower endoscopy could be performed as clinically needed. Elsewhere, no acute abnormality seen. Dictated by: Vijay Conte M.D. on 05/27/2021 at 20:01 Approved by: Vijay Conte M.D. on 05/27/2021 at 20:06
--- NOTE | 2021-05-27 19:20 | ED.ABDPAIN ---
HPI - Abdominal Pain <Hernan Larson PA-C - Last Filed: 05/27/21 20:52> General Chief Complaint: Abdominal Pain Stated Complaint: Abd pain/bloody stool x2 days Time Seen by Provider: 05/27/21 18:09 History of Present Illness HPI narrative: 40-year-old male with past medical history chronic pain, status post left inguinal hernia repair, ulcerative colitis presents to the ED with 2 days of abdominal pain, bloody stools. Patient states his abdominal pain started as a diffuse pain yesterday, had 2 bowel movements this morning with tamia red blood. Endorses nausea. Denies fever, chills, shortness of breath, cough, chest pain, vomiting, dysuria, lightheadedness, dizziness, syncope. Patient states he was diagnosed with ulcerative colitis in August 2020, since then has not seen a GI specialist. He has an appointment to see a GI specialist in June. States he was not put on any medications after the diagnosis other than probiotics. Patient states that his symptoms currently are similar to the symptoms he had in August when he was diagnosed with UC. States he took some Tylenol, ibuprofen, hydrocodone with little relief. Had a right inguinal hernia repair in September 2020. Related Data Home Medications Medication Instructions Recorded Confirmed acetaminophen 325 mg capsule 650 mg PO Q6H PRN 06/21/20 10/30/20 (Tylenol) ibuprofen 400 mg tablet 400 mg PO Q8H PRN 06/21/20 10/30/20 lamotrigine 100 mg tablet 100 mg PO DAILY 06/21/20 10/30/20 (Lamictal) methocarbamol 750 mg tablet 750 mg PO BEDTIME 06/21/20 10/30/20 prazosin 2 mg capsule 2 mg PO BEDTIME 06/21/20 10/30/20 cetirizine 10 mg tablet 10 mg PO BID PRN 06/26/20 10/30/20 gabapentin 600 mg tablet 600 mg PO TID 06/26/20 10/30/20 methylphenidate HCl 10 mg tablet 10 mg PO BID 09/30/20 10/30/20 (Ritalin) Previous Rx's Medication Instructions Recorded hydrocodone 5 mg-acetaminophen 325 1 tab PO Q6H PRN #10 tab 11/16/19 mg tablet ([place]) docusate sodium 100 mg capsule 100 mg PO BID #20 cap 06/27/20 docusate sodium 100 mg capsule 100 mg PO BID #20 cap 09/30/20 oxycodone 5 mg tablet 5 mg PO Q6H PRN #30 tab 09/30/20 hyoscyamine sulfate 0.125 mg tablet 0.125 mg PO BID-QID PRN #20 tab 03/30/21 ondansetron 4 mg disintegrating 4 mg PO TID-QID PRN #10 tab 03/30/21 tablet Allergies Allergy/AdvReac Type Severity Reaction Status Date / Time amoxicillin Allergy Severe Anaphylaxis Verified 04/25/21 15:08 amitriptyline AdvReac Severe Agitated Verified 04/25/21 15:08 diphenhydramine AdvReac Severe Agitated Verified 04/25/21 15:08 [From Benadryl] haloperidol [From Haldol] AdvReac Severe Agitated Verified 04/25/21 15:08 Review of Systems <Hernan Larson PA-C - Last Filed: 05/27/21 20:52> Review of Systems ROS Unobtainable: All systems reviewed & are unremarkable except as noted in HPI and below Constitutional Constitutional: Denies chills, Denies fatigue, Denies fever(s), Denies frequent falls, Denies lethargy and Denies weakness Eyes Eyes: Denies change in vision, Denies eye discharge, Denies irritation and Denies loss of vision ENT Ears, Nose, Mouth, and Throat: Denies change in voice, Denies dizziness, Denies neck pain, Denies sore throat and Denies throat swelling Cardiovascular Cardiovascular: Denies chest pain, Denies irregular heart rhythm, Denies lightheadedness, Denies palpitations, Denies dyspnea, Denies dyspnea on exertion and Denies orthopnea Respiratory Respiratory: Denies cough, Denies dyspnea, Denies dyspnea on exertion and Denies wheezing Gastrointestinal Gastrointestinal: Reports abdominal pain, Reports hematochezia, Denies change in bowel habits, Denies diarrhea, Reports nausea and Denies vomiting Genitourinary Genitourinary: Denies hematuria, Denies flank pain, Denies urinary incontinence and Denies urinary urgency Musculoskeletal Musculoskeletal: Denies back pain, Denies muscle weakness, Denies neck pain, Denies numbness and Denies tingling Integumentary/Breasts Skin/Breast: Denies pruritus, Denies erythema, Denies rash and Denies wounds Neurologic Neurologic: Denies behavioral changes, Denies confusion, Denies dizziness, Denies frequent falls, Denies loss of vision, Denies numbness, Denies tingling and Denies weakness Psychiatric Psychiatric: Denies anxiety, Denies behavioral changes, Denies confusion, Denies depression, Denies homicidal ideation and Denies suicidal ideation Endocrine Endocrine: Denies fatigue, Denies flushing and Denies palpitations Hematologic/Lymphatic Hematologic/Lymphatic: Denies easy bruising Allergic/Immunologic Allergic/Immunologic: Denies urticaria, Denies throat swelling and Denies wheezing Patient History <Hernan Larson PA-C - Last Filed: 05/27/21 20:52> Medical History Anxiety Chronic pain Compression fracture Depression Head injury Neuropathy PTSD (post-traumatic stress disorder) Surgical History History of appendectomy Social History marital status: household members: spouse occupational status: disabled Smoking Status: Former smoker alcohol intake: former substance use type: marijuana Smoking Status: Former smoker tobacco type: cigarettes alcohol intake frequency: 0-2 drinks per day Substance Use Type: marijuana Exam <Hernan Larson PA-C - Last Filed: 05/27/21 20:52> Initial Vital Signs Initial Vital Signs: Vital Signs Temperature 98.2 F 05/27/21 17:55 Pulse Rate 69 05/27/21 17:55 Respiratory Rate 16 05/27/21 17:55 Blood Pressure 136/68 05/27/21 17:55 Pulse Oximetry 97 05/27/21 17:55 Const General: cooperative and anxious HENWA Head: normal to inspection Eyes General: appearance normal, both eyes and all related structures Neck Neck: normal visual inspection Chest Chest: normal inspection of the chest Resp Effort & Inspection: normal respiratory effort Auscultation: clear to auscultation bilaterally Cardio Rate: regular rate Rhythm: regular rhythm GI Inspection: normal to inspection Other: Abdomen is soft, nondistended. Abdomen diffusely tender to palpation. Bilateral CVA tenderness. General: CVA tenderness Neuro General: patient alert, patient awake and patient oriented x3 <Tee Ohara DO - Last Filed: 05/28/21 07:14> Initial Vital Signs Initial Vital Signs: Vital Signs Temperature 98.2 F 05/27/21 17:55 Pulse Rate 69 05/27/21 17:55 Respiratory Rate 16 05/27/21 17:55 Blood Pressure 136/68 05/27/21 17:55 Pulse Oximetry 97 05/27/21 17:55 Course <Hernan Larson PA-C - Last Filed: 05/27/21 20:52> Course Course Narrative: Labs, CT abdomen pelvis without acute findings. Patient's symptoms improved with pain medications. Will discharge home with ED return precautions. Patient will keep his GI follow-up appointment that is scheduled for June. Orders Ordered: Discontinued Medications Hyoscyamine (Hyoscyamine 0.125 Mg Tablet) 0.125 mg PO NOW ONE Stop: 05/27/21 19:35 Last Admin: 05/27/21 19:58 Dose: 0.125 mg Documented by: IVANA Ibuprofen (Ibuprofen 400 Mg Tablet) 600 mg PO NOW ONE Stop: 05/27/21 21:01 Last Admin: 05/27/21 21:05 Dose: 600 mg Documented by: IVANA Morphine Sulfate (Morphine 4 Mg/Ml Inj) 4 mg IV NOW ONE Stop: 05/27/21 19:06 Last Admin: 05/27/21 19:30 Dose: 4 mg Documented by: IVANA Ondansetron HCl (Ondansetron 4 Mg/2 Ml Inj) 4 mg IV NOW ONE Stop: 05/27/21 19:31 Last Admin: 05/27/21 19:46 Dose: 4 mg Documented by: IVANA Vital Signs Vital signs: Vital Signs - 8 hr 05/27/21 17:55 05/27/21 18:07 05/27/21 18:09 Temperature 98.2 F Pulse Rate 69 59 L 60 Respiratory Rate 16 14 Blood Pressure 136/68 133/79 Pulse Oximetry 97 94 96 05/27/21 18:30 05/27/21 19:00 05/27/21 19:01 Temperature Pulse Rate 51 L 55 L 54 L Respiratory Rate 17 18 18 Blood Pressure 123/66 145/81 H Pulse Oximetry 95 96 97 05/27/21 19:30 05/27/21 19:38 05/27/21 20:00 Temperature Pulse Rate 45 L 50 L 43 L Respiratory Rate 18 19 Blood Pressure 129/68 Pulse Oximetry 97 97 95 05/27/21 20:01 05/27/21 20:30 Temperature Pulse Rate 45 L 43 L Respiratory Rate 18 19 Blood Pressure 121/74 116/82 Pulse Oximetry 94 95 <Tee Ohara DO - Last Filed: 05/28/21 07:14> Orders Ordered: Discontinued Medications Hyoscyamine (Hyoscyamine 0.125 Mg Tablet) 0.125 mg PO NOW ONE Stop: 05/27/21 19:35 Last Admin: 05/27/21 19:58 Dose: 0.125 mg Documented by: IVANA Ibuprofen (Ibuprofen 400 Mg Tablet) 600 mg PO NOW ONE Stop: 05/27/21 21:01 Last Admin: 05/27/21 21:05 Dose: 600 mg Documented by: IVANA Morphine Sulfate (Morphine 4 Mg/Ml Inj) 4 mg IV NOW ONE Stop: 05/27/21 19:06 Last Admin: 05/27/21 19:30 Dose: 4 mg Documented by: IVANA Ondansetron HCl (Ondansetron 4 Mg/2 Ml Inj) 4 mg IV NOW ONE Stop: 05/27/21 19:31 Last Admin: 05/27/21 19:46 Dose: 4 mg Documented by: IVANA Vital Signs Vital signs: Vital Signs - 8 hr 05/27/21 17:55 05/27/21 18:07 05/27/21 18:09 Temperature 98.2 F Pulse Rate 69 59 L 60 Respiratory Rate 16 14 Blood Pressure 136/68 133/79 Pulse Oximetry 97 94 96 05/27/21 18:30 05/27/21 19:00 05/27/21 19:01 Temperature Pulse Rate 51 L 55 L 54 L Respiratory Rate 17 18 18 Blood Pressure 123/66 145/81 H Pulse Oximetry 95 96 97 05/27/21 19:30 05/27/21 19:38 05/27/21 20:00 Temperature Pulse Rate 45 L 50 L 43 L Respiratory Rate 18 19 Blood Pressure 129/68 Pulse Oximetry 97 97 95 05/27/21 20:01 05/27/21 20:30 Temperature Pulse Rate 45 L 43 L Respiratory Rate 18 19 Blood Pressure 121/74 116/82 Pulse Oximetry 94 95 MDM - Abdominal Pain <Hernan Larson PA-C - Last Filed: 05/27/21 20:52> Lab Data Lab results narrative: Labs WNL Result diagrams: 05/27/21 18:15 05/27/21 18:15 Labs: Lab Results 05/27/21 05/27/21 05/27/21 Range/Units 18:15 18:15 18:15 WBC 7.8 (4.5-11.0) X10^3/uL RBC 4.31 L (4.5-5.9) X10^6/uL Hgb 13.7 (13.5-17.5) g/dL Hct 39.8 L (41-53) % MCV 92.3 (80-100) fL MCH 31.8 (26-34) PG MCHC 34.5 (30-36) % RDW 13.2 (11.6-14.8) % Plt Count 459 H (150-400) X10^3/uL Neut % (Auto) 60.9 (50-75) % Lymph % (Auto) 33.6 (25-40) % [place] % (Auto) 3.4 (3-14) % Eos % (Auto) 1.7 L (2-4) % Baso % (Auto) 0.4 (0-2) % Neut # (Auto) 4700 (7082-4649) /uL Lymph # (Auto) 2600 (4576-2004) /uL [place] # (Auto) 300 (0-900) /uL Eos # (Auto) 100 (0-450) /uL Baso # (Auto) 0 (0-100) /uL Sodium 142 (137-145) mmol/L Potassium 4.3 (3.4-5.1) mmol/L Chloride 104 (98-107) mmol/L Carbon Dioxide 31 (22-32) mmol/L BUN 12 (9-20) mg/dL Creatinine 0.68 (0.66-1.25) mg/dL Estimated GFR > 60.0 (>60) mL/min BUN/Creatinine Ratio 17.6 (6-22) Glucose 84 (70-100) mg/dL Lactate 0.9 (0.7-2.1) mmol/L Calcium 10.2 (8.4-10.2) mg/dL Total Bilirubin 0.4 (0.2-1.3) mg/dL AST 26 (17-59) IU/L ALT 21 (<50) IU/L Alkaline Phosphatase 36 L (38-126) U/L Total Protein 7.3 (6.3-8.2) g/dL Albumin 4.9 (3.5-5.0) g/dL Globulin 2.4 (1.7-4.1) g/dL Albumin/Globulin Ratio 2.0 (1.0-2.8) Lipase (23-300) U/L /16/ Range/Units 18:15 WBC (4.5-11.0) X10^3/uL RBC (4.5-5.9) X10^6/uL Hgb (13.5-17.5) g/dL Hct (41-53) % MCV (80-100) fL MCH (26-34) PG MCHC (30-36) % RDW (11.6-14.8) % Plt Count (150-400) X10^3/uL Neut % (Auto) (50-75) % Lymph % (Auto) (25-40) % [place] % (Auto) (3-14) % Eos % (Auto) (2-4) % Baso % (Auto) (0-2) % Neut # (Auto) (9401-1506) /uL Lymph # (Auto) (0144-0030) /uL [place] # (Auto) (0-900) /uL Eos # (Auto) (0-450) /uL Baso # (Auto) (0-100) /uL Sodium (137-145) mmol/L Potassium (3.4-5.1) mmol/L Chloride (98-107) mmol/L Carbon Dioxide (22-32) mmol/L BUN (9-20) mg/dL Creatinine (0.66-1.25) mg/dL Estimated GFR (>60) mL/min BUN/Creatinine Ratio (6-22) Glucose (70-100) mg/dL Lactate (0.7-2.1) mmol/L Calcium (8.4-10.2) mg/dL Total Bilirubin (0.2-1.3) mg/dL AST (17-59) IU/L ALT (<50) IU/L Alkaline Phosphatase (38-126) U/L Total Protein (6.3-8.2) g/dL Albumin (3.5-5.0) g/dL Globulin (1.7-4.1) g/dL Albumin/Globulin Ratio (1.0-2.8) Lipase 157 (23-300) U/L Point of care testing: Urine Dip Bedside Urine Glucose Negative Bedside Urine Bilirubin - Negative Bedside Urine Ketone - Negative Urine Specific [place] 1.015 Bedside Urine Occult Blood - Negative Bedside Urine pH 7.5 Bedside Urine Protein - Negative Bedside Urine Urobilinogen - Negative Bedside Urine Nitrite - Negative Bedside Urine Leukocytes - Negative Esterase Imaging Data CT scan - abdomen/pelvis: Radiologist's Impression: PROCEDURE:? CT ABDOMEN PELVIS W CON ? INDICATIONS:? ?UC flare ? kidney stone ? TECHNIQUE:? After the administration of intravenous contrast, axial sections acquired from the lung bases to the pubic symphysis.? Coronal and sagittal reformats were performed.? For radiation dose reduction, the following was used:? automated exposure control, adjustment of mA and/or kV according to patient size.? ? COMPARISON:? [facility], CT, CT ABDOMEN PELVIS W CON, 04/25/2021, 21:35. ? FINDINGS: ABDOMEN:? Lung bases:? No acute findings. Heart:? No pericardial effusion. Normal in size.? ? Liver: Normal. Gallbladder:? Decompressed otherwise unremarkable Bile ducts: Normal. Pancreas: Normal.? Spleen: Normal.? Adrenals: Normal. Kidneys and Ureters:? Normal. Stomach and duodenum: Normal. Bowel:? No evidence of bowel obstruction. Appendix is not clearly identified however no suspicious pericecal inflammatory changes are seen.? Scattered colonic diverticula are noted.? There is questionable mural thickening of the sigmoid colon although grossly unchanged appearance since 04/25/21.? There is no definite pericolonic inflammatory fat stranding.? Possible distal sigmoid/rectal wall thickening on image 73/2 although this area of bowel is decompressed and technically indeterminate.? No abscess seen. Other:? No free fluid or air.? Abdominal nodes:? Normal. Aorta and IVC: Normal in size.? ? Ventral wall: Normal. ? PELVIS:? ? Bladder and reproductive: Unremarkable.? Inguinal region: No hernia.? Pelvic nodes: Normal.? ? Bones:? No suspicious bony lesions.? No vertebral body compression fractures. Diffuse spondylytic changes and facet disease. ? ? IMPRESSION:? ? Overall, minimal interval change since 04/25/21.? Possible sigmoid colon mural thickening which could reflect chronic diverticular disease, potentially acute on chronic diverticulitis.? There is also possible mural thickening at the rectosigmoid junction however this segment of bowel is decompressed at the time of the study therefore limited evaluation.? Further evaluation with lower endoscopy could be performed as clinically needed. ? Elsewhere, no acute abnormality seen. ? Dictated by: Vijay Conte M.D. on 05/27/2021 at 20:01 ? ? Approved by: Vijay Conte M.D. on 05/27/2021 at 20:06 ? MDM Narrative Medical decision making narrative: 40-year-old male with past medical history chronic pain, status post left inguinal hernia repair, ulcerative colitis presents to the ED with 2 days of abdominal pain, bloody stools. Concern for bowel obstruction versus UC flare versus diverticulitis versus enteric colitis versus hemorrhoids. Will order labs, CT abdomen pelvis, lipase, lactate, UA. Will give morphine, Levsin for pain. Will reassess. <Tee Ohraa, - Last Filed: 05/28/21 07:14> Lab Data Labs: Lab Results 05/27/21 05/27/21 05/27/21 Range/Units 18:15 18:15 18:15 WBC 7.8 (4.5-11.0) X10^3/uL RBC 4.31 L (4.5-5.9) X10^6/uL Hgb 13.7 (13.5-17.5) g/dL Hct 39.8 L (41-53) % MCV 92.3 (80-100) fL MCH 31.8 (26-34) PG MCHC 34.5 (30-36) % RDW 13.2 (11.6-14.8) % Plt Count 459 H (150-400) X10^3/uL Neut % (Auto) 60.9 (50-75) % Lymph % (Auto) 33.6 (25-40) % [place] % (Auto) 3.4 (3-14) % Eos % (Auto) 1.7 L (2-4) % Baso % (Auto) 0.4 (0-2) % Neut # (Auto) 4700 (2235-4152) /uL Lymph # (Auto) 2600 (8616-4094) /uL [place] # (Auto) 300 (0-900) /uL Eos # (Auto) 100 (0-450) /uL Baso # (Auto) 0 (0-100) /uL Sodium 142 (137-145) mmol/L Potassium 4.3 (3.4-5.1) mmol/L Chloride 104 (98-107) mmol/L Carbon Dioxide 31 (22-32) mmol/L BUN 12 (9-20) mg/dL Creatinine 0.68 (0.66-1.25) mg/dL Estimated GFR > 60.0 (>60) mL/min BUN/Creatinine Ratio 17.6 (6-22) Glucose 84 (70-100) mg/dL Lactate 0.9 (0.7-2.1) mmol/L Calcium 10.2 (8.4-10.2) mg/dL Total Bilirubin 0.4 (0.2-1.3) mg/dL AST 26 (17-59) IU/L ALT 21 (<50) IU/L Alkaline Phosphatase 36 L (38-126) U/L Total Protein 7.3 (6.3-8.2) g/dL Albumin 4.9 (3.5-5.0) g/dL Globulin 2.4 (1.7-4.1) g/dL Albumin/Globulin Ratio 2.0 (1.0-2.8) Lipase (23-300) U/L // Range/Units 18:15 WBC (4.5-11.0) X10^3/uL RBC (4.5-5.9) X10^6/uL Hgb (13.5-17.5) g/dL Hct (41-53) % MCV (80-100) fL MCH (26-34) PG MCHC (30-36) % RDW (11.6-14.8) % Plt Count (150-400) X10^3/uL Neut % (Auto) (50-75) % Lymph % (Auto) (25-40) % [place] % (Auto) (3-14) % Eos % (Auto) (2-4) % Baso % (Auto) (0-2) % Neut # (Auto) (1430-0920) /uL Lymph # (Auto) (3722-4245) /uL [place] # (Auto) (0-900) /uL Eos # (Auto) (0-450) /uL Baso # (Auto) (0-100) /uL Sodium (137-145) mmol/L Potassium (3.4-5.1) mmol/L Chloride (98-107) mmol/L Carbon Dioxide (22-32) mmol/L BUN (9-20) mg/dL Creatinine (0.66-1.25) mg/dL Estimated GFR (>60) mL/min BUN/Creatinine Ratio (6-22) Glucose (70-100) mg/dL Lactate (0.7-2.1) mmol/L Calcium (8.4-10.2) mg/dL Total Bilirubin (0.2-1.3) mg/dL AST (17-59) IU/L ALT (<50) IU/L Alkaline Phosphatase (38-126) U/L Total Protein (6.3-8.2) g/dL Albumin (3.5-5.0) g/dL Globulin (1.7-4.1) g/dL Albumin/Globulin Ratio (1.0-2.8) Lipase 157 (23-300) U/L Point of care testing: Urine Dip Bedside Urine Glucose Negative Bedside Urine Bilirubin - Negative Bedside Urine Ketone - Negative Urine Specific [place] 1.015 Bedside Urine Occult Blood - Negative Bedside Urine pH 7.5 Bedside Urine Protein - Negative Bedside Urine Urobilinogen - Negative Bedside Urine Nitrite - Negative Bedside Urine Leukocytes - Negative Esterase Discharge Plan Departure Patient Disposition: Home Clinical Impression: Abdominal pain Instructions: DI for Abdominal Pain-Adult Activity Restrictions/Additional Instructions: You were evaluated for abdominal pain and bloody stools in the ED today. Your labs and CT abdomen pelvis were normal. Your symptoms improved with the pain medications. You may continue to take Tylenol and ibuprofen for your symptoms. Please follow-up with your GI as soon as possible. Return to the ED if your symptoms worsen, you experience fever, chills, nausea, vomiting. Prescriptions: No Action methocarbamol 750 mg tablet 750 mg PO BEDTIME 0RF ibuprofen 400 mg tablet 400 mg PO Q8H PRN (Reason: Pain) 0RF acetaminophen [Tylenol] 325 mg capsule 650 mg PO Q6H PRN (Reason: Pain) 0RF lamotrigine [Lamictal] 100 mg tablet 100 mg PO DAILY 0RF prazosin 2 mg capsule 2 mg PO BEDTIME 0RF docusate sodium 100 mg capsule 100 mg PO BID Qty: 20 0RF methylphenidate HCl [Ritalin] 10 mg Tablet 10 mg PO BID 0RF oxycodone 5 mg tablet 5 mg PO Q6H PRN (Reason: post operative pain) Qty: 30 0RF docusate sodium 100 mg capsule 100 mg PO BID Qty: 20 0RF hyoscyamine sulfate 0.125 mg tablet 0.125 mg PO BID-QID PRN (Reason: dyspepsia) Qty: 20 0RF ondansetron 4 mg tablet,disintegrating 4 mg PO TID-QID PRN (Reason: nausea and vomiting) Qty: 10 0RF hydrocodone-acetaminophen [[place]] 5-325 mg tablet 1 tab PO Q6H PRN (Reason: pain) Qty: 10 0RF gabapentin 600 mg tablet 600 mg PO TID 0RF cetirizine 10 mg tablet 10 mg PO BID PRN (Reason: Allergy Symptoms) 0RF <Tee Ohara, DO - Last Filed: 05/28/21 07:14> [facility] Dr Ohara Co-Sign Statement: I was available for consultation during this patient's emergency department visit. This chart is signed by myself for administrative purposes only. I did not have direct contact with this patient during this visit. They were seen independently by the APC.
[2021-05-27 19:21] LABS: Lipase 157 U/L (23-300)
[2021-05-27 19:22] LABS: Lactate (Lactic Acid) 0.9 mmol/L (0.7-2.1)
[2021-05-27] MEDS: MORPHINE 4 MG/ML INJ IV (19:30)
[2021-05-27] MEDS: ONDANSETRON 4 MG/2 ML INJ IV (19:46)
[2021-05-27] MEDS: HYOSCYAMINE 0.125 MG TABLET PO (19:58)
[2021-05-27] MEDS: IBUPROFEN 400 MG TABLET 600 MG PO (21:05)
== END 2021-05-27 21:15 | disposition home or self-care (01) ==
PROVIDERS: Emergency Medicine; Emergency Provider Student in an Organized Health Care Education/Training Program
DX: K92.1 Melena (principal); R10.9 Unspecified abdominal pain
CPT/HCPCS: 36415; 74177; 80053; 81003; 83605; 83690; 85025; 93005; 96374; 96375; 99284; J2270; J2405; Q9967

== ENCOUNTER 2021-06-08 14:40 | Emergency (ER) | payer OTHER, MEDICAID, SELFPAY ==
[2021-06-08 14:43] VITALS: BP 131/64; PULSE 61; RESP 16; TEMP 36.6; O2SAT 100
--- NOTE | 2021-06-08 14:55 | DI.CT.S_ITS ---
PROCEDURE: CT CERVICAL SPINE WO CON INDICATIONS: fall TECHNIQUE: Noncontrast 3 mm thick sections acquired from the skull base to the T4 level. Sagittal and coronal reformats were then constructed. For radiation dose reduction, the following was used: automated exposure control, adjustment of mA and/or kV according to patient size. COMPARISON: [facility], CT, CT CERVICAL SPINE WO CON, 10/19/2016, 13:34. [facility], CT, CT CERVICAL SPINE WO CON, 04/07/2017, 13:47. [facility], CT, CT CERVICAL SPINE WITHOUT CONTRAST, 11/14/2017, 9:34. [facility], CT, CT HEAD/BRAIN WO CON, 06/08/2021, 15:13. [facility], CT, CT LUMBAR SPINE WO CON, 06/08/2021, 15:13. [facility], CT, CT CERVICAL SPINE WO CON, 11/15/2019, 20:08. FINDINGS: Image quality: This examination is somewhat limited by quantum mottle artifact. Bones: No fractures or dislocations. Visualized superior ribs are intact. There is reversal of the normal cervical lordosis. Premature cervical spine degenerative changes are seen, which are worst at the C4-C5 and C6-C7 levels. Posteriorly directed endplate osteophytes are seen at C6-C7. Soft tissues: Prevertebral soft tissues are normal in thickness. No paravertebral hematomas. No apical pneumothoraces. IMPRESSION: Negative for acute fracture. Premature cervical spine degenerative changes are seen, which are worst at C4-C5 and C6-C7. Reversal of the normal cervical lordosis is seen. This is commonly observed in patients with muscular spasm. Dictated by: Fady Muhammad M.D. on 06/08/2021 at 14:25 Approved by: Fady Muhammad M.D. on 06/08/2021 at 14:27
--- NOTE | 2021-06-08 14:55 | DI.CT.S_ITS ---
PROCEDURE: CT LUMBAR SPINE WO CON INDICATIONS: fall TECHNIQUE: Noncontrast 3 mm thick sections acquired from the T12 level to the sacrum. Sagittal and coronal reformats were constructed. For radiation dose reduction, the following was used: automated exposure control. COMPARISON: None. FINDINGS: Image quality: Excellent. Bones: There is normal bony alignment. No acute vertebral body compression fractures. No suspicious lytic or blastic bony lesions. No pars defects. T12-L1: Normal. L1-L2: Normal. L2-L3: Normal. L3-L4: The disc height is well preserved. Disc bulge can be seen. Mild bilateral neural foraminal narrowing is seen. Mild central canal narrowing is seen. L4-L5: The disc height is well preserved. Mild to moderate disc bulge is seen. There is a superimposed central disc protrusion. There is [id number] right-sided and moderate left-sided neural foraminal narrowing seen. Mild central canal narrowing is seen. L5-S1: There is focal calcification seen along the left and left posterior aspects of the annulus fibrosus, as on series 2 image 73. There is associated moderate to severe left-sided neural foraminal narrowing. No significant right-sided neural foraminal narrowing is seen. Mild facet joint hypertrophy is seen. Soft tissues: No retroperitoneal masses or hematomas. Visualized aorta is normal in caliber. There is wall thickening seen involving the sigmoid colon, which appears slightly improved compared to the 05/27/2021 CT examination. IMPRESSION: No acute posttraumatic abnormality is seen. Premature degenerative changes are seen, which are worst at L5-S1. Slightly improved wall thickening seen involving the sigmoid colon compared to the recent prior CT examination. Dictated by: Fady Muhammad M.D. on 06/08/2021 at 14:27 Approved by: Fady Muhammad M.D. on 06/08/2021 at 14:32
--- NOTE | 2021-06-08 14:55 | DI.CT.S_ITS ---
PROCEDURE: CT HEAD/BRAIN WO CON INDICATIONS: fall TECHNIQUE: Noncontrast 4.5 mm thick angled axial sections acquired from the foramen magnum to the vertex, with coronal and sagittal reformats. For radiation dose reduction, the following was used: automated exposure control, adjustment of mA and/or kV according to patient size. COMPARISON: [facility], CT, CT BRAIN WO CON, 10/19/2016, 13:34. [facility], CT, CT CERVICAL SPINE WO CON, 06/08/2021, 15:13. [facility], CT, CT LUMBAR SPINE WO CON, 06/08/2021, 15:13. [facility], CT, CT HEAD/BRAIN WO CON, 11/15/2019, 20:08. FINDINGS: Image quality: Mild streak artifact can be seen through the skull base. CSF spaces: Basal cisterns are patent. No extra-axial fluid collections. Ventricles are normal in size and shape. Brain: No midline shift. No intracranial masses or hemorrhage. Gold-white matter interface is normal. Skull and face: Calvarium and visualized facial bones are intact, without suspicious lesions. Sinuses: Visualized sinuses and mastoids are clear. IMPRESSION: No acute intracranial hemorrhage is seen. No acute intracranial process is seen. No displaced calvarial fracture can be seen. Dictated by: Fady Muhammad M.D. on 06/08/2021 at 14:23 Approved by: Fady Muhammad M.D. on 06/08/2021 at 14:25
--- NOTE | 2021-06-08 17:38 | ED.BACK ---
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 He states he fell backwards flat on his back onto a wooden floor. Patient states he thinks he hit his head but does not think he got knocked out. He does not have a headache at this time. He has some cervical pain but states that actually been improving. He also has some lower lumbar pain states this is where the majority of his pain is. He has had chronic back issues and typically takes oxycodone twice daily, gabapentin and methocarbamol for his back. He also takes several psychiatric medications. He has had chronic back issues but states he has new numbness and tingling down his left leg. He has pain radiating down both legs. He has not any bowel or bladder incontinence or loss of sensation. No saddle anesthesia. Patient has been told he had bulging discs in the past. He has had hernia repair in the past. No prior back surgeries. He does have allergies to amoxicillin as well as amitriptyline, Benadryl and Haldol. He is accompanied by his . He denies any chest pain or shortness of breath. No nausea or vomiting. No abdominal pain. He had a painful loose bowel movement earlier today. He has not had any urinary changes. Related Data Home Medications Medication Instructions Recorded Confirmed acetaminophen 325 mg capsule 650 mg PO Q6H PRN 06/21/20 10/30/20 (Tylenol) ibuprofen 400 mg tablet 400 mg PO Q8H PRN 06/21/20 10/30/20 lamotrigine 100 mg tablet 100 mg PO DAILY 06/21/20 10/30/20 (Lamictal) methocarbamol 750 mg tablet 750 mg PO BEDTIME 06/21/20 10/30/20 prazosin 2 mg capsule 2 mg PO BEDTIME 06/21/20 10/30/20 cetirizine 10 mg tablet 10 mg PO BID PRN 06/26/20 10/30/20 gabapentin 600 mg tablet 600 mg PO TID 06/26/20 10/30/20 methylphenidate HCl 10 mg tablet 10 mg PO BID 09/30/20 10/30/20 (Ritalin) Previous Rx's Medication Instructions Recorded hydrocodone 5 mg-acetaminophen 325 1 tab PO Q6H PRN #10 tab 11/16/19 mg tablet (Ephrata) docusate sodium 100 mg capsule 100 mg PO BID #20 cap 06/27/20 docusate sodium 100 mg capsule 100 mg PO BID #20 cap 09/30/20 oxycodone 5 mg tablet 5 mg PO Q6H PRN #30 tab 09/30/20 hyoscyamine sulfate 0.125 mg tablet 0.125 mg PO BID-QID PRN #20 tab 03/30/21 ondansetron 4 mg disintegrating 4 mg PO TID-QID PRN #10 tab 03/30/21 tablet diazepam 10 mg tablet (Valium) 10 mg PO TID PRN #10 tab 06/08/21 hydrocodone 5 mg-acetaminophen 325 1 tab PO Q6H PRN #10 tab 06/08/21 mg tablet Allergies Allergy/AdvReac Type Severity Reaction Status Date / Time amoxicillin Allergy Severe Anaphylaxis Verified 04/25/21 15:08 amitriptyline AdvReac Severe Agitated Verified 04/25/21 15:08 diphenhydramine AdvReac Severe Agitated Verified 04/25/21 15:08 [From Benadryl] haloperidol [From Haldol] AdvReac Severe Agitated Verified 04/25/21 15:08 Review of Systems Review of Systems ROS Unobtainable: All systems reviewed & are unremarkable except as noted in HPI and below Patient History Medical History Anxiety Chronic pain Compression fracture Depression Head injury Neuropathy PTSD (post-traumatic stress disorder) Surgical History History of appendectomy Social History marital status: household members: spouse occupational status: disabled Smoking Status: Former smoker alcohol intake: former substance use type: marijuana Smoking Status: Former smoker tobacco type: cigarettes alcohol intake frequency: 0-2 drinks per day Substance Use Type: marijuana Exam Narrative Exam Narrative: GEN: well nourished, well appearing male, alert and oriented x 3, patient appears to be in mild distress. HEENT: Atraumatic, pupils are equal round reactive to light, extraocular movements are intact, nares are clear. Throat is clear without any exudates, erythema, tonsillar enlargement or uvular deviation, no facial droop. HEART: Regular rate and rhythm without murmur, clicks, rubs. Pulses are equal in upper and lower extremities LUNGS:Lungs clear to auscultation, no wheezes, rales, crackles, chest moves symmetrically ABD:bowel sounds normal, soft, non-tender, no guarding, rebound, rigidity, no masses noted, no hepatosplenomegaly :No CVA tenderness BACK: No cervical, thoracic or lumbar vertebral point tenderness. Patient has mildly decreased range of motion. Rectal exam is deferred. Muscle strength is 5/5 in lower extremities, DTRs are 2/4 and lower extremities. Dorsalis pedis and tibialis pulses are 2+ and lower extremities. Sensation is intact in the lower extremities. MSCL: Non-tender, no muscle atrophy, muscles strength 5/5 upper and lower extremities, full range of motion NEURO:CN 2-12 intact, sensation normal. Initial Vital Signs Initial Vital Signs: Vital Signs Temperature 97.8 F 06/08/21 14:43 Pulse Rate 61 06/08/21 14:43 Respiratory Rate 16 06/08/21 14:43 Blood Pressure 131/64 06/08/21 14:43 Pulse Oximetry 100 06/08/21 14:43 Course Orders Ordered: ED Orders 06/08/21 14:55 CT cervical spine wo con Stat CT head/brain wo con Stat CT lumbar spine wo con Stat Discontinued Medications Hydrocodone Bitart/Acetaminophen (Hydrocodone/Acet 5/325 Prepack) 1 bottle MISC SEEINSTR ONE Stop: 06/08/21 18:33 Diazepam (Diazepam 5 Mg Tablet) 10 mg PO NOW ONE Stop: 06/08/21 18:00 Last Admin: 06/08/21 18:17 Dose: 10 mg Documented by: Ketorolac Tromethamine (Ketorolac 30 Mg/Ml Vial) 30 mg IM NOW ONE Stop: 06/08/21 18:00 Last Admin: 06/08/21 18:17 Dose: 30 mg Documented by: Vital Signs Vital signs: Vital Signs - 8 hr 06/08/21 14:43 Temperature 97.8 F Pulse Rate 61 Respiratory Rate 16 Blood Pressure 131/64 Pulse Oximetry 100 MDM - Back Pain/Injury Imaging Data CT scan - head: Radiologist's Impression: Close Lumbar Spine CT (Signed) Fady Muhammad - 06/08/[address] (Signed) Fady Muhammad - 06/08/[address] (Signed) Fady Muhammad - 06/08/21 Abdomen/Pelvis CT (Signed) Vijay Conte - 05/27/21 Abdomen/Pelvis CT (Signed) Maria AMatychacorta - 04/25/21 Abdomen Ultrasound (Signed) Srikanth Gonzales - 04/25/21 Abdomen/Pelvis CT (Signed) Srikanth Gonzales - 03/30/21 Chest/Abdomen X-ray (Signed) Srikanth Gonzales - 03/30/21 Abdomen/Pelvis CT (Signed) Fady Muhammad - 10/07/20 Thoracic Spine X-Ray (Signed) Jennifer Rodriguez - 02/12/20 Lumbar Spine X-Ray (Signed) Jennifer Rodriguez - 02/12/20 Foot X-Ray (Signed) Agapito Beauchamp - 12/26/[address] (Signed) Vijay Conte - 11/15/19 Chest/Abdomen/Pelvis CT (Signed) Vijay Conte - 11/15/[address] (Signed) Vijay Conte - 11/15/19 Launch?[place] [address] CT Scan Report Signed Patient: Tee Greenberg MR#: [id number] : 1980 Acct:[id number] Age/Sex: 40 / M Date of Service: 06/08/21 Loc: ED Accession Number: [id number] ?? Procedure: CT head/brain wo con Ordering Provider: Anais Ferrer D.O. PROCEDURE:? CT HEAD/BRAIN WO CON ? INDICATIONS:? fall ? TECHNIQUE:? Noncontrast 4.5 mm thick angled axial sections acquired from the foramen magnum to the vertex, with coronal and sagittal reformats.? For radiation dose reduction, the following was used:? automated exposure control, adjustment of mA and/or kV according to patient size.? ? COMPARISON:? [facility], CT, CT BRAIN WO CON, 10/19/2016, 13:34.? [facility], CT, CT CERVICAL SPINE WO CON, 06/08/2021, 15:13.? [facility], CT, CT LUMBAR SPINE WO CON, 06/08/2021, 15:13.? [facility], CT, CT HEAD/BRAIN WO CON, 11/15/2019, 20:08. ? FINDINGS:? Image quality:? Mild streak artifact can be seen through the skull base. ? CSF spaces:? Basal cisterns are patent.? No extra-axial fluid collections.? Ventricles are normal in size and shape.? ? Brain:? No midline shift.? No intracranial masses or hemorrhage.? Gold-white matter interface is normal.? ? Skull and face:? Calvarium and visualized facial bones are intact, without suspicious lesions.? ? Sinuses:? Visualized sinuses and mastoids are clear.? IMPRESSION:? No acute intracranial hemorrhage is seen.? ? No acute intracranial process is seen.? ? No displaced calvarial fracture can be seen. ? ? Dictated by: Fady Muhammad M.D. on 06/08/2021 at 14:23 ? ? Approved by: Fady Muhammad M.D. on 06/08/2021 at 14:25?? CT - cervical spine: Radiologist's Impression: Tee Greenberg??40??M??1980 ? Allergy/Adv: amoxicillin, amitriptyline, diphenhydramine, haloperidol (More??) Close Lumbar Spine CT (Signed) Fady Muhammad - 06/08/[address] (Signed) Fady Muhammad - 06/08/[address] (Signed) Fady Muhammad - 06/08/21 Abdomen/Pelvis CT (Signed) Vijay Conte - 05/27/21 Abdomen/Pelvis CT (Signed) Dewayne Saha - 04/25/21 Abdomen Ultrasound (Signed) Srikanth Gonzales - 04/25/21 Abdomen/Pelvis CT (Signed) Srikanth Gonzales - 03/30/21 Chest/Abdomen X-ray (Signed) Srikanth Gonzales - 03/30/21 Abdomen/Pelvis CT (Signed) Fady Muhammad - 10/07/20 Thoracic Spine X-Ray (Signed) Jennifer Rodriguez - 02/12/20 Lumbar Spine X-Ray (Signed) Jennifer Rodriguez - 02/12/20 Foot X-Ray (Signed) Agapito Beauchamp - 12/26/[address] (Signed) Vijay Conte - 11/15/19 Chest/Abdomen/Pelvis CT (Signed) Vijay Conte - 11/15/[address] (Signed) Vijay Conte - 11/15/19 Launch?[facility] [address] [address] [address] Scan Report Signed Patient: Tee Greenberg MR#: [id number] : 1980 Acct:[id number] Age/Sex: 40 / M Date of Service: 06/08/21 Loc: ED Accession Number: [id number] ?? Procedure: CT cervical spine wo con Ordering Provider: Anais Ferrer D.O. PROCEDURE:? CT CERVICAL SPINE WO CON ? INDICATIONS:? fall ? TECHNIQUE:? Noncontrast 3 mm thick sections acquired from the skull base to the T4 level.? Sagittal and coronal reformats were then constructed.? For radiation dose reduction, the following was used:? automated exposure control, adjustment of mA and/or kV according to patient size.? ? COMPARISON:? [facility], CT, CT CERVICAL SPINE WO CON, 10/19/2016, 13:34.? [facility], CT, CT CERVICAL SPINE WO CON, 04/07/2017, 13:47.? [facility], CT, CT CERVICAL SPINE WITHOUT CONTRAST, 11/14/2017, 9:34.? [facility], CT, CT HEAD/BRAIN WO CON, 06/08/2021, 15:13.? [facility], CT, CT LUMBAR SPINE WO CON, 06/08/2021, 15:13.? [facility], CT, CT CERVICAL SPINE WO CON, 11/15/2019, 20:08. ? FINDINGS:? Image quality:? This examination is somewhat limited by quantum mottle artifact.? ? Bones:? No fractures or dislocations.? Visualized superior ribs are intact.? ? There is reversal of the normal cervical lordosis.? Premature cervical spine degenerative changes are seen, which are worst at the C4-C5 and C6-C7 levels.? Posteriorly directed endplate osteophytes are seen at C6-C7. ? Soft tissues:? Prevertebral soft tissues are normal in thickness.? No paravertebral hematomas.? No apical pneumothoraces.? ? ? IMPRESSION:? Negative for acute fracture. ? Premature cervical spine degenerative changes are seen, which are worst at C4-C5 and C6-C7. ? Reversal of the normal cervical lordosis is seen. This is commonly observed in patients with muscular spasm. ? ? ? Dictated by: Fady Muhammad M.D. on 06/08/2021 at 14:25 ? ? Approved by: Fady Muhammad M.D. on 06/08/2021 at 14:27? Lumbar spine CT: Radiologist's Impression: Tee Greenberg??40??M??1980 ? Allergy/Adv: amoxicillin, amitriptyline, diphenhydramine, haloperidol (More??) Close Lumbar Spine CT (Signed) Fady Muhammad - 06/08/[address] (Signed) Fady Muhammad - 06/08/[address] (Signed) Fady Muhammad - 06/08/21 Abdomen/Pelvis CT (Signed) Vijay Conte - 05/27/21 Abdomen/Pelvis CT (Signed) Dewayne Saha - 04/25/21 Abdomen Ultrasound (Signed) Srikanth Gonzales - 04/25/21 Abdomen/Pelvis CT (Signed) Srikanth Gonzales - 03/30/21 Chest/Abdomen X-ray (Signed) Srikanth Gonzales - 03/30/21 Abdomen/Pelvis CT (Signed) Fady Muhammad - 10/07/20 Thoracic Spine X-Ray (Signed) Jennifer Rodriguez - 02/12/20 Lumbar Spine X-Ray (Signed) Jennifer Rodriguez - 02/12/20 Foot X-Ray (Signed) Agapito Beauchamp - 12/26/[address] (Signed) Vijay Conte - 11/15/19 Chest/Abdomen/Pelvis CT (Signed) Vijay Conte - 11/15/[address] (Signed) Vijay Cnote - 11/15/19 Launch?[place] [address] CT Scan Report Signed Patient: Tee Greenberg MR#: [id number] : 1980 Acct:[id number] Age/Sex: 40 / M Date of Service: 06/08/21 Loc: ED Accession Number: [id number] ?? Procedure: CT cervical spine wo con Ordering Provider: Anais Ferrer D.O. PROCEDURE:? CT CERVICAL SPINE WO CON ? INDICATIONS:? fall ? TECHNIQUE:? Noncontrast 3 mm thick sections acquired from the skull base to the T4 level.? Sagittal and coronal reformats were then constructed.? For radiation dose reduction, the following was used:? automated exposure control, adjustment of mA and/or kV according to patient size.? ? COMPARISON:? [facility], CT, CT CERVICAL SPINE WO CON, 10/19/2016, 13:34.? [facility], CT, CT CERVICAL SPINE WO CON, 04/07/2017, 13:47.? [facility], CT, CT CERVICAL SPINE WITHOUT CONTRAST, 11/14/2017, 9:34.? [facility], CT, CT HEAD/BRAIN WO CON, 06/08/2021, 15:13.? [facility], CT, CT LUMBAR SPINE WO CON, 06/08/2021, 15:13.? [facility], CT, CT CERVICAL SPINE WO CON, 11/15/2019, 20:08. ? FINDINGS:? Image quality:? This examination is somewhat limited by quantum mottle artifact.? ? Bones:? No fractures or dislocations.? Visualized superior ribs are intact.? ? There is reversal of the normal cervical lordosis.? Premature cervical spine degenerative changes are seen, which are worst at the C4-C5 and C6-C7 levels.? Posteriorly directed endplate osteophytes are seen at C6-C7. ? Soft tissues:? Prevertebral soft tissues are normal in thickness.? No paravertebral hematomas.? No apical pneumothoraces.? ? ? IMPRESSION:? Negative for acute fracture. ? Premature cervical spine degenerative changes are seen, which are worst at C4-C5 and C6-C7. ? Reversal of the normal cervical lordosis is seen. This is commonly observed in patients with muscular spasm. ? ? ? Dictated by: Fady Muhammad M.D. on 06/08/2021 at 14:25 ? ? Approved by: Fady Muhammad M.D. on 06/08/2021 at 14:27? [facility] Narrative Medical decision making narrative: This is a 40-year-old male who had about 10 ft fall directly into his back. He had headache initially but does not at this point. Head CT, C-spine do not show any acute changes. His low back does have some changes but he has had chronic back issues these known appear to be acute. He has increased pain with radiation down his legs with some new numbness and tingling in his left leg. He does not have any other red flag symptoms at this time. He is able to move appropriately without significant assistance. Plan for pain medication, muscle relaxer and patient to follow-up with primary care. Patient discussed red flag symptoms and reasons to return emergently. All questions answered. Patient asked for prescription of hydrocodone fussy finds this more helpful. Discharge Plan Departure Patient Disposition: Home Clinical Impression: Fall, Lumbar back pain, Cervical pain Instructions: DI for Low Back Pain Activity Restrictions/Additional Instructions: Follow-up with your physician this week for recheck. The imaging of your back today does show some narrowing of the neural foraminal on the left as well as some changes to the discs in the lower lumbar region that can cause back pain.?? You may take Valium 1 tablet every 8 hours as needed. Do not take this medication with methocarbamol. You may take Ephrata 1-2 tablets every 6 hours as needed for pain. This medication can make you sleepy do not drive, perform hazardous activities or make any major decisions while taking it. This medication will make you constipated please take a stool softener once to twice daily until stools are soft and regular. Prescriptions sent to [facility] in [place]. Please return for rapidly worsening pain, loss of sensation, inability to lift or move your legs or toes, loss of bowel or bladder control, lightheadedness or passing out, severe headaches, new chest pain or shortness of breath or other new or concerning symptoms. Prescriptions: New hydrocodone-acetaminophen 5-325 mg tablet 1 tab PO Q6H PRN (Reason: pain) Qty: 10 0RF diazepam [Valium] 10 mg tablet 10 mg PO TID PRN (Reason: muscle spasm) Qty: 10 0RF No Action methocarbamol 750 mg tablet 750 mg PO BEDTIME 0RF ibuprofen 400 mg tablet 400 mg PO Q8H PRN (Reason: Pain) 0RF acetaminophen [Tylenol] 325 mg capsule 650 mg PO Q6H PRN (Reason: Pain) 0RF lamotrigine [Lamictal] 100 mg tablet 100 mg PO DAILY 0RF prazosin 2 mg capsule 2 mg PO BEDTIME 0RF docusate sodium 100 mg capsule 100 mg PO BID Qty: 20 0RF methylphenidate HCl [Ritalin] 10 mg Tablet 10 mg PO BID 0RF oxycodone 5 mg tablet 5 mg PO Q6H PRN (Reason: post operative pain) Qty: 30 0RF docusate sodium 100 mg capsule 100 mg PO BID Qty: 20 0RF hyoscyamine sulfate 0.125 mg tablet 0.125 mg PO BID-QID PRN (Reason: dyspepsia) Qty: 20 0RF ondansetron 4 mg tablet,disintegrating 4 mg PO TID-QID PRN (Reason: nausea and vomiting) Qty: 10 0RF hydrocodone-acetaminophen [Ephrata] 5-325 mg tablet 1 tab PO Q6H PRN (Reason: pain) Qty: 10 0RF gabapentin 600 mg tablet 600 mg PO TID 0RF cetirizine 10 mg tablet 10 mg PO BID PRN (Reason: Allergy Symptoms) 0RF
[2021-06-08] MEDS: KETOROLAC 30 MG/ML VIAL IM (18:17)
[2021-06-08] MEDS: diazePAM 5 MG TABLET 10 MG PO (18:17)
[2021-06-08] MEDS: HYDROCODONE/ACET 5/325 PREPACK 1 BOTTLE MISC (18:45)
[2021-06-08 18:49] VITALS: BP 131/60; PULSE 62; RESP 16; O2SAT 99
== END 2021-06-08 18:49 | disposition home or self-care (01) ==
PROVIDERS: Emergency Provider Emergency Medicine
DX: M54.50 Low back pain, unspecified (principal); M54.2 Cervicalgia; R51.9 Headache, unspecified; W17.89XA Other fall from one level to another, initial encounter
CPT/HCPCS: 70450; 72125; 72131; 96372; 99283; 99284; J1885

== ENCOUNTER 2021-09-25 11:57 | Emergency (ER) | payer OTHER, MEDICAID, SELFPAY ==
[2021-09-25 12:00] VITALS: BP 128/81; PULSE 63; RESP 14; TEMP 36.7; O2SAT 95; BMI 21.6
--- NOTE | 2021-09-25 12:37 | DI.RAD.S_ITS ---
PROCEDURE: XR CERVICAL SPINE 2V OR 3V INDICATIONS: pain TECHNIQUE: 3 view(s) of the cervical spine were acquired. COMPARISON: [facility], CT, CT CERVICAL SPINE WO [facility], 06/08/2021, 15:13. FINDINGS: Bones: No fractures or dislocations to the C7-T1 level. The lateral masses of C1 appear intact on the odontoid view. No suspicious bony lesions. Cervical straightening is present. There is trace retrolisthesis of C4 on C5. Moderate disc space narrowing is present at C4-5, C6-7. Anterior osteophyte is present C6. Mild multilevel uncovertebral hypertrophy is present. Soft tissues: No prevertebral soft tissue swelling. IMPRESSION: Degenerative changes and cervical straightening as described above. Dictated by: Amaris Feldman M.D. on 09/25/2021 at 13:02 Approved by: Amaris Feldman M.D. on 09/25/2021 at 13:10
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
[2021-09-25] MEDS: KETOROLAC 30 MG/ML VIAL 60 MG IM (12:46)
[2021-09-25] MEDS: HYDROMORPHONE 1 MG INJ IM (14:07)
[2021-09-25] MEDS: CYCLOBENZAPRINE 10 MG TABLET PO (14:07)
[2021-09-25 14:18] VITALS: BP 112/68; PULSE 51; RESP 16; O2SAT 99
== END 2021-09-25 14:18 | disposition home or self-care (01) ==
PROVIDERS: Emergency Provider Physician Assistant
DX: M43.12 Spondylolisthesis, cervical region (principal); G89.29 Other chronic pain; Z87.891 Personal history of nicotine dependence
CPT/HCPCS: 72040; 96372; 99283; 99284; J1170; J1885

== ENCOUNTER 2021-11-29 20:44 | Emergency (ER) | payer OTHER, MEDICAID, SELFPAY ==
[2021-11-29 21:12] VITALS: BP 120/56; PULSE 60; RESP 18; TEMP 36.8; O2SAT 98; BMI 23.0
--- NOTE | 2021-11-29 23:02 | ED.BACK ---
HPI - Back Pain/Injury General Chief Complaint: Back Pain/Injury Stated Complaint: Lower back pain BL Time Seen by Provider: 11/29/21 23:02 Source: patient History of Present Illness HPI Narrative: 41-year-old male former smoker with extensive chronic back issues presents with significant other and a chief complaint of increasing low back pain with radiation down both legs. He has been having trouble for quite some time and states that he seems to have ?tweaked it? while having sexual intercourse yesterday. He has pain with range of motion and ambulation and states the pain radiates down both legs as stated. He has some tingling but no significant numbness. He denies loss of control of bowel or bladder. He does not take blood thinners and denies any fever or chills. His pain is worse when he moves and improves with rest. Related Data Home Medications Medication Instructions Recorded Confirmed acetaminophen 325 mg capsule 650 mg PO Q6H PRN 06/21/20 10/30/20 (Tylenol) ibuprofen 400 mg tablet 400 mg PO Q8H PRN 06/21/20 10/30/20 lamotrigine 100 mg tablet 100 mg PO DAILY 06/21/20 10/30/20 (Lamictal) methocarbamol 750 mg tablet 750 mg PO BEDTIME 06/21/20 10/30/20 prazosin 2 mg capsule 2 mg PO BEDTIME 06/21/20 10/30/20 cetirizine 10 mg tablet 10 mg PO BID PRN 06/26/20 10/30/20 gabapentin 600 mg tablet 600 mg PO TID 06/26/20 10/30/20 methylphenidate HCl 10 mg tablet 10 mg PO BID 09/30/20 10/30/20 (Ritalin) Previous Rx's Medication Instructions Recorded hydrocodone 5 mg-acetaminophen 325 1 tab PO Q6H PRN #10 tab 11/16/19 mg tablet ([place]) docusate sodium 100 mg capsule 100 mg PO BID #20 cap 06/27/20 docusate sodium 100 mg capsule 100 mg PO BID #20 cap 09/30/20 oxycodone 5 mg tablet 5 mg PO Q6H PRN #30 tab 09/30/20 hyoscyamine sulfate 0.125 mg tablet 0.125 mg PO BID-QID PRN #20 tab 03/30/21 ondansetron 4 mg disintegrating 4 mg PO TID-QID PRN #10 tab 03/30/21 tablet diazepam 10 mg tablet (Valium) 10 mg PO TID PRN #10 tab 06/08/21 hydrocodone 5 mg-acetaminophen 325 1 tab PO Q6H PRN #10 tab 06/08/21 mg tablet cyclobenzaprine 10 mg tablet 10 mg PO Q8H PRN #21 tab 09/25/21 methylprednisolone 4 mg tablets in See Rx Instructions .ROUTE 09/25/21 a dose pack (Medrol (Lee)) .COMPLEX #21 ea ketorolac 10 mg tablet 10 mg PO Q6H PRN #14 tab 11/30/21 prednisone 10 mg tablet See Rx Instructions .ROUTE 11/30/21 .COMPLEX #30 tab Allergies Allergy/AdvReac Type Severity Reaction Status Date / Time amoxicillin Allergy Severe Anaphylaxis Verified 11/29/21 21:12 amitriptyline AdvReac Severe Agitated Verified 11/29/21 21:12 diphenhydramine AdvReac Severe Agitated Verified 11/29/21 21:12 [From Benadryl] haloperidol [From Haldol] AdvReac Severe Agitated Verified 11/29/21 21:12 Review of Systems Review of Systems Narrative: GENERAL: Denies chills, fatigue, malaise, fever, sweats. HEENT: Denies sinus pain, ear pain, sore throat, difficulty swallowing, dizziness. RESPIRATORY: Denies dyspnea, cough, wheezing, hemoptysis, sputum. CARDIOVASCULAR: Denies chest pain, palpitations, orthopnea, edema, GASTROINTESTINAL: Denies nausea, vomiting, abdominal pain, diarrhea, constipation, melena. : Denies dysuria, frequency, incontinence, hematuria, urinary retention. MUSCULOSKELETAL: See HPI SKIN: Denies rash, skin lesions, or other NEUROLOGIC: See HPI PSYCHIATRIC: No concerning psychosocial issues. 12 point review of systems is negative except for those stated above Patient History Medical History Anxiety Chronic pain Compression fracture Depression Head injury Neuropathy PTSD (post-traumatic stress disorder) Surgical History History of appendectomy Social History marital status: household members: spouse occupational status: disabled Smoking Status: Former smoker alcohol intake: former substance use type: marijuana Smoking Status: Former smoker tobacco type: cigarettes alcohol intake frequency: holidays/special occasions only Substance Use Type: marijuana Exam Narrative Exam Narrative: GENERAL: [] year old patient appears stated age. Well-developed patient, in mild distress. HEAD: Atraumatic. Normocephalic. EYES: Pupils equal round and reactive. Extraocular motions intact. No scleral icterus. No injection or drainage. ENT: Nose without bleeding, purulent drainage. Throat without erythema, tonsillar hypertrophy or exudate. Airway patent. NECK: Trachea midline. Non tender CARDIOVASCULAR: Regular rate and rhythm without murmurs, gallops, or rubs. RESPIRATORY: Clear to auscultation. Breath sounds equal bilaterally. No wheezes, rales, or rhonchi. GASTROINTESTINAL: Abdomen soft, non-tender, nondistended. EXTREMITIES: No edema or joint tenderness. BACK: dye machine tender but free of any obvious external abnormalities. Patient exam notes decreased range of motion and muscle spasm, but no CVA tenderness, or vertebral point tenderness. There are no symptoms of cauda equina such as saddle anesthesia, and decreased reflexes, decreased sensation or strength.. NEURO: AOx3. SKIN: No rash or erythema of visible areas Initial Vital Signs Initial Vital Signs: Vital Signs Temperature 98.3 F 11/29/21 21:12 Pulse Rate 60 11/29/21 21:12 Respiratory Rate 18 11/29/21 21:12 Blood Pressure 120/56 L 11/29/21 21:12 Pulse Oximetry 98 11/29/21 21:12 Course Orders Ordered: ED Orders 11/29/21 23:43 CT lumbar spine wo con Stat Discontinued Medications Ketorolac Tromethamine (Ketorolac 30 Mg/Ml Vial) 30 mg IM NOW ONE Stop: 11/30/21 00:23 Last Admin: 11/30/21 00:31 Dose: 30 mg Documented by: MACIE Prednisone (Prednisone 20 Mg Tablet) 60 mg PO NOW ONE Stop: 11/30/21 00:23 Last Admin: 11/30/21 00:32 Dose: 60 mg Documented by: MACIE Vital Signs Vital signs: Vital Signs - 8 hr 11/30/21 01:07 Pulse Rate 61 Respiratory Rate 14 Blood Pressure 124/64 Pulse Oximetry 97 MDM - Back Pain/Injury MDM Narrative Medical decision making narrative: Multiple etiologies of back pain considered including; Epidural abscess, cauda equina, mass occupying lesion, and other considered, however no red flags or neuro surgical emergency are present. Imaging is obtained and shows no significant findings. He is given medications which to improve his symptoms. He has access to opioids at home. I talked with him at length about the importance of close follow-up and have included contact information for doctors in our community. I did discuss with him the [facility] report which clearly states no opioids to be given for subjective complaints. He understands and agrees with the diagnosis and plan. Discharge Plan Departure Patient Disposition: Home Clinical Impression: Bilateral lumbar radiculopathy Instructions: DI for Low Back Pain Activity Restrictions/Additional Instructions: *You have been diagnosed with [acute on chronic lumbar pain. As we discussed your physical exam and CT scan are very reassuring *What to do: *Please continue to take your regular medications as directed. [ x] New medication prescriptions sent to your pharmacy: [ [facility]] [ ] New medication written as a paper prescription [ ] No new medications given *Please follow up with your primary care provider in 2-3 days, call for an appointment. Let them know you were seen in the Emergency Department and that we ask that you be seen in follow up. We will electronically transmit a record of today's note if your PCP is in our system *If you do not have a primary care provider please contact the [facility] Resource line at [phone]. They will ask some questions about your medical history and help get you set up with a doctor in the community. *Return to Emergency Department if you should have any new, worsening or concerning symptoms, such as [fever greater than 101 F, shaking chills, worsening pain, persistent vomiting or other bothersome symptoms] Prescriptions: New prednisone 10 mg tablet See Rx Instructions .ROUTE .COMPLEX Qty: 30 0RF Rx Instructions: Day 1,2,3: 40mg PO Daily Day 4,5,6: 30mg PO Daily Day 7,8,9: 20mg PO Daily Day 10,11,12: 10mg PO Daily #30 ketorolac 10 mg tablet 10 mg PO Q6H PRN (Reason: pain) Qty: 14 0RF No Action methocarbamol 750 mg tablet 750 mg PO BEDTIME 0RF ibuprofen 400 mg tablet 400 mg PO Q8H PRN (Reason: Pain) 0RF acetaminophen [Tylenol] 325 mg capsule 650 mg PO Q6H PRN (Reason: Pain) 0RF lamotrigine [Lamictal] 100 mg tablet 100 mg PO DAILY 0RF prazosin 2 mg capsule 2 mg PO BEDTIME 0RF docusate sodium 100 mg capsule 100 mg PO BID Qty: 20 0RF methylphenidate HCl [Ritalin] 10 mg Tablet 10 mg PO BID 0RF oxycodone 5 mg tablet 5 mg PO Q6H PRN (Reason: post operative pain) Qty: 30 0RF docusate sodium 100 mg capsule 100 mg PO BID Qty: 20 0RF hyoscyamine sulfate 0.125 mg tablet 0.125 mg PO BID-QID PRN (Reason: dyspepsia) Qty: 20 0RF ondansetron 4 mg tablet,disintegrating 4 mg PO TID-QID PRN (Reason: nausea and vomiting) Qty: 10 0RF hydrocodone-acetaminophen 5-325 mg tablet 1 tab PO Q6H PRN (Reason: pain) Qty: 10 0RF diazepam [Valium] 10 mg tablet 10 mg PO TID PRN (Reason: muscle spasm) Qty: 10 0RF hydrocodone-acetaminophen [[place]] 5-325 mg tablet 1 tab PO Q6H PRN (Reason: pain) Qty: 10 0RF gabapentin 600 mg tablet 600 mg PO TID 0RF cetirizine 10 mg tablet 10 mg PO BID PRN (Reason: Allergy Symptoms) 0RF cyclobenzaprine 10 mg tablet 10 mg PO Q8H PRN (Reason: muscle spasm) Qty: 21 0RF methylprednisolone [Medrol (Lee)] 4 mg tablets,dose pack See Rx Instructions .ROUTE .COMPLEX Qty: 21 0RF Rx Instructions: orally per package directions Referrals: Zaid Albarran DO [Physician] - Tonya Griffin MD [Physician] -
--- NOTE | 2021-11-29 23:43 | DI.CT.S_ITS ---
PROCEDURE: CT LUMBAR SPINE WO CON INDICATIONS: midline lumbar pain TECHNIQUE: Noncontrast 3 mm thick sections acquired from the T12 level to the sacrum. Sagittal and coronal reformats were constructed. For radiation dose reduction, the following was used: automated exposure control. COMPARISON: [facility], MR, MR LUMBAR SPINE WITHOUT CONTRAST, 11/24/2021, 8:23. [facility], CR, XR LUMBAR SPINE WITH FLEXION EXTENSION 5 VIEWS, 10/22/2021, 7:57. [facility], CT, CT LUMBAR SPINE WO CON, 06/08/2021, 15:13. FINDINGS: Image quality: Excellent. Bones: No acute vertebral body compression fractures. No suspicious lytic or blastic bony lesions. No pars defects. Mild levoconvex scoliotic curvature is noted. At the L5-S1 level, there is focal [id number] disc space narrowing. Moderate disc bulge is seen, with calcification/ossification along the posterior/left aspect of the annulus fibrosus. Mild facet joint hypertrophy is seen. There is associated moderate to severe left-sided neural foraminal narrowing. No significant right-sided neural foraminal narrowing is seen. Minimal central canal narrowing is seen. At the L4-L5 level, there is mild to moderate generalized disc bulge, with at least moderate left-sided and [id number] right-sided neural foraminal narrowing. Mild central canal narrowing is seen. Milder degenerative changes are seen elsewhere. Soft tissues: No retroperitoneal masses or hematomas. Visualized aorta is normal in caliber. Incidental note is made of a circumaortic left renal vein. IMPRESSION: Focal lower lumbar spine degenerative changes are seen, including moderate to severe left-sided neural foraminal narrowing at L5-S1. Incidental note is made of: Circumaortic left renal vein Mild levoconvex scoliotic curvature Dictated by: Fady Muhammad M.D. on 11/29/2021 at 23:07 Approved by: Fady Muhammad M.D. on 11/29/2021 at 23:13
[2021-11-30] MEDS: KETOROLAC 30 MG/ML VIAL IM (00:31)
[2021-11-30] MEDS: predniSONE 20 MG TABLET 60 MG PO (00:32)
[2021-11-30 01:07] VITALS: BP 124/64; PULSE 61; RESP 14; O2SAT 97
== END 2021-11-30 01:08 | disposition home or self-care (01) ==
PROVIDERS: Emergency Provider Emergency Medicine
DX: M54.16 Radiculopathy, lumbar region (principal)
CPT/HCPCS: 72131; 96372; 99283; J1885

== ENCOUNTER 2022-07-14 20:41 | Emergency (ER) | payer OTHER, MEDICAID, SELFPAY ==
[2022-07-14 20:58] VITALS: BP 140/93; PULSE 56; RESP 20; TEMP 36.8; O2SAT 96; BMI 23.0
--- NOTE | 2022-07-14 22:45 | ED_ITS ---
HPI - Psych General Chief Complaint: Psychiatric Symptoms Stated Complaint: mental instability Time Seen by Provider: 07/14/22 22:37 Source: patient Mode of arrival: Ambulatory History of Present Illness HPI Narrative: Patient is a 42-year-old male who has a longstanding history of chronic pain specifically lower back pain. He states that he is here because he has ran out of all of his pain medication. He states he has attempted to contact his primary doctor and they told him that they would call him back but they have yet to do so. Says been going on for the past couple days. He states he is not suicidal but does have vague generalized homicidal thoughts because of the issues surrounding his health. He states he has problems with his primary care doctor. He is here stating that he is feeling very anxious. He does not feel like he is specifically going through opioid withdrawals. He did take a hydroxyzine prior to arrival. Related Data Home Medications Medication Instructions Recorded Confirmed acetaminophen 325 mg capsule 650 mg PO Q6H PRN Pain 06/21/20 10/30/20 (Tylenol) ibuprofen 400 mg tablet 400 mg PO Q8H PRN Pain 06/21/20 10/30/20 lamotrigine 100 mg tablet 100 mg PO DAILY 06/21/20 10/30/20 (Lamictal) methocarbamol 750 mg tablet 750 mg PO BEDTIME 06/21/20 10/30/20 prazosin 2 mg capsule 2 mg PO BEDTIME 06/21/20 10/30/20 cetirizine 10 mg tablet 10 mg PO BID PRN Allergy Symptoms 06/26/20 10/30/20 gabapentin 600 mg tablet 600 mg PO TID 06/26/20 10/30/20 methylphenidate HCl 10 mg tablet 10 mg PO BID 09/30/20 10/30/20 (Ritalin) Previous Rx's Medication Instructions Recorded hydrocodone 5 mg-acetaminophen 325 1 tab PO Q6H PRN pain #10 tabs 11/15/20 mg tablet ([place]) docusate sodium 100 mg capsule 100 mg PO BID prevent constipation 06/27/20 #20 caps docusate sodium 100 mg capsule 100 mg PO BID prevent constipation 09/30/20 from pain meds #20 caps oxycodone 5 mg tablet 5 mg PO Q6H PRN post operative 09/30/20 pain #30 tabs hyoscyamine sulfate 0.125 mg tablet 0.125 mg PO BID-QID PRN dyspepsia 03/30/21 #20 tabs ondansetron 4 mg disintegrating 4 mg PO TID-QID PRN nausea and 03/30/21 tablet vomiting #10 tabs diazepam 10 mg tablet (Valium) 10 mg PO TID PRN muscle spasm #10 06/08/21 tabs hydrocodone 5 mg-acetaminophen 325 1 tab PO Q6H PRN pain #10 tabs 06/08/21 mg tablet cyclobenzaprine 10 mg tablet 10 mg PO Q8H PRN muscle spasm #21 09/25/21 tabs methylprednisolone 4 mg tablets in See Rx Instructions PO .COMPLEX 09/25/21 a dose pack (Medrol ([place])) #21 ea ketorolac 10 mg tablet 10 mg PO Q6H PRN pain #14 tabs 11/30/21 prednisone 10 mg tablet See Rx Instructions .Route 11/30/21 .COMPLEX #30 tabs Allergies Allergy/AdvReac Type Severity Reaction Status Date / Time amoxicillin Allergy Severe Anaphylaxis Verified 07/14/22 21:17 amitriptyline AdvReac Severe Agitated Verified 07/14/22 21:17 diphenhydramine AdvReac Severe Agitated Verified 07/14/22 21:17 [From Benadryl] haloperidol [From Haldol] AdvReac Severe Agitated Verified 07/14/22 21:17 Review of Systems Constitutional Constitutional: Reports system reviewed and no additional complaints, except as documented Psychiatric Psychiatric: Reports system reviewed and no additional complaints, except as documented Hematologic/Lymphatic On Anticoagulants: No Patient History Medical History Anxiety Chronic pain Compression fracture Depression Head injury Neuropathy PTSD (post-traumatic stress disorder) Surgical History History of appendectomy Social History marital status: household members: spouse occupational status: disabled Smoking Status: Former smoker alcohol intake: former substance use type: marijuana Smoking Status: Former smoker tobacco type: cigarettes alcohol intake frequency: holidays/special occasions only Substance Use Type: marijuana Exam Initial Vital Signs Initial Vital Signs: Vital Signs Temperature 98.2 F 07/14/22 20:58 Pulse Rate 56 L 07/14/22 20:58 Respiratory Rate 20 07/14/22 20:58 Blood Pressure 140/93 H 07/14/22 20:58 Pulse Oximetry 96 07/14/22 20:58 Oxygen Delivery Method 07/14/22 20:58 HENMT Head: normal to inspection and normocephalic Resp Effort & Inspection: normal respiratory effort Psych Appearance: grossly normal and well kempt Speech and Movement: speech and movement normal Mood: congruent mood Affect: normal affect Course Orders Ordered: ED Orders 07/14/22 21:21 Acetaminophen Stat Complete Blood Count AUTO DIFF Stat Comprehensive Metabolic Panel Stat Ethanol (ETOH) Stat Free T4, Direct Thyroxine Stat Salicylate Stat Thyroid Stimulating Hormone Stat Discontinued Medications Lorazepam (Lorazepam 0.5 Mg Tablet) 1 mg PO NOW ONE Stop: 07/14/22 22:46 Last Admin: 07/14/22 23:04 Dose: 1 mg Documented By: ANNE MARIE Vital Signs Vital signs: Vital Signs - 8 hr 07/14/22 20:58 07/15/22 00:03 Temperature 98.2 F 97.8 F Pulse Rate 56 L 84 Respiratory Rate 20 16 Blood Pressure 140/93 H 144/90 H Pulse Oximetry 96 98 Oxygen Delivery Method Room Air Room Air MDM - Psych Medical Records Attestation: I reviewed the patient's medical records. [facility] Narrative Medical decision making narrative: Patient was given Ativan any states that that did help his symptoms somewhat. Given his chronic pain issues and prior notes we will not give any opioid pain medicine out of the emergency department. Patient was actually for something to sleep and I informed him that we did not have anything other than the Ativan that he is already received. He can continue to take his hydroxyzine. Advised that he contact his primary doctor. Offered to let him stay in the emergency department talk with social work but he declined. Patient was given return precautions and follow-up instructions. 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 Continue the rest of your medications as directed. Return to the emergency department for any new symptoms. Prescriptions: No Action methocarbamol 750 mg tablet 750 mg PO BEDTIME ibuprofen 400 mg tablet 400 mg PO Q8H PRN (Reason: Pain) acetaminophen [Tylenol] 325 mg capsule 650 mg PO Q6H PRN (Reason: Pain) lamotrigine [Lamictal] 100 mg tablet 100 mg PO DAILY prazosin 2 mg capsule 2 mg PO BEDTIME docusate sodium 100 mg capsule 100 mg PO BID Qty: 20 0RF methylphenidate HCl [Ritalin] 10 mg Tablet 10 mg PO BID oxycodone 5 mg tablet 5 mg PO Q6H PRN (Reason: post operative pain) Qty: 30 0RF docusate sodium 100 mg capsule 100 mg PO BID Qty: 20 0RF hyoscyamine sulfate 0.125 mg tablet 0.125 mg PO BID-QID PRN (Reason: dyspepsia) Qty: 20 0RF ondansetron 4 mg tablet,disintegrating 4 mg PO TID-QID PRN (Reason: nausea and vomiting) Qty: 10 0RF hydrocodone-acetaminophen 5-325 mg tablet 1 tab PO Q6H PRN (Reason: pain) Qty: 10 0RF diazepam [Valium] 10 mg tablet 10 mg PO TID PRN (Reason: muscle spasm) Qty: 10 0RF hydrocodone-acetaminophen [[place]] 5-325 mg tablet 1 tab PO Q6H PRN (Reason: pain) Qty: 10 0RF gabapentin 600 mg tablet 600 mg PO TID cetirizine 10 mg tablet 10 mg PO BID PRN (Reason: Allergy Symptoms) cyclobenzaprine 10 mg tablet 10 mg PO Q8H PRN (Reason: muscle spasm) Qty: 21 0RF methylprednisolone [Medrol ([place])] 4 mg tablets,dose pack See Rx Instructions .ROUTE .COMPLEX Qty: 21 0RF Rx Instructions: orally per package directions prednisone 10 mg tablet See Rx Instructions .ROUTE .COMPLEX Qty: 30 0RF Rx Instructions: Day 1,2,3: 40mg PO Daily Day 4,5,6: 30mg PO Daily Day 7,8,9: 20mg PO Daily Day 10,11,12: 10mg PO Daily #30 ketorolac 10 mg tablet 10 mg PO Q6H PRN (Reason: pain) Qty: 14 0RF Stand Alone Forms: Patient Portal/API
[2022-07-14] MEDS: LORazepam 0.5 MG TABLET 1 MG PO (23:04)
[2022-07-15 00:03] VITALS: BP 144/90; PULSE 84; RESP 16; TEMP 36.6; O2SAT 98
== END 2022-07-15 00:05 | disposition home or self-care (01) ==
PROVIDERS: Emergency Provider Emergency Medicine
DX: M54.50 Low back pain, unspecified (principal); G89.29 Other chronic pain
CPT/HCPCS: 99283

== ENCOUNTER 2023-03-08 20:28 | Emergency (ER) | payer OTHER, MEDICAID, SELFPAY ==
[2023-03-08 20:33] VITALS: BP 137/74; PULSE 58; RESP 18; TEMP 36.9; O2SAT 98; BMI 23.8
== END 2023-03-08 23:31 | disposition left against medical advice (07) ==
PROVIDERS: Emergency Provider Emergency Medicine
DX: M54.2 Cervicalgia (principal)
CPT/HCPCS: 99281

== ENCOUNTER 2023-09-20 12:01 | Emergency (ER) | payer OTHER, MEDICAID, SELFPAY ==
[2023-09-20 12:17] VITALS: BP 123/74; PULSE 66; RESP 18; TEMP 37.1; O2SAT 97; BMI 25.1
--- NOTE | 2023-09-20 12:25 | DI.RAD.S_ITS ---
PROCEDURE: XR ELBOW LT MIN 3V INDICATIONS: fall on left elbow 2 weeks ago; pain and tingling TECHNIQUE: 3 views of the elbow were acquired. COMPARISON: [facility], CR, XR ELBOW 3+ VIEWS LEFT, 09/20/2023, 11:20. FINDINGS: Bones: No fractures or dislocations. No suspicious bony lesions. Soft tissues: No elbow joint effusion. No suspicious soft tissue calcifications. IMPRESSION: No acute bony abnormality or significant joint effusion. Dictated by: Vickey Rosa M.D. on 09/20/2023 at 13:24 Approved by: Vickey Rosa M.D. on 09/20/2023 at 13:28
--- NOTE | 2023-09-20 12:48 | ED.UPPEXIN ---
HPI - Extremity Injury (Upper) <Hernan Larson PA-C - Last Filed: 09/20/23 13:40> General Chief Complaint: Extremity Injury, Upper Stated Complaint: fall, elbow pain Time Seen by Provider: 09/20/23 12:33 Source: patient Mode of arrival: Ambulatory History of Present Illness HPI narrative: 43-year-old male with past medical history chronic pain presents to the ED with left elbow pain for 2 weeks. Patient states that he had a mechanical slip and fall when he lunged for his dog outside his house. He fell on concrete and initially felt more pain in the back and neck. He was seen at a different ED and evaluated for back and neck pain with no acute findings. He was not evaluated for the elbow at that time. Patient states that over the last week his left elbow has become more painful. Patient is holding his arm in adduction and elbow is flexed close to his body. Denies intermittent tingling. Denies numbness, weakness. No new trauma. Patient has chronic pain for which he has a pain contract. Patient states that he took some hydrocodone at 7:00 a.m. this morning and Toradol just prior to coming to the ED with no relief. Related Data Home Medications Medication Instructions Recorded Confirmed acetaminophen 325 mg capsule 650 mg PO Q6H PRN Pain 06/21/20 10/30/20 (Tylenol) ibuprofen 400 mg tablet 400 mg PO Q8H PRN Pain 06/21/20 10/30/20 lamotrigine 100 mg tablet 100 mg PO DAILY 06/21/20 10/30/20 (Lamictal) methocarbamol 750 mg tablet 750 mg PO BEDTIME 06/21/20 10/30/20 prazosin 2 mg capsule 2 mg PO BEDTIME 06/21/20 10/30/20 cetirizine 10 mg tablet 10 mg PO BID PRN Allergy Symptoms 06/26/20 10/30/20 gabapentin 600 mg tablet 600 mg PO TID 06/26/20 10/30/20 methylphenidate HCl 10 mg tablet 10 mg PO BID 09/30/20 10/30/20 (Ritalin) Previous Rx's Medication Instructions Recorded hydrocodone 5 mg-acetaminophen 325 1 tab PO Q6H PRN pain #10 tabs 11/15/ mg tablet ([place]) docusate sodium 100 mg capsule 100 mg PO BID prevent constipation 06/27/20 #20 caps docusate sodium 100 mg capsule 100 mg PO BID prevent constipation 09/30/20 from pain meds #20 caps oxycodone 5 mg tablet 5 mg PO Q6H PRN post operative 09/30/20 pain #30 tabs hyoscyamine sulfate 0.125 mg tablet 0.125 mg PO BID-QID PRN dyspepsia 03/30/21 #20 tabs ondansetron 4 mg disintegrating 4 mg PO TID-QID PRN nausea and 03/30/21 tablet vomiting #10 tabs diazepam 10 mg tablet (Valium) 10 mg PO TID PRN muscle spasm #10 06/08/21 tabs hydrocodone 5 mg-acetaminophen 325 1 tab PO Q6H PRN pain #10 tabs 06/08/21 mg tablet cyclobenzaprine 10 mg tablet 10 mg PO Q8H PRN muscle spasm #21 09/25/21 tabs methylprednisolone 4 mg tablets in See Rx Instructions PO .COMPLEX 09/25/21 a dose pack (Medrol ([place])) #21 ea ketorolac 10 mg tablet 10 mg PO Q6H PRN pain #14 tabs 11/30/21 prednisone 10 mg tablet See Rx Instructions .Route 11/30/21 .COMPLEX #30 tabs Allergies Allergy/AdvReac Type Severity Reaction Status Date / Time amoxicillin Allergy Severe Anaphylaxis Verified 03/08/23 20:33 amitriptyline AdvReac Severe Agitated Verified 03/08/23 20:33 diphenhydramine AdvReac Severe Agitated Verified 03/08/23 20:33 [From Benadryl] haloperidol [From Haldol] AdvReac Severe Agitated Verified 03/08/23 20:33 Review of Systems <Hernan Larson PA-C - Last Filed: 09/20/23 13:40> Constitutional Constitutional: Denies chills, Denies fatigue, Denies fever(s), Denies frequent falls, Denies lethargy and Denies weakness Eyes Eyes: Denies change in vision, Denies eye discharge, Denies irritation and Denies loss of vision ENT Ears, Nose, Mouth, and Throat: Denies change in voice, Denies dizziness, Denies neck pain, Denies sore throat and Denies throat swelling Cardiovascular Cardiovascular: Denies chest pain, Denies irregular heart rhythm, Denies lightheadedness, Denies palpitations, Denies dyspnea, Denies dyspnea on exertion and Denies orthopnea Respiratory Respiratory: Denies cough, Denies dyspnea, Denies dyspnea on exertion and Denies wheezing Gastrointestinal Gastrointestinal: Denies abdominal pain, Denies change in bowel habits, Denies diarrhea, Denies nausea and Denies vomiting Musculoskeletal Musculoskeletal: Denies neck pain and Denies numbness Comments: Left elbow pain Integumentary/Breasts Skin/Breast: Denies pruritus, Denies erythema, Denies rash and Denies wounds Neurologic Neurologic: Denies behavioral changes, Denies confusion, Denies dizziness, Denies frequent falls, Denies loss of vision, Denies numbness and Denies weakness Psychiatric Psychiatric: Denies anxiety, Denies behavioral changes, Denies confusion, Denies depression, Denies homicidal ideation and Denies suicidal ideation Endocrine Endocrine: Denies fatigue, Denies flushing and Denies palpitations Hematologic/Lymphatic Hematologic/Lymphatic: Denies easy bruising Allergic/Immunologic Allergic/Immunologic: Denies urticaria, Denies throat swelling and Denies wheezing Patient History <Hernan Larson PA-C - Last Filed: 09/20/23 13:40> Medical History Depression Anxiety Neuropathy Chronic pain Compression fracture Head injury PTSD (post-traumatic stress disorder) Surgical History History of appendectomy Social History marital status: household members: spouse occupational status: disabled Smoking Status: Current every day smoker alcohol intake: former substance use type: marijuana Smoking Status: Current every day smoker tobacco type: cigarettes alcohol intake frequency: holidays/special occasions only Substance Use Type: marijuana Exam <Hernan Larson PA-C - Last Filed: 09/20/23 13:40> Narrative Exam Narrative: Const General:?cooperative, healthy appearing and comfortable [facility] Head:?normal to inspection Ears:?hearing grossly normal bilaterally Nose:?external nose normal Face and sinus:?normal facial exam and sinuses nontender Mouth:?oral mucosae normal Throat:?posterior oropharynx normal Eyes General:?appearance normal, both eyes and all related structures Neck Neck:?normal visual inspection and no lymphadenopathy noted Resp Effort & Inspection:?normal respiratory effort Auscultation:?clear to auscultation bilaterally Cardio Rate:?regular rate Rhythm:?regular rhythm Musculoskeletal There is tenderness to palpation of the left elbow, wrist. Patient is holding his left arm in adduction and flexion, close to his body. There is full range of motion. Range of motion is somewhat limited by pain. Strength and sensation is intact. Patient is neurovascularly intact. Neuro General:?patient alert, patient awake and patient oriented x3 Initial Vital Signs Initial Vital Signs: Vital Signs Temperature 98.8 F 09/20/23 12:17 Pulse Rate 66 09/20/23 12:17 Respiratory Rate 18 09/20/23 12:17 Blood Pressure 123/74 09/20/23 12:17 Pulse Oximetry 97 09/20/23 12:17 Oxygen Delivery Method Room Air 09/20/23 12:17 <Anais Ferrer DO - Last Filed: 09/22/23 09:53> Initial Vital Signs Initial Vital Signs: Vital Signs Temperature 98.8 F 09/20/23 12:17 Pulse Rate 66 09/20/23 12:17 Respiratory Rate 18 09/20/23 12:17 Blood Pressure 123/74 09/20/23 12:17 Pulse Oximetry 97 09/20/23 12:17 Oxygen Delivery Method Room Air 09/20/23 12:17 Course <Hernan Larson PA-C - Last Filed: 09/20/23 13:40> Orders Ordered: Discontinued Medications Hydrocodone Bitart/Acetaminophen (Hydrocodone/Acet 10/325 Tablet) 1 tab PO NOW ONE Stop: 09/20/23 13:16 Last Admin: 09/20/23 13:37 Dose: 1 tab Documented By: KF Vital Signs Vital signs: Vital Signs - 8 hr 09/20/23 12:17 Temperature 98.8 F Pulse Rate 66 Respiratory Rate 18 Blood Pressure 123/74 Pulse Oximetry 97 Oxygen Delivery Method Room Air <Anais Ferrer DO - Last Filed: 09/22/23 09:53> Orders Ordered: Discontinued Medications Hydrocodone Bitart/Acetaminophen (Hydrocodone/Acet 10/325 Tablet) 1 tab PO NOW ONE Stop: 09/20/23 13:16 Last Admin: 09/20/23 13:37 Dose: 1 tab Documented By: KF Vital Signs Vital signs: Vital Signs - 8 hr 09/20/23 12:17 Temperature 98.8 F Pulse Rate 66 Respiratory Rate 18 Blood Pressure 123/74 Pulse Oximetry 97 Oxygen Delivery Method Room Air MDM - Extremity Injury (Upper) <Hernan Larson PA-C - Last Filed: 09/20/23 13:40> [facility] Narrative Medical decision making narrative: 43-year-old male with past medical history chronic pain presents to the ED with left elbow pain for 2 weeks. Concern for fracture/dislocation versus musculoskeletal sprain/strain versus other. Will obtain x-ray. Will reassess. Will give patient is scheduled dose of hydrocodone for pain control. X-ray without fractures or dislocation or other acute findings. Patient's symptoms most consistent with a musculoskeletal sprain/strain. Patient has a splint at home to use for the next few days. 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 ED return precautions discussed with patient. Patient verbalized understanding. Medical records reviewed: Yes Discharge Plan Departure Patient Disposition: Home Clinical Impression: Elbow injury Qualifiers: Encounter type: initial encounter Laterality: left Qualified Code(s): S59.902A - Unspecified injury of left elbow, initial encounter Instructions: DI for Elbow Sprain Activity Restrictions/Additional Instructions: You were evaluated in the ED today for an elbow injury. Your x-ray does not show any fractures or dislocations. Your symptoms are likely due to a musculoskeletal sprain/strain. You may take pain medications as prescribed by your pain specialist. Please follow-up with your PCP as soon as possible. Return to the ED if you have worsening symptoms, weakness, numbness, tingling. Prescriptions: No Action methocarbamol 750 mg tablet 750 mg PO BEDTIME ibuprofen 400 mg tablet 400 mg PO Q8H PRN (Reason: Pain) acetaminophen [Tylenol] 325 mg capsule 650 mg PO Q6H PRN (Reason: Pain) lamotrigine [Lamictal] 100 mg tablet 100 mg PO DAILY prazosin 2 mg capsule 2 mg PO BEDTIME docusate sodium 100 mg capsule 100 mg PO BID Qty: 20 0RF methylphenidate HCl [Ritalin] 10 mg Tablet 10 mg PO BID oxycodone 5 mg tablet 5 mg PO Q6H PRN (Reason: post operative pain) Qty: 30 0RF docusate sodium 100 mg capsule 100 mg PO BID Qty: 20 0RF hyoscyamine sulfate 0.125 mg tablet 0.125 mg PO BID-QID PRN (Reason: dyspepsia) Qty: 20 0RF ondansetron 4 mg tablet,disintegrating 4 mg PO TID-QID PRN (Reason: nausea and vomiting) Qty: 10 0RF hydrocodone-acetaminophen 5-325 mg tablet 1 tab PO Q6H PRN (Reason: pain) Qty: 10 0RF diazepam [Valium] 10 mg tablet 10 mg PO TID PRN (Reason: muscle spasm) Qty: 10 0RF hydrocodone-acetaminophen [[place]] 5-325 mg tablet 1 tab PO Q6H PRN (Reason: pain) Qty: 10 0RF gabapentin 600 mg tablet 600 mg PO TID cetirizine 10 mg tablet 10 mg PO BID PRN (Reason: Allergy Symptoms) cyclobenzaprine 10 mg tablet 10 mg PO Q8H PRN (Reason: muscle spasm) Qty: 21 0RF methylprednisolone [Medrol ([place])] 4 mg tablets,dose pack See Rx Instructions .ROUTE .COMPLEX Qty: 21 0RF Rx Instructions: orally per package directions prednisone 10 mg tablet See Rx Instructions .ROUTE .COMPLEX Qty: 30 0RF Rx Instructions: Day 1,2,3: 40mg PO Daily Day 4,5,6: 30mg PO Daily Day 7,8,9: 20mg PO Daily Day 10,11,12: 10mg PO Daily #30 ketorolac 10 mg tablet 10 mg PO Q6H PRN (Reason: pain) Qty: 14 0RF Referrals: Miscellaneous,Doctor, MD [Primary Care Provider] - Stand Alone Forms: Patient Portal/API ED Sign-out <Anais Ferrer DO - Last Filed: 09/22/23 09:53> Cosign ED Attending Anju Attestation: I was immediately available in the department for consultation.
[2023-09-20] MEDS: HYDROCODONE/ACET 10/325 TABLET 1 TAB PO (13:37)
== END 2023-09-20 13:41 | disposition home or self-care (01) ==
PROVIDERS: Emergency Provider Student in an Organized Health Care Education/Training Program
DX: S59.902A Unspecified injury of left elbow, initial encounter (principal); W18.30XA Fall on same level, unspecified, initial encounter
CPT/HCPCS: 73080; 99283